=== PATIENT | female | born 1960 | race Caucasian/White ===

== ENCOUNTER 2019-08-15 11:02 | Observation (INO) | payer BC, SELFPAY ==
[2019-08-15] VITALS (11 sets, daily range): BP systolic 127–162; BP diastolic 62–79; PULSE 45–84; RESP 14–22; TEMP 36.7–37.1; O2SAT 95–100; BMI 38.9
--- NOTE | ~2019-08-15 | XR_ITS ---
EXAMINATION: XR chest 2V DATE: 08/15/2019 11:48 INDICATION: Left chest pain. Shortness of breath. TECHNIQUE: Frontal and lateral views of the chest were obtained. COMPARISON: Chest 2 views 07/18/2019 FINDINGS: The chest demonstrates clear lungs without pneumonia, pleural effusion, or pneumothorax. Th e heart size is normal. IMPRESSION: 1. No acute cardiopulmonary disease. Reviewed, dictated and finalized at location A. [employer]
--- NOTE | ~2019-08-15 | CT_ITS ---
EXAMINATION: CT brain wo con DATE: 08/15/2019 11:42 INDICATION: Generalized weakness. TECHNIQUE: Computed tomography (CT) of the head was performed without intravenous contrast. The mA wa s adjusted according to patient size. Iterative reconstruction technique was employed. The dose-lengt h product was 605.33 mGy-cm. COMPARISON: Head CT 05/24/2019 FINDINGS: There is no intracranial hemorrhage, acute infarction, or abnormal intracranial mass lesion . The ventricles are normal in size. The orbits are normal. There is mild mucosal thickening in the e thmoid sinuses. The mastoid air cells are normal. IMPRESSION: 1. Normal brain. Reviewed, dictated and finalized at location [facility]. [employer] IMPRESSION: 1. Normal brain.
--- NOTE | 2019-08-15 11:13 | ECG_ITS ---
Measurements Intervals [place] Rate: 59 P: 46 SD: 141 QRS: 18 QRSD: 104 T: 141 QT: 456 QTc: 452 Interpretive Statements SINUS BRADYCARDIA ST-T WAVE ABNORMALITY IN ANTEROLATERAL LEADS- CONSIDER ISCHEMIA BASELINE ARTIFACT- V6 ABNORMAL ECG Electronically Signed On 08-15-2019 12:05:13 TURNTABLE MAN by Dirk Gamez D.O.
[2019-08-15] MEDS: ASPIRIN 81 MG CHEWABLE TABLET 324 MG (11:30)
--- NOTE | 2019-08-15 11:53 | ED.CHESTPAIN ---
HPI - Chest Pain General Chief Complaint: Chest Pain Stated Complaint: MULTIPLE C/O Time Seen by Provider: 08/15/19 11:29 Source: patient Mode of arrival: ambulatory Limitations: no limitations History of Present Illness HPI narrative: Pt is a 59 y/o female who presents to the ED with c/o constant lt sided CP that started last night. Pt states that her CP started while she was walking into work last night. She notes that she has a mile walk from her car into work and she was 1/[address] in when her CP started. She reports associated lt neck pain, lt arm numbness, SOB, sweats, nausea, and lightheadedness. She got into work, sat down, and drank water but was not feeling better so she went home. This morning she called her PCP's office, Dr. Brown and they recommended she come to the ED. Pt is still having lt sided CP and she now describes it as chest heaviness. Pt also reports diarrhea for a week and a half and states that she has sharp/cramping lower ABD pain. She states that she has some rhinorrhea, but she denies cough, cold, or congestion. Pt denies BLE swelling or pain. MD complaint: chest pain Onset (ago): hour(s) (last night) Timing of current episode: constant Onset: during exertion Pain location: left chest Pain radiation: left arm (numbness) and neck (lt) Quality: heaviness Relieving factors: nothing Exacerbating factors: nothing Associated symptoms: nausea, diaphoresis and dyspnea Related Data Home Medications Medication Instructions Recorded Confirmed clonazepam 1 mg PO HS 05/24/19 05/24/19 omeprazole 20 mg capsule,delayed 20 mg PO DAILY 05/29/19 release Allergies Allergy/AdvReac Type Severity Reaction Status Date / Time losartan AdvReac Intermediate tachycardia Verified 07/24/19 14:32 lisinopril AdvReac Mild Cough Verified 07/24/19 14:32 Review of Systems Review of Systems: Narrative: CONSTITUTIONAL: Reports sweats. ENT: Reports rhinorrhea. Denies congestion CARDIOVASCULAR: Reports lt sided CP and lightheadedness. Denies BLE edema RESPIRATORY: Reports SOB. Denies cough GASTROINTESTINAL: Reports nausea, lower ABD pain, diarrhea MUSCULOSKELETAL: Reports lt neck pain. Denies BLE pain. All systems reviewed & are unremarkable except as noted in HPI and below PMFSH Past Medical History Medical History Anxiety Arthritis Deviated septum Diabetes mellitus Fracture of right ankle GERD (gastroesophageal reflux disease) History of rectal polyps Tear of meniscus of left knee Surgical History Surgical History H/O cardiac catheterization H/O colonoscopy H/O oophorectomy H/O tubal ligation H/O: hysterectomy History of arthroplasty of right ankle History of repair of right rotator cuff History of salpingectomy Social History Social History Smoking status: Former smoker Alcohol intake: never Gender identity (if verbalized by the patient): Female Exam Narrative: Exam Narrative: GENERAL: Well-appearing, well-nourished, and in no acute distress. HEAD: Normocephalic, atraumatic. EYES: PERRLA and EOMI. ENT: Nares clear, no rhinorrhea or epistaxis. Mucous membranes moist. NECK: Supple. CHEST: Clear to auscultation. No respiratory distress. Lt sided reproducible chest wall tenderness HEART: Regular rate and rhythm. No murmur heard. Normal peripheral pulses. ABDOMEN: Soft, nontender, nondistended, normal active bowel sounds. EXTREMITIES: Normal range of motion. No edema. SKIN: Warm, dry, no rash. NEURO: No focal deficits. Alert and oriented X3. Course Course Emergency Course: Patient presenting for evaluation of left-sided chest pain that occurred with exertion. Does seem somewhat consistent with stable angina given exertional symptoms. Pain did relieve following administration of IV fluids, antinausea medicine and morphine. Patient with a heart score of 5 given
[2019-08-15] MEDS: SODIUM CHLORIDE 0.9% IV 1,000 ML 999 ML IV CONT ×2 (11:57→13:41)
[2019-08-15 12:00] LABS: Basophils Percent Auto 0.6 % (0.2-1.2); Eosinophils Percent Auto 0.6 % (0-4.4); Hematocrit 38.7 % (37.0-47.0); Hemoglobin 12.8 g/dL (12.0-15.0); Immature Granulocyte Absolute 0.04 K/mm3 (0.00-0.031); Immature Granulocyte Percent A 0.6 % (0-0.5); Lymphocytes Absolute Auto 1.95 K/mm3 (0.9-3.2); Lymphocytes Percent Auto 30.7 % (18.3-44.2); Mean Corpuscular HGB Conc 33.1 g/dl (32-36); Mean Corpuscular Hemoglobin 29.2 pg (26-34); Mean Corpuscular Volume 88.4 fl (80-100); Mean Platelet Volume 9.5 fl (7.4-10.4); Monocytes Absolute Auto 0.4 K/mm3 (0.1-0.6); Monocytes Percent Auto 6.9 % (2.6-8.5); Neutrophils Absolute Auto 3.8 K/mm3 (1.3-6.7); Neutrophils Percent Auto 60.6 % (45.5-73.1); Platelet Count Result 271 k/mm3 (150-375); Red Blood Count 4.38 M/mm3 (4.2-5.4); Red Cell Distribution Width 12.7 % (11.5-14.5); White Blood Count 6.4 K/mm3 (4.5-10.0)
[2019-08-15 12:09] LABS: Partial Thromboplastin Time 26.2 SECONDS (22.3-36.8); Prothrombin Time 13.2 Seconds (11.1-14.7)
[2019-08-15 12:11] LABS: Alanine Aminotransferase 21 U/L (4-35); Albumin Level 3.8 g/dL (3.5-5.1); Alkaline Phosphatase 75 U/L (38-126); Aspartate Amino Transferase 22 U/L (14-36); Bilirubin,Total 0.3 mg/dL (0.2-1.3); Blood Urea Nitrogen 11 mg/dL (7-17); Carbon Dioxide 27 mmol/L (22-30); Chloride 99 mmol/L (98-107); Estimated CRCL calculation 111 ml/min; Estimated Glomerular Filt Rate > 60; Glucose 218 mg/dL (65-105); Lipase 83 U/L (23-300); Potassium 3.7 mmol/L (3.4-5.0); Sodium 135 mmol/L (137-145)
[2019-08-15 12:23] LABS: Troponin I < 0.012 ng/mL (0.000-0.034)
[2019-08-15] MEDS: ONDANSETRON INJ 4 MG/2 ML VIAL IV PUSH (13:41)
[2019-08-15] MEDS: MORPHINE SULFATE 4 MG/ML INJ IV PUSH (13:42)
[2019-08-15 13:54] LABS: Add Urine Microscopic? YES; Appearance Urine Clear (Clear); Bilirubin Urine Negative (Negative); Blood Urine 1+ (Negative); Color Urine Yellow (Yellow); Glucose Urine UA 1+ mg/dL (Negative); Ketones Urine Trace mg/dL (Negative); Leukocyte Esterase Ur Negative LEU/UL (Negative); Mucus Urine Few /lpf; Nitrate Urine Negative (Negative); Protein Urine Negative (Negative); Squamous Epithelial Cell Urine Occasional /hpf (Few); Urobilinogen Urine Negative mg/dL (<2.0); WBC Urine 0-3 /hpf
[2019-08-15 15:13] LABS: Troponin I < 0.012 ng/mL (0.000-0.034)
--- NOTE | 2019-08-15 15:25 | ADMGEN ---
This patient, Lea Shields, was admitted to [facility]. Patient/family oriented to hospital policies and general routines including ID bracelet, bed and alarms, visiting hours, pain management, procedures, bathroom and other care routines, personal items, smoking policy, room service/diet, and visiting hours. Valuables list has been completed. Information on how to activate the Rapid Response Team has been discussed. Patient/Family are encouraged to report perceived risks to care and to ask questions if they do not understand what they are told or what they should do.
--- NOTE | 2019-08-15 16:00 | ECG_ITS ---
Measurements Intervals [place] Rate: 46 P: 47 OR: 156 QRS: 26 QRSD: 104 T: 33 QT: 461 QTc: 404 Interpretive Statements SINUS BRADYCARDIA BORDERLINE ST-T WAVE ABNORMALITY- DIFFUSE LEADS ABNORMAL ECG Electronically Signed On 08-15-2019 16:55:16 COMMAND CENTER ANALYST by Dirk Gamez D.O.
--- NOTE | 2019-08-15 16:15 | PC.NURSE ---
DR. YUAN HERE TO SEE PT AT BEDSIDE. CONDITION UPDATE GIVEN. AWARE OF PT. C/O ONGOING LOW LEVEL PRESSURE L. UPPER CHEST/SHOULDER AREA. WILL CONTINUE TO MONITOR.
--- NOTE | 2019-08-15 16:59 | PM.CNCAR ---
Assessment and Plan Assessment and plan (1) Atypical chest pain: Code(s): R07.89 - Other chest pain Status: Acute Assessment and Plan: Obtain echo and treadmill stress test in AM. (2) Hypertension: Qualifiers: Hypertension type: essential hypertension Qualified Code(s): I10 - Essential (primary) hypertension Code(s): I10 - Essential (primary) hypertension Status: Acute Assessment and Plan: Stable. (3) Diabetes mellitus: Code(s): E11.9 - Type 2 diabetes mellitus without complications Status: Acute Assessment and Plan: Continue same home medication. (4) Smoking: Code(s): F17.200 - Nicotine dependence, unspecified, uncomplicated Status: Acute Assessment and Plan: Counseled regarding smoking cessation. History of Present Illness History of Present Illness Consult date/time: 08/15/19 16:59 Consult from ED for chest pain. 59 yr old woman with history of DM, hypertension presents to ED for chest pain. States it is a constant lt sided CP that started last night. Pt states that her CP started while she was walking into work last night. She notes that she has a mile walk from her car into work and she was 1/[address] in when her CP started. She reports associated lt neck pain, lt arm numbness, SOB, sweats, nausea, and lightheadedness. She got into work, sat down, and drank water but was not feeling better so she went home. This morning she called her PCP's office, Dr. Brown and they recommended she come to the ED. Pt is still having lt sided CP and she now describes it as chest heaviness. Currently her pain is 1/10 in intensity. Troponins are negative x [address]-T wave abnormality but she had a cath on 08/11/17 for abnormal EKG also that showed non-obstructive CAD (Dr. Sheth: LAD mid 30% stenosis, Diag 10-20% stenosis). Admits to smoking a few cigarettes per day. She does not exercise. Reason For Visit: Chest Pain Review of Systems Constitutional: Constitutional: Reports as per HPI Cardiovascular: Cardiovascular: Reports as per HPI, Reports chest pain, Reports diaphoresis and Denies lightheadedness Respiratory: Respiratory: Reports as per HPI and Reports dyspnea on exertion Gastrointestinal: Gastrointestinal: Reports as per HPI and Denies abdominal pain Genitourinary: Genitourinary: Reports as per HPI and Denies urinary frequency Musculoskeletal: Musculoskeletal: Reports as per HPI Neurologic: Reports as per HPI and Denies Abnormal speech present [facility] Past Medical History Medical History Anxiety Arthritis Deviated septum Diabetes mellitus Fracture of right ankle GERD (gastroesophageal reflux disease) History of rectal polyps Tear of meniscus of left knee Surgical History Surgical History H/O cardiac catheterization H/O colonoscopy H/O oophorectomy H/O tubal ligation H/O: hysterectomy History of arthroplasty of right ankle History of repair of right rotator cuff History of salpingectomy Social History Social History Smoking status: Former smoker Alcohol intake: never Gender identity (if verbalized by the patient): Female Meds Home Medications and Allergies Home Medications Medication Instructions Recorded Confirmed Type clonazepam 1 mg PO HS 05/24/19 05/24/19 History cyclobenzaprine 10 mg PO TID PRN #20 tablet 05/24/19 Rx omeprazole 20 mg capsule,delayed 20 mg PO DAILY 05/29/19 History release duloxetine 30 mg capsule,delayed 30 mg PO DAILY #90 cap 07/07/19 Rx release nebivolol 5 mg tablet 5 mg PO DAILY #30 tablet 07/24/19 07/24/19 Rx celecoxib 200 mg capsule 200 mg PO DAILY #90 cap 07/27/19 Rx metformin 500 mg tablet 1,000 mg PO BID #360 tablet 07/31/19 Rx Allergies Allergy/AdvReac Type Severity Reaction Status Date / Time [facility]
[2019-08-15 18:44] LABS: Troponin I < 0.012 ng/mL (0.000-0.034)
[2019-08-16] VITALS: BP 135/58; PULSE 45; RESP 15; O2SAT 99
[2019-08-16 02:00] VITALS: PULSE 46
[2019-08-16] MEDS: ACETAMINOPHEN 325 MG TABLET 650 MG PO (03:04)
[2019-08-16 04:00] VITALS: BP 150/84; PULSE 46; RESP 15; O2SAT 98
[2019-08-16 05:36] LABS: Glucose Point of Care 166 (65-105)
[2019-08-16 06:00] VITALS: PULSE 46
[2019-08-16] MEDS: IBUPROFEN 400 MG TABLET PO ×2 (06:23→12:02)
[2019-08-16 07:45] VITALS: BP 150/75; PULSE 48; RESP 18; TEMP 36.4; O2SAT 96
--- NOTE | 2019-08-16 08:00 | ECHO_ITS ---
Patient Info Name: Lea Shields Age: 59 years : 1960 Gender: Female Ht: 68 in Wt: 255 lbs BSA: 2.41 m2 HR: 59 bpm BP: 101 / 60 mmHg Technical Quality: Good Exam Date: 08/16/2019 11:25 AM Exam Location: [facility] Exam Room: [facility] Patient Status: Inpatient Admit Date: 08/15/2019 Staff Ordering Physician: Dirk Gamez DO Production Leader: Cecelia Olivia RDCS Attending Provider: Dirk Gamez DO Referring Physician: Franco CEJA; Exam Type: CA echo doppler color flow Study Info Indications - chest pain Complete two-dimensional, color flow and Doppler transthoracic echocardiogram is performed. Summary 1. Left ventricular chamber dimension is normal. 2. Left ventricular systolic function is normal, estimated at 60-65%. 3. There is mildly increased left ventricular wall thickness. 4. The left ventricular diastolic function is grade III diastolic dysfunction. 5. E/e' 9 is minimally elevated. 6. Left atrial chamber dimension is moderately enlarged. 7. There is trace tricuspid valve regurgitation. 8. No pulmonary hypertension, estimated pulmonary arterial systolic pressure is 34 mmHg. 9. There is trace pulmonic regurgitation. 10. Dilated inferior vena cava with >50% collapse upon inspiration consistent with elevated right atrial pressure, 10 mmHg. Left Ventricle E/e' 9 is minimally elevated. Left ventricular chamber dimension is normal. Left ventricular systolic function is normal, estimated at 60-65%. There is mildly increased left ventricular wall thickness. The left ventricular diastolic function is grade III diastolic dysfunction. Right Ventricle Right ventricular chamber dimension is normal. Right ventricular systolic function is normal. Left Atria Left atrial chamber dimension is moderately enlarged. Right Atria Right atrial chamber dimension is normal. Aortic Valve The aortic valve is trileaflet. There is no aortic valve stenosis. There is no aortic valve regurgitation. Pulmonic Valve There is trace pulmonic regurgitation. Mitral Valve There is no mitral valve stenosis. There is no mitral valve regurgitation. Tricuspid Valve There is trace tricuspid valve regurgitation. No pulmonary hypertension, estimated pulmonary arterial systolic pressure is 34 mmHg. Pericardium/Pleural There is no pericardial effusion. Inferior Vena Cava Dilated inferior vena cava with >50% collapse upon inspiration consistent with elevated right atrial pressure, 10 mmHg. Aorta The aortic root size at the sinus of Valsalva is normal. Left Ventricular Outflow Tract Name Value Normal LVOT 2D LVOT Diameter 2.0 cm LVOT Doppler LVOT Peak Gradient 7 mmHg LVOT Mean Gradient 4 mmHg LVOT VTI 32 cm LVOT VTI/AV VTI Ratio 0.9 LVOT Stroke Volume 104 ml LVOT CO 19.2 l/min LVOT CI 8.0 l/min/m2 Pulmonic Valve
--- NOTE | 2019-08-16 08:30 | EST_ITS ---
Patient Info Name: Lea Shields Age: 59 years : 1960 Gender: Female Ht: 68 in Wt: 255 lbs BSA: 2.41 m2 Exam Date: 08/16/2019 8:31 AM Exam Location: [facility] Stress Patient Status: Inpatient Admit Date: 08/15/2019 Staff Ordering Physician: Dirk Gamez DO Attending Provider: Dirk Gamez DO Exercise Technologist: Laith Romero RDCS, RT Exercise Physician: Dirk Gamez DO Exam Type: CA stress test treadmill Study Info A treadmill exercise stress test was performed. Summary 1. 1. Inconclusive Sahil exercise stress test for ischemic ST changes by ECG criteria due to achieving only 60% MPHR for age group. 2. 2. Reduced functional capacity, achieving 7 METs of workload and limited by dizziness. 3. 3. Appropriate HR response to exercise. 4. 4. Appropriate HR recovery at 1 minute post exercise. 5. 5. Hypertensive response to exercise. 6. 6. No imaging with stress testing. 7. 7. Patient informed of the above results. Protocol: Sahil Stress ECG Details Stage: REST Duration (min): 1 min : 30 sec Speed (mph): 0.0 Grade (%): 0 HR (bpm): 48 SBP (mmHg): 130 DBP (mmHg): 83 METS: --- Stage: REST Duration (min): 3 min : 59 sec Speed (mph): 0.0 Grade (%): 0 HR (bpm): 53 SBP (mmHg): 130 DBP (mmHg): 83 METS: --- Stage: STAGE 1 Duration (min): 1 min : 0 sec Speed (mph): 1.7 Grade (%): 10 HR (bpm): 78 SBP (mmHg): 130 DBP (mmHg): 83 METS: --- Stage: STAGE 1 Duration (min): 2 min : 0 sec Speed (mph): 1.7 Grade (%): 10 HR (bpm): 87 SBP (mmHg): 130 DBP (mmHg): 83 METS: --- Stage: STAGE 1 Duration (min): 3 min : 0 sec Speed (mph): 1.7 Grade (%): 10 HR (bpm): 88 SBP (mmHg): 130 DBP (mmHg): 83 METS: --- Stage: STAGE 2 Duration (min): 1 min : 0 sec Speed (mph): 2.5 Grade (%): 12 HR (bpm): 95 SBP (mmHg): 130 DBP (mmHg): 83 METS: --- Stage: STAGE 2 Duration (min): 2 min : 0 sec Speed (mph): 0.0 Grade (%): 0 HR (bpm): 89 SBP (mmHg): 130 DBP (mmHg): 83 METS: --- Stage: STAGE 2 Duration (min): 3 min : 0 sec Speed (mph): 0.0 Grade (%): 0 HR (bpm): 67 SBP (mmHg): 193 DBP (mmHg): 117 METS: --- Stage: STAGE 2 Duration (min): 4 min : 0 sec Speed (mph): 0.0 Grade (%): 0 HR (bpm): 57 SBP (mmHg): 165 DBP (mmHg): 106 METS: --- Stage: STAGE 2 Duration (min): 5 min : 0 sec Speed (mph): 0.0 Grade (%): 0 HR (bpm): 53 SBP (mmHg): 165 DBP (mmHg): 106 METS: --- Stage: STAGE 2 Duration (min): 5 min : 26 sec Speed (mph): 0.0 Grade (%): 0 HR (bpm): 58 SBP (mmHg): 165 DBP (mmHg): 106 METS: --- Stage: RECOVERY Duration (min): 0 min : 24 sec Speed (mph): 0.0 Grade (%): 0 HR (bpm): 55 SBP (mmHg): 165 DBP (mmHg): 106 METS: --- Rest HR: 53 bpm Peak HR: 98 bpm Rest S
--- NOTE | 2019-08-16 08:40 | PC.NURSE ---
0800 patient taken in wheelchair to treadmill stress test.
--- NOTE | 2019-08-16 09:05 | PC.NURSE ---
0900 PT BACK FROM STRESS TEST.
[2019-08-16 11:24] VITALS: BP 106/61; PULSE 60; RESP 16; O2SAT 99
--- NOTE | 2019-08-16 11:24 | PC.NURSE ---
Echo being done at bedside.
[2019-08-16] MEDS: CELECOXIB 200 MG CAPSULE PO (12:00)
[2019-08-16] MEDS: ASPIRIN 81 MG CHEWABLE TABLET PO (12:01)
[2019-08-16] MEDS: DULOXETINE HCL 30 MG CAPSULE.DR PO (12:01)
--- NOTE | 2019-08-16 13:56 | PM.DS ---
DS: Diagnosis Admitting Diagnosis Admitting Diagnosis: Other chest pain 59 yr old woman with history of DM, mild CAD, hypertension presents to ED for chest pain. She was ruled out for [place] by series of troponins and EKG. Her echo shows normal EF and no wall motion abnormalities. She had stress test but she only achieved 60% MPHR for age group due to dizziness which is invalid for ischemia. She denies any more chest pain. Vitals are stable. DS: Summary Time Spent with Patient Time attestation: Total time spent providing and/or coordinating discharge services: Exam Const: General: comfortable and no acute distress Neck: Neck: no JVD Carotids: no bruits Resp: Effort & Inspection: normal respiratory effort Auscultation: no crackles, no rales, no rhonchi and no wheezes Cardio: Rate: regular rate Rhythm: regular rhythm Heart sounds: no murmurs GI: GI Palp: Yes Soft to palpation and No Tenderness to palpation present (GI) Neuro: Speech: normal speech Extrem: Right lower extremity: no edema Left lower extremity: no edema DS: Data Data Completed and Pending Labs on day of discharge: Labs from last 24 hours 08/16/19 08/15/19 08/15/19 05:33 18:17 14:43 POC Capillary Glucose 166 H Troponin I < 0.012 < 0.012 Discharge Plan Discharge Attending physician on discharge: Dirk Gamez Discharging Clinician: Dirk Gamez Patient Disposition: Home, Self-Care Activity: as tolerated Diet: heart healthy Patient Instructions: Chest Pain (DC), Antibiotic Form Stand Alone Forms: General Discharge Information Follow-up/Referrals: Camden Brown MD [Primary Care Provider] - Discharge Medications: Continued Bystolic 5 mg tablet 5 mg PO DAILY Qty: 30 RF: 3 omeprazole 20 mg capsule,delayed release(DR/EC) 20 mg PO DAILY PRN (Reason: Acid Reflux) RF: 0 clonazepam 1 mg tablet 1 mg PO HS PRN (Reason: Sleep) RF: 0 duloxetine [Cymbalta] 30 mg capsule,delayed release(DR/EC) 30 mg PO DAILY Qty: 90 RF: 1 celecoxib [Celebrex] 200 mg capsule 200 mg PO DAILY Qty: 90 RF: 0 metformin 500 mg tablet 1,000 mg PO BID Qty: 360 RF: 0 Date of admission: 08/15/19 14:46 Primary Care Provider: Camden Brown Admitting Provider: Dirk Gamez Attending physician on admission: Dirk Gamez Condition: Stable
--- NOTE | 2019-08-16 15:26 | PC.NURSE ---
Dr Gamez here. Orders for discharge received. Detailed written and verbal instructions reviewed w patient and at bedside. Both verbalize understanding. IV dc'd. Pt ambulated out.
== END 2019-08-16 15:40 | disposition home or self-care (01) ==
LOC: ANHED 14:53 → ANHCPC 14:55
PROVIDERS: Admitting Provider Internal Medicine Cardiovascular Disease; Emergency Provider Emergency Medicine; PCP Family Medicine; Visit Provider Internal Medicine Cardiovascular Disease
DX: R07.89 Other chest pain (principal); I25.10 Atherosclerotic heart disease of native coronary artery without angina pectoris; I10 Essential (primary) hypertension; K21.9 Gastro-esophageal reflux disease without esophagitis; E11.9 Type 2 diabetes mellitus without complications; F17.210 Nicotine dependence, cigarettes, uncomplicated; Z79.899 Other long term (current) drug therapy; Z96.661 Presence of right artificial ankle joint
CPT/HCPCS: 36415; 70450; 71046; 80053; 81001; 83690; 84484; 85025; 85610; 85730; 93005; 93017; 93306; 96361; 96374; 96375; 99285; A9270; G0378; J0131; J2270; J2405; J7030

== ENCOUNTER 2019-08-28 00:27 | Day surgery (SDC) | payer BC, SELFPAY ==
[2019-08-28] VITALS (8 sets, daily range): BP systolic 115–131; BP diastolic 54–73; PULSE 54–65; RESP 15–21; TEMP 36.7–36.9; O2SAT 95–98; BMI 38.3
--- NOTE | 2019-08-28 06:43 | SUR.PREOP ---
ARRIVES AMBULATORY TO [facility] W/ AT SIDE FOR SCHEDULED LHC W/ DR. GREY. DENIES CP OR SOB ON ARRIVAL. A&OX4. STEADY GAIT. ORIENTED TO ROOM AND PROCEDURE. QUESTIONS ANSWERED. IV STARTED, LABS SENT, VS OBTAINED, SKIN PREPPED, CONSENT SIGNED. WILL CONTINUE TO MONITOR.
[2019-08-28 06:56] LABS: Basophils Percent Auto 0.4 % (0.2-1.2); Eosinophils Absolute Auto 0.1 K/mm3 (0-0.3); Eosinophils Percent Auto 0.6 % (0-4.4); Hematocrit 38.2 % (37.0-47.0); Hemoglobin 12.9 g/dL (12.0-15.0); Immature Granulocyte Absolute 0.04 K/mm3 (0.00-0.031); Immature Granulocyte Percent A 0.5 % (0-0.5); Lymphocytes Absolute Auto 1.93 K/mm3 (0.9-3.2); Lymphocytes Percent Auto 24.7 % (18.3-44.2); Mean Corpuscular HGB Conc 33.8 g/dl (32-36); Mean Corpuscular Hemoglobin 29.4 pg (26-34); Mean Platelet Volume 9.1 fl (7.4-10.4); Monocytes Absolute Auto 0.6 K/mm3 (0.1-0.6); Monocytes Percent Auto 7.5 % (2.6-8.5); Neutrophils Absolute Auto 5.2 K/mm3 (1.3-6.7); Neutrophils Percent Auto 66.3 % (45.5-73.1); Platelet Count Result 224 k/mm3 (150-375); Red Blood Count 4.39 M/mm3 (4.2-5.4); Red Cell Distribution Width 12.4 % (11.5-14.5); White Blood Count 7.8 K/mm3 (4.5-10.0)
[2019-08-28 07:08] LABS: Blood Urea Nitrogen 12 mg/dL (7-17); Calcium 8.9 mg/dL (8.4-10.2); Carbon Dioxide 25 mmol/L (22-30); Chloride 102 mmol/L (98-107); Estimated Glomerular Filt Rate > 60; Glucose 258 mg/dL (65-105); Potassium 3.8 mmol/L (3.4-5.0); Sodium 140 mmol/L (137-145)
--- NOTE | 2019-08-28 09:20 | WPDMODSED ---
Moderate Sedation Note-Pt Data Patient Data Diagnosis: Intermittent nonexertional chest pain atypical of angina in a patient who has a history of angiographically nonocclusive coronary disease on a previous exam In 2018 Present Complaint: no complaints this morning Procedure to be performed/Plan: left heart catheterization Allergies Allergy/AdvReac Type Severity Reaction Status Date / Time losartan AdvReac Intermediate tachycardia Verified 08/28/19 07:17 lisinopril AdvReac Mild Cough Verified 08/28/19 07:17 Home Medications Medication Instructions Recorded Confirmed Type clonazepam 1 mg PO HS PRN 05/24/19 08/25/19 History duloxetine 30 mg capsule,delayed 30 mg PO DAILY #90 cap 07/07/19 08/28/19 Rx release celecoxib 200 mg capsule 200 mg PO DAILY #90 cap 07/27/19 08/28/19 Rx metformin 500 mg tablet 1,000 mg PO BID #360 tablet 07/31/19 08/28/19 Rx aspirin [Adult Low Dose Aspirin] 81 mg PO HS 08/25/19 08/28/19 History atorvastatin 20 mg PO HS 08/25/19 08/28/19 History hydralazine 25 mg PO BID 08/25/19 08/28/19 History nebivolol [Bystolic] 2.5 mg PO HS 08/25/19 08/28/19 History Current Medications: Active Medications Sodium Chloride (Normal Saline Iv) 500 mls @ 100 mls/hr IV CONT .Q5H CJ Sedation/Anesthesia: No previous sedation/anesthesia problems (including family history). [facility] Social History Social History Smoking packs per day: 0.5 Smoking cigarettes per day: 10.0 Years smoked: 3 Smoking pack-years: 1.50 Smoking status: Current some day smoker Tobacco type: cigarettes Additional smoking assessment comments: WAS A FORMER SMOKER IN PAST. IN LAST FEW YEARS PICKED IT UP AGAIN Alcohol intake: never Gender identity (if verbalized by the patient): Female Mod Sed Physical Exam Physical Exam Pre Procedural Exam: Normal: Neck, Throat, Airway, Lungs, Heart Size, Heart Rate, Heart Rhythm, Neuro Exam and Extremities and Variation: Appearance ( obese white female no apparent distress) Hours since solid foods: 12 Hours since liquid intake: 12 Internal Medicine - PN: Obj Da Vital Signs Vital Signs: Vital Signs - 24 hr 08/28/19 07:00 Temperature 36.9 C Pulse Rate 57 L Respiratory Rate 16 Blood Pressure 122/71 Pulse Oximetry 98 Meds/Results Medications: Active Medications Generic Name Dose Route Start Last Admin Trade Name Felix PRN Reason Stop Dose Admin Sodium Chloride 500 mls @ 100 mls/hr 08/28/19 06:20 Normal Saline Iv IV CONT .Q5H CJ Labs CBC & Chem 7: 08/28/19 06:49 08/28/19 06:49 Labs: Laboratory Results - last 24 hr 08/28/19 08/28/19 06:49 06:49 WBC 7.8 RBC 4.39 Hgb 12.9 Hct 38.2 MCV 87.0 MCH 29.4 MCHC 33.8 RDW 12.4 Plt Count 224 MPV 9.1 Immature Gran % (Auto) 0.5 Neut % (Auto) 66.3 Lymph % (Auto) 24.7 Steele % (Auto) 7.5 Eos % (Auto) 0.6 Baso % (Auto) 0.4 Lymph # (Auto) 1.93 Steele # (Auto) 0.6 Eos # (Auto) 0.1 Baso # (Auto) 0.0 Abs Immat Gran (auto) 0.04 H Absolute Neuts (auto) 5.2 Absolute Nucleated RBC 0.0 Nucleated RBC % 0.0 Sodium 140 Potassium 3.8 Chloride 102 Carbon Dioxide 25 BUN 12 Creatinine 0.60 L Estim Creat Clear Calc Not Reportable Estimated GFR > 60 Glucose 258 H Calcium 8.9 ASA Classification/Sedation ASA Classification/Sedation ASA Class: II Emergent: No Risks: Risks, benefits and alternatives explained and patient/family accepted plan for sedation. Patient re-evaluated immediately prior to sedation.
--- NOTE | 2019-08-28 09:47 | P.PCNCC_ITS ---
Cardiac Cath Procedure Note Date of procedure:: 08/28/19 Performing physician:: Tai Diana MD Indication:: intermittent chest pain. Reported history of modest CAD identified angiographically in 2018 Brief clinical history:: 59-year-old lady with history of obesity and intermittent episodes of chest pain. She underwent angiography in 2018 which I did personally review this morning and had apparently normal appearing coronary arteries. Because of ongoing symptoms stress testing has been repeated and because of modest abnormalities angiography has been recommended to be repeated. Procedure Procedure performed:: Left heart catheterization with left ventriculography and coronary angiography Angio-Seal to right femoral artery Sedation/Medication given:: fentanyl 50 mg Versed 2 mg case start time 9:30 a.m. case end time 9:45 a.m. sedation provided by Domingo Antony RN, trained observer Access site:: right femoral artery Estimated blood loss:: 15-20 cc Procedure note:: patient was brought to the cardiac catheterization lab in the postabsorptive state the right femoral triangle was prepared in the normal fashion anesthesia was provided with 1% lidocaine infiltrated locally. Using modified Seldinger technique a 5 [place] sheath was placed into the femoral artery. After this left heart catheterization was carried out. I used a 5 [place] angled pigtail catheter to demonstrate left-sided hemodynamics and inject the left ventriculogram in the are AO projection. Following this pullback pressures were measured across the aortic valve. The pigtail catheter was withdrawn and left coronary angiography done was carried out using a 5 [place] FL4 catheter. A 5 [place] JR4 catheter was used to inject the right coronary artery. Angiograms were reviewed and the case was terminated been angiogram was then done of the femoral artery through the sheath after which a 6 [place] Angio- Seal device was deployed with a good hemostatic result. The patient was taken to the holding area for post cath recovery with no sign of groin hematoma nor any other procedural complication. Findings:: Central aortic pressure was 118/70 left ventricle 118 over 3 end- diastolic 12 no systolic gradient pump with year now. The left ventricle is normal in size all segments contract appropriately the global ejection fraction is visually estimated to be 50%. Left main coronary is short but widely patent lad is a large caliber vessel proximally and small caliber in the mid to distal portion. It is angiographically unremarkable free of atherosclerosis. The circumflex is a large caliber vessel and is codominant to the posterior circulation circumflex, the marginal branches and the posterior branches are angiographically free of disease. The right coronary is medium in caliber and codominant and again a small RPDA. The right coronary in small RPDA are angiographically unremarkable. Coronary angiograms are unchanged in comparison with the examination in this laboratory in 2018 Conclusion:: codominant coronary circulation with no angiographic evidence of CAD both today and in my opinion in angiography that was performed previously in 2018. Preserved left ventricular systolic function Angio-Seal hemostasis device deployed to right femoral artery Tai Diana MD FACC
--- NOTE | 2019-08-28 11:17 | SUR.PHASEII ---
0959 Patient returns to [facility] [address] Gallardo. Angioseal to RFA, with no signs of bleeding or hematoma will continue to monitor.
--- NOTE | 2019-08-28 12:09 | SUR.PHASEII ---
1149 Patient ambulated up to bathroom and then to chair. No signs of bleeding or hematoma, will continue to monitor.
--- NOTE | 2019-08-28 13:14 | SUR.PHASEII ---
1300 Discharge instructions reviewed with patient and spouse. All questions answered, IV discontinued, patient dressing and taken out to private vehicle via wheelchair.
== END 2019-08-28 13:38 | disposition home or self-care (01) ==
PROVIDERS: PCP Family Medicine; Visit Provider Specialist
PROC: 4A023N7 Measurement of Cardiac Sampling and Pressure, Left Heart, Percutaneous Approach (ICD-10-PCS; CPT 93452; principal; 2019-08-28 08:30)
DX: R07.89 Other chest pain (principal); R93.1 Abnormal findings on diagnostic imaging of heart and coronary circulation; I10 Essential (primary) hypertension; E78.5 Hyperlipidemia, unspecified; E11.9 Type 2 diabetes mellitus without complications; Z79.84 Long term (current) use of oral hypoglycemic drugs; Z87.891 Personal history of nicotine dependence
CPT/HCPCS: 36415; 80048; 85025; 93458; C1760; C1887; C1894; G0269; J1644; J2250; J3010; J7040

== ENCOUNTER 2019-09-06 12:10 | Outpatient (CLI) | payer BC, SELFPAY ==
--- NOTE | 2019-09-06 20:31 | WPDPFTINT ---
PFT Interpretation PFT Interpretation: DOS: 09/06/2019 REQUESTING: Dr. Grijalva REASON FOR TESTING: Tobacco abuse PULMONARY FUNCTION TESTS Results are reproducible. Spirometry: Mild decreaseFEV1 79% predicted. Mild decrease FVC 77%. FEV1% is normal. No bronchodilator was given. Lung volumes: Normal TLC. Increased RV 134% consistent with mild air trapping. Mild increase airway resistance 158%. Diffusion: DLCO 77%. Normal. Flow volume loop: Mild scooping of the expiratory limb. IMPRESSION: Mild obstructive ventilatory impairment with air trapping. Normal DLCO. No bronchodilator given. Brenda Ordoñez MD
== END 2019-09-06 12:11 | disposition home or self-care (01) ==
PROVIDERS: PCP Family Medicine; Visit Provider Internal Medicine Cardiovascular Disease
DX: Z72.0 Tobacco use (principal); R94.2 Abnormal results of pulmonary function studies
CPT/HCPCS: 94375; 94726; 94729

== ENCOUNTER 2019-12-07 09:12 | Outpatient (CLI) | payer BC, SELFPAY ==
[2019-12-07 09:53] LABS: Hemoglobin A1C 8.3 % (<5.7)
== END 2019-12-07 09:13 | disposition home or self-care (01) ==
PROVIDERS: PCP Family Medicine; Visit Provider Physician Assistant Medical
DX: E11.69 Type 2 diabetes mellitus with other specified complication (principal); E78.5 Hyperlipidemia, unspecified
CPT/HCPCS: 36415; 83036

== ENCOUNTER 2019-12-08 09:21 | Outpatient (CLI) | payer BC, SELFPAY ==
[2019-12-08 10:01] LABS: Alanine Aminotransferase 31 U/L (4-35); Cholesterol 111 mg/dL (0-200); HDL Direct 34 mg/dL; Triglycerides 72 mg/dL (<150)
[2019-12-08 10:12] LABS: LDL Cholesterol Direct 67 mg/dL
== END 2019-12-08 09:22 | disposition home or self-care (01) ==
PROVIDERS: PCP Family Medicine; Visit Provider Internal Medicine Cardiovascular Disease
DX: E11.69 Type 2 diabetes mellitus with other specified complication (principal); E78.5 Hyperlipidemia, unspecified
CPT/HCPCS: 36415; 80061; 84460

== ENCOUNTER 2020-01-17 10:58 | Outpatient (CLI) | payer BC, SELFPAY ==
--- NOTE | 2020-01-23 11:09 | WPDSIXMINUTE ---
Six Minute Walk Six Minute Walk: DOS: 01/17/2020 REQUESTING: Dr Ordoñez REASON FOR TESTING: shortness of breath SIX MINUTE WALK This study was conducted per ATS guidelines. Initial saturation was 94% and pulse was 55. The patient walked for 6 minutes without stopping. Lowest saturation was 90%. Distance walked was 1100 ft/335 m final saturation 90 5%. Highest pulse 103. Pulse returned to baseline after recovery. IMPRESSION: This six minute walk shows mild desaturation to 90% without ana luisa hypoxemia. Distance walked is adequate for age. No supplemental oxygen is indicated with exertion.
== END 2020-01-17 10:59 | disposition home or self-care (01) ==
LOC: ANHPFT 10:59
PROVIDERS: PCP Family Medicine; Visit Provider Internal Medicine Critical Care Medicine
DX: J44.9 Chronic obstructive pulmonary disease, unspecified (principal); R06.02 Shortness of breath
CPT/HCPCS: 94618

== ENCOUNTER 2020-05-03 11:15 | Outpatient (CLI) | payer BC, SELFPAY ==
[2020-05-03 11:57] LABS: Basophils Absolute Auto 0.1 K/mm3 (0.0-0.1); Basophils Percent Auto 0.8 % (0.2-1.2); Eosinophils Percent Auto 0.5 % (0-4.4); Hematocrit 41.3 % (37.0-47.0); Hemoglobin 14.5 g/dL (12.0-15.0); Immature Granulocyte Absolute 0.04 K/mm3 (0.00-0.031); Immature Granulocyte Percent A 0.5 % (0-0.5); Lymphocytes Absolute Auto 2.14 K/mm3 (0.9-3.2); Lymphocytes Percent Auto 27.6 % (18.3-44.2); Mean Corpuscular HGB Conc 35.1 g/dl (32-36); Mean Corpuscular Hemoglobin 30.3 pg (26-34); Mean Corpuscular Volume 86.2 fl (80-100); Mean Platelet Volume 8.7 fl (7.4-10.4); Monocytes Absolute Auto 0.6 K/mm3 (0.1-0.6); Monocytes Percent Auto 7.7 % (2.6-8.5); Neutrophils Absolute Auto 4.9 K/mm3 (1.3-6.7); Neutrophils Percent Auto 62.9 % (45.5-73.1); Platelet Count Result 243 k/mm3 (150-375); Red Blood Count 4.79 M/mm3 (4.2-5.4); Red Cell Distribution Width 12.1 % (11.5-14.5); White Blood Count 7.8 K/mm3 (4.5-10.0)
[2020-05-03 12:12] LABS: Anion Gap 8 mmol/L (8-16); Blood Urea Nitrogen 9 mg/dL (7-17); Calcium 9.4 mg/dL (8.4-10.2); Carbon Dioxide 29 mmol/L (22-30); Chloride 103 mmol/L (98-107); Estimated Glomerular Filt Rate > 60; Glucose 137 mg/dL (65-105); Potassium 4.2 mmol/L (3.4-5.0); Sodium 140 mmol/L (137-145)
[2020-05-03 13:16] LABS: Folic Acid 8.1 ng/mL (2.76->20)
== END 2020-05-03 11:16 | disposition home or self-care (01) ==
LOC: ANHLAB 11:17
PROVIDERS: PCP Family Medicine; Visit Provider Nurse Practitioner Family
DX: E66.9 Obesity, unspecified (principal); R19.7 Diarrhea, unspecified; R53.83 Other fatigue; R20.2 Paresthesia of skin; Z72.0 Tobacco use
CPT/HCPCS: 36415; 80048; 82607; 82746; 83735; 85025

== ENCOUNTER 2020-06-18 08:32 | Outpatient (NON) | payer BC, SELFPAY ==
[2020-06-18 23:32] LABS: SARS-CoV-2 RNA PCR Negative
== END 2020-06-18 08:33 ==
LOC: ANHCOVIDDT 08:34
PROVIDERS: PCP Family Medicine; Visit Provider Family Medicine
DX: R11.2 Nausea with vomiting, unspecified (principal); Z20.828 Contact with and (suspected) exposure to other viral communicable diseases
CPT/HCPCS: 87635; C9803; U0003

== ENCOUNTER 2020-07-02 11:30 | Outpatient (NON) | payer BC, SELFPAY ==
[2020-07-02 23:30] LABS: SARS-CoV-2 RNA PCR Negative
== END 2020-07-02 11:31 ==
LOC: ANHCOVIDDT 11:31
PROVIDERS: PCP Family Medicine; Visit Provider Physician Assistant Medical
DX: R68.89 Other general symptoms and signs (principal); Z20.828 Contact with and (suspected) exposure to other viral communicable diseases
CPT/HCPCS: 87635; C9803; U0003

== ENCOUNTER 2020-07-16 06:36 | Outpatient (CLI) | payer BC, SELFPAY ==
--- NOTE | ~2020-07-16 | MR_ITS ---
EXAMINATION: MR brain/brain stem wo/w con DATE: 07/16/2020 07:43 INDICATION: New daily persistent headache. TECHNIQUE: Magnetic resonance imaging (MRI) of the brain and brainstem was performed without and with 20 mL MultiHance intravenous contrast. Sequences included sagittal and axial T1-weighted FSE, axial diffusion-weighted FS EPI, axial T2*-weighted GRE, axial T2-weighted FLAIR Propeller, and axial T2-we ighted Propeller. Postcontrast sequences included axial and coronal T1-weighted FSE. Apparent diffusi on coefficient (ADC) maps were created. COMPARISON: Head CT 08/15/2019 FINDINGS: There is an empty sella. There is no intracranial hemorrhage, acute infarction, or abnormal intracranial mass lesion. The ventricles are normal in size. There is mild mucosal thickening in the ethmoid sinuses. The mastoid air cells are normal. The orbits are normal. IMPRESSION: 1. Empty sella. Reviewed, dictated and finalized at location A. GRAIN OR LIVESTOCK FARM MANAGER IMPRESSION: 1. Empty sella.
[2020-07-16 07:17] LABS: Estimated Glomerular Filt Rate > 60
[2020-07-16 08:12] LABS: Mean Corpuscular HGB Conc 34.2 g/dl (32-36); Mean Corpuscular Volume 90.5 fl (80-100); Mean Platelet Volume 8.5 fl (7.4-10.4); Platelet Count Result 214 k/mm3 (150-375); Red Cell Distribution Width 13.1 % (11.5-14.5); White Blood Count 6.4 K/mm3 (4.5-10.0)
[2020-07-16 08:24] LABS: Anion Gap 6 mmol/L (8-16); Blood Urea Nitrogen 11 mg/dL (7-17); Carbon Dioxide 30 mmol/L (22-30); Chloride 102 mmol/L (98-107); Estimated Glomerular Filt Rate > 60; Glucose 167 mg/dL (65-105); Potassium 4.2 mmol/L (3.4-5.0); Sodium 138 mmol/L (137-145)
== END 2020-07-16 06:37 | disposition home or self-care (01) ==
PROVIDERS: PCP Family Medicine; Visit Provider Physician Assistant Medical
DX: G44.52 New daily persistent headache (NDPH) (principal)
CPT/HCPCS: 70553; 80048; 84443; 85027; A9577

== ENCOUNTER 2020-07-17 10:29 | Outpatient (CLI) | payer BC, SELFPAY ==
[2020-07-17 11:39] LABS: Cortisol Random 3.97 ug/dL
[2020-07-17 11:43] LABS: Free T4 Free Thyroxine 0.91 ng/mL (0.78-2.19)
[2020-07-20 17:18] LABS: Adrenocorticotropic Hormone 12 pg/mL (6-50)
[2020-07-23 10:54] LABS: FSH 55.6 mIU/mL (***); LH 20.6 mIU/mL (***); Prolactin 5.4 ng/mL (***)
[2020-07-25 00:06] LABS: Estradiol, Ultrasensitive <2 pg/mL
== END 2020-07-17 10:30 | disposition home or self-care (01) ==
PROVIDERS: PCP Family Medicine; Visit Provider Physician Assistant Medical
DX: E23.6 Other disorders of pituitary gland (principal)
CPT/HCPCS: 36415; 82024; 82533; 82670; 83001; 83002; 84146; 84439

== ENCOUNTER → 2020-08-03 12:41 | Outpatient (CLI) | payer BC, SELFPAY ==
[2020-08-04 00:20] LABS: SARS-CoV-2 RNA PCR Negative
== END ==
PROVIDERS: Family Provider Family Medicine; PCP Family Medicine; Visit Provider Internal Medicine Gastroenterology
DX: Z01.812 Encounter for preprocedural laboratory examination (principal); Z20.822 Contact with and (suspected) exposure to COVID-19
CPT/HCPCS: C9803; U0003; U0005

== ENCOUNTER 2020-08-06 01:09 | Day surgery (SDC) | payer BC, SELFPAY ==
[2020-07-24 10:11] VITALS: BMI 35.9
[2020-08-06 07:14] LABS: Glucose Point of Care 163 (65-105)
[2020-08-06 07:15] VITALS: BMI 36.1
[2020-08-06] MEDS: LACTATED RINGERS 1,000 ML 150 ML IV CONT (07:22)
--- NOTE | 2020-08-06 07:56 | WPDANESEPPF ---
Anes - Initial Pre Proc Eval Procedure: Operation Date: 08/06/20 08:30 Proposed Procedures p Screening Colonoscopy - Otoniel Martin MD Date/Time: 08/06/20 07:56 Surgeon: Otoniel Martin MD Pre Op Diagnosis: Neoplasm Screening Patient Data Age: 60 Gender: F Height: 1.73 m Weight: 107.9 kg Allergies Allergy/AdvReac Type Severity Reaction Status Date / Time lisinopril AdvReac Intermediate Cough Verified 08/06/20 07:13 losartan AdvReac Intermediate tachycardia Verified 08/06/20 07:13 Home Medications Medication Instructions Recorded Confirmed Type atorvastatin 20 mg PO HS 08/25/19 07/24/20 History albuterol sulfate 90 mcg/actuation 1 inhalation INHALATION Q4H PRN 30 01/04/20 07/24/20 Rx aerosol inhaler Days #8.5 gm umeclidinium 62.5 mcg-vilanterol 1 inhalation INHALATION Q24H 30 01/04/20 07/24/20 Rx 25 mcg/actuation powdr for Days #60 each inhalation pen needle, diabetic 32 gauge x #100 each 01/08/20 05/03/20 Rx semaglutide 1 mg/dose (2 mg/1.5 1 mg SUB-Q WEEKLY #3 ml 03/14/20 07/24/20 Rx mL) subcutaneous pen injector duloxetine 30 mg capsule,delayed 30 mg PO BID #180 cap 05/03/20 07/24/20 Rx release bupropion HCl 150 mg tablet,12 hr 150 mg PO BID #60 tablet 05/09/20 07/24/20 Rx sustained-release nebivolol 5 mg tablet 5 mg PO DAILY #30 tablet 07/09/20 07/24/20 Rx sodium,potassium,mag sulfates See Rx Instructions .ROUTE 07/23/20 Rx [Suprep Bowel Prep Kit] .COMPLEX #1 ml clonazepam 1 mg PO HS 07/24/20 07/24/20 History insulin lispro [Humalog KwikPen See Rx Instructions .ROUTE .COMPLEX 07/24/20 07/24/20 History Insulin] metformin 1,000 mg PO BID 07/24/20 07/24/20 History hydralazine 50 mg tablet See Rx Instructions .ROUTE 07/29/20 Rx .COMPLEX #90 tablet tizanidine 4 mg tablet 4 mg PO TID PRN #20 tablet 08/02/20 Rx Laboratory Tests 08/06/20 07:11 POC Capillary Glucose 163 mg/dl H mg/dl (65-105) Patient hx anesthesia problems: none Family hx anesthesia problems: none PMFSH Past Medical History Medical History Anxiety Arthritis BMI 36.0-36.9,adult COPD (chronic obstructive pulmonary disease) Deviated septum Diabetes mellitus Family history of lung cancer Fracture of right ankle GERD (gastroesophageal reflux disease) History of rectal polyps History of tobacco abuse Tear of meniscus of left knee Tobacco abuse Surgical History Surgical History H/O cardiac catheterization H/O colonoscopy H/O oophorectomy H/O tubal ligation H/O: hysterectomy History of arthroplasty of right ankle History of repair of right rotator cuff History of salpingectomy Family History Family History Grandparent Hypertension Diabetes mellitus Father Family history of lung cancer Diabetes mellitus Mother Brain aneurysm Diabetes mellitus Sibling Brain aneurysm Diabetes mellitus Other Family history of cardiovascular disease Social History Social History Smoking packs per day: 1 Smoking cigarettes per day: 20.0 Years smoked: 10 Smoking pack-years: 10.00 Smoking status: Former smoker Tobacco type: cigarettes Smoking end date: 06/10/20 Additional smoking assessment comments: WAS A FORMER SMOKER IN PAST, restarted and quit again. Alcohol intake: never Substance use: never Substance use type: does not use Living arrangements: with family Additional occupation/education comments: [employer] Gender identity (if verbalized by the patient): Female Spiritual care concerns: No Anes - Eval Final PreProcedure Day of Procedure 08/06/20 07:56 Patient weight: obese Heart: regular rate and rhythm Lungs: clear to auscultation and normal air movement Airway: Mallampati
--- NOTE | 2020-08-06 08:44 | PM.HPGS ---
History of Present Illness History of Present Illness Consent: Risks, benefits, and alternatives have been discussed and questions answered. Patient agrees to proceed with procedure. Chief complaint: Neoplasm Screening Narrative: Lea Shields is a 60 year old female with colon polyps about 7 years ago. Review of Systems Constitutional: Constitutional: Denies headache(s) and Denies weakness Eyes: Eyes: Denies blurry vision ENT: Reports Normal hearing present, Denies headache(s) and Denies neck pain Cardiovascular: Cardiovascular: Denies chest pain and Denies dyspnea Respiratory: Respiratory: Denies dyspnea Gastrointestinal: Gastrointestinal: Reports no additional gastrointestinal complaints Genitourinary: Genitourinary: Denies dysuria Musculoskeletal: Musculoskeletal: Denies neck pain Integumentary/Breasts: Skin/Breast: Denies dry skin Neurologic: Reports Normal hearing present, Denies headache(s) and Denies weakness Psychiatric: Psychiatric: Denies anxiety Endocrine: Endocrine: Denies change in body appearance Hematologic/Lymphatic: Hematologic/Lymphatic: Denies easy bleeding Allergic/Immunologic: Allergic/Immunologic: Denies urticaria PMFSH Past Medical History Medical History Anxiety Arthritis BMI 36.0-36.9,adult COPD (chronic obstructive pulmonary disease) Deviated septum Diabetes mellitus Family history of lung cancer Fracture of right ankle GERD (gastroesophageal reflux disease) History of rectal polyps History of tobacco abuse Tear of meniscus of left knee Tobacco abuse Surgical History Surgical History H/O cardiac catheterization H/O colonoscopy H/O oophorectomy H/O tubal ligation H/O: hysterectomy History of arthroplasty of right ankle History of repair of right rotator cuff History of salpingectomy Family History Family History Grandparent Hypertension Diabetes mellitus Father Family history of lung cancer Diabetes mellitus Mother Brain aneurysm Diabetes mellitus Sibling Brain aneurysm Diabetes mellitus Other Family history of cardiovascular disease Social History Social History Smoking packs per day: 1 Smoking cigarettes per day: 20.0 Years smoked: 10 Smoking pack-years: 10.00 Smoking status: Former smoker Tobacco type: cigarettes Smoking end date: 06/10/20 Additional smoking assessment comments: WAS A FORMER SMOKER IN PAST, restarted and quit again. Alcohol intake: never Substance use: never Substance use type: does not use Living arrangements: with family Additional occupation/education comments: [employer] Gender identity (if verbalized by the patient): Female Spiritual care concerns: No Meds Home Medications and Allergies Home Medications Medication Instructions Recorded Confirmed Type atorvastatin 20 mg PO HS 08/25/19 07/24/20 History albuterol sulfate 90 mcg/actuation 1 inhalation INHALATION Q4H PRN 30 01/04/20 07/24/20 Rx aerosol inhaler Days #8.5 gm umeclidinium 62.5 mcg-vilanterol 1 inhalation INHALATION Q24H 30 01/04/20 07/24/20 Rx 25 mcg/actuation powdr for Days #60 each inhalation pen needle, diabetic 32 gauge x #100 each 01/08/20 05/03/20 Rx semaglutide 1 mg/dose (2 mg/1.5 1 mg SUB-Q WEEKLY #3 ml 03/14/20 07/24/20 Rx mL) subcutaneous pen injector duloxetine 30 mg capsule,delayed 30 mg PO BID #180 cap 05/03/20 07/24/20 Rx release bupropion HCl 150 mg tablet,12 hr 150 mg PO BID #60 tablet 05/09/20 07/24/20 Rx sustained-release nebivolol 5 mg tablet 5 mg PO DAILY #30 tablet 07/09/20 07/24/20 Rx sodium,potassium,mag sulfates See Rx Instructions .ROUTE 07/23/20 Rx [Suprep Bowel Prep Kit] .COMPLEX #1 ml clonazepam 1 mg PO HS 07/24/20 07/24/20
[2020-08-06 09:09] VITALS: BP 126/71; PULSE 55; RESP 16; O2SAT 97
[2020-08-06 09:19] VITALS: BP 136/79; PULSE 55; RESP 18; O2SAT 98
[2020-08-06 09:25] LABS: Glucose Point of Care 137 (65-105)
[2020-08-06 09:28] VITALS: BP 150/82; PULSE 57; RESP 17; O2SAT 100
== END 2020-08-06 09:41 | disposition home or self-care (01) ==
PROVIDERS: Family Provider Family Medicine; PCP Family Medicine; Visit Provider Internal Medicine Gastroenterology
PROC: 0DJD8ZZ Inspection of Lower Intestinal Tract, Via Natural or Artificial Opening Endoscopic (ICD-10-PCS; CPT 45378; principal; 2020-08-06 08:30)
DX: Z12.11 Encounter for screening for malignant neoplasm of colon (principal); D12.2 Benign neoplasm of ascending colon; K64.8 Other hemorrhoids; Z79.4 Long term (current) use of insulin; Z79.84 Long term (current) use of oral hypoglycemic drugs; E11.9 Type 2 diabetes mellitus without complications; J44.9 Chronic obstructive pulmonary disease, unspecified; K21.9 Gastro-esophageal reflux disease without esophagitis; Z87.891 Personal history of nicotine dependence; E66.9 Obesity, unspecified; Z68.36 Body mass index [BMI] 36.0-36.9, adult
CPT/HCPCS: 45385; 88305; J2704; J7120

== ENCOUNTER → 2020-10-11 09:38 | Outpatient (CLI) | payer BC, SELFPAY ==
[2020-10-11 19:22] LABS: SARS-CoV-2 RNA PCR Negative
== END ==
PROVIDERS: PCP Family Medicine; Visit Provider Nurse Practitioner Family
DX: Z20.822 Contact with and (suspected) exposure to COVID-19 (principal); R68.89 Other general symptoms and signs
CPT/HCPCS: C9803; U0003; U0005

== ENCOUNTER 2020-10-11 10:19 | Outpatient (CLI) | payer BC, SELFPAY ==
[2020-10-11 10:56] LABS: Basophils Absolute Auto 0.1 K/mm3 (0.0-0.1); Basophils Percent Auto 0.8 % (0.2-1.2); Eosinophils Absolute Auto 0.1 K/mm3 (0-0.3); Eosinophils Percent Auto 1.1 % (0-4.4); Hematocrit 40.9 % (37.0-47.0); Hemoglobin 14.3 g/dL (12.0-15.0); Immature Granulocyte Absolute 0.04 K/mm3 (0.00-0.031); Immature Granulocyte Percent A 0.6 % (0-0.5); Lymphocytes Absolute Auto 1.69 K/mm3 (0.9-3.2); Lymphocytes Percent Auto 23.3 % (18.3-44.2); Mean Corpuscular Hemoglobin 31.1 pg (26-34); Mean Corpuscular Volume 88.9 fl (80-100); Mean Platelet Volume 8.6 fl (7.4-10.4); Monocytes Absolute Auto 0.5 K/mm3 (0.1-0.6); Monocytes Percent Auto 7.3 % (2.6-8.5); Neutrophils Absolute Auto 4.8 K/mm3 (1.3-6.7); Neutrophils Percent Auto 66.9 % (45.5-73.1); Platelet Count Result 228 k/mm3 (150-375); Red Cell Distribution Width 12.5 % (11.5-14.5); White Blood Count 7.2 K/mm3 (4.5-10.0)
[2020-10-11 11:05] LABS: Alanine Aminotransferase 45 U/L (4-35); Albumin Level 4.4 g/dL (3.5-5.1); Alkaline Phosphatase 59 U/L (38-126); Anion Gap 8 mmol/L (8-16); Aspartate Amino Transferase 39 U/L (14-36); Bilirubin,Total 0.2 mg/dL (0.2-1.3); Blood Urea Nitrogen 14 mg/dL (7-17); Calcium 9.2 mg/dL (8.4-10.2); Carbon Dioxide 27 mmol/L (22-30); Chloride 103 mmol/L (98-107); Estimated Glomerular Filt Rate > 60; Glucose 172 mg/dL (65-105); Sodium 138 mmol/L (137-145)
== END 2020-10-11 10:20 | disposition home or self-care (01) ==
LOC: ANHLAB 10:20
PROVIDERS: PCP Family Medicine; Visit Provider Nurse Practitioner Family
DX: R10.9 Unspecified abdominal pain (principal); R11.2 Nausea with vomiting, unspecified
CPT/HCPCS: 36415; 80053; 85025

== ENCOUNTER 2020-10-17 07:31 | Outpatient (RCR) | payer BC, SELFPAY ==
[2020-10-17 09:59] LABS: Cortisol Baseline 8.63 ug/dL
== END 2021-01-15 23:59 | disposition home or self-care (01) ==
LOC: ANHVASCINF 07:31
PROVIDERS: PCP Family Medicine; Visit Provider Internal Medicine Endocrinology, Diabetes & Metabolism
DX: E23.7 Disorder of pituitary gland, unspecified (principal)
CPT/HCPCS: 36415; 82533; 96372; J0834

== ENCOUNTER → 2020-11-05 08:32 | Outpatient (CLI) | payer BC, SELFPAY ==
[2020-11-05 20:47] LABS: SARS-CoV-2 RNA PCR Negative
== END ==
PROVIDERS: PCP Family Medicine; Visit Provider Nurse Practitioner Family
DX: R68.89 Other general symptoms and signs (principal); Z20.822 Contact with and (suspected) exposure to COVID-19
CPT/HCPCS: C9803; U0003; U0005

== ENCOUNTER 2020-11-13 10:57 | Outpatient (CLI) | payer BC, SELFPAY ==
--- NOTE | ~2020-11-13 | XR_ITS ---
EXAMINATION: XR chest 2V DATE: 11/13/2020 11:11 INDICATION: Acute bronchitis, unspecified TECHNIQUE: Frontal and lateral views of the chest are obtained COMPARISON: 08/15/2019 FINDINGS: The lungs are free of acute opacities. There is no pleural effusion or pneumothorax. The ca rdiomediastinal silhouette is normal. Chronic mild anterior wedging is again noted in the lower thora cic spine. IMPRESSION: 1. No acute cardiopulmonary abnormality. Reviewed, dictated and finalized at location A.
== END 2020-11-13 10:58 | disposition home or self-care (01) ==
PROVIDERS: PCP Family Medicine; Visit Provider Physician Assistant Medical
DX: J20.9 Acute bronchitis, unspecified (principal)
CPT/HCPCS: 71046

== ENCOUNTER 2021-02-03 15:18 | Outpatient (CLI) | payer BC, SELFPAY ==
--- NOTE | 2021-02-26 15:24 | WPDHOMESLEEP ---
Sleep Study - Home Unattended Date of Study: 02/03/21 Ordering Provider: Champ Grijalva MD Interpreting Provider: Brenda Ordoñez MD Home Sleep Study Type: Apnea Link Air Height: 1.73 m Weight: 107.048 kg Body Mass Index: 35.9 Neck Circumference (inches): 16.5 Mcdowell: 20 Reason for Sleep Study Non-refreshing sleep Sleep History Lea Shields is a 60 year old female who does not have quality sleep. She wakes up feeling tired, Frequently awakens at night feeling short of breath and occasionally awakens at night with heartburn, belching or coughing. She constantly snores loudly and has difficulty sleeping when she has a cold. She occasionally gasps for breath at night. She occasionally has breathing problems at night reported to her by others. She constantly sweats excessively at night and notices her heart pounding or racing during the night. She frequently falls asleep involuntarily rarely while driving. She does not have loss of muscle tone with strong emotion. She constantly has daytime difficulties due to excessive sleepiness. She constantly feels paralyzed on waking or falling asleep and constantly has vivid dreamlike scenes upon awakening or falling asleep. She has occasionally afraid to go to sleep. She occasionally has nightmares. She frequently remembers her dreams. She frequently has racing thoughts. She constantly feels sad, depressed and anxious. She frequently has muscular tension and notices parts of her body jerking. She frequently kicks at night. She frequently has crawling and aching feelings in her legs. She frequently has leg pain at night. She does not have morning jaw pain. She frequently grinds her teeth during sleep. She constantly is bothered by pain during the day and awakened by pain at night. She constantly wakes up feeling stiff in the morning with sore achy muscles and pain in the neck and spine. She has nightmares, headaches, fatigue, sexual problems, memory problems and concentration difficulties. Normal bedtime is 8:00 p.m., taking 2 hours to fall asleep, typically waking 1-2 times at night to urinate. She wakes at 2:00 a.m.. Her weekend schedule is the same. She estimates getting 5 hours of sleep at night. She works split shifts, but at the present she is off work. She does not nap. A short nap may be refreshing. She is drowsy for 3 hours after waking. Ciaran feels better in the afternoon than the morning. Habits: Quit tobacco. Caffeine 2 cups a day. No alcohol or recreational drugs. FOR[facility]LY [facility], LATER [facility] Past Medical History Medical History (Updated 02/26/21 @ 18:30 by Brenda Ordoñez MD) Anxiety Arthritis BMI 35.0-35.9,adult BMI 36.0-36.9,adult BMI 38.0-38.9,adult COPD (chronic obstructive pulmonary disease) Depression with anxiety Deviated septum Diabetes mellitus Family history of lung cancer Fracture of right ankle GERD (gastroesophageal reflux disease) History of rectal polyps History of tobacco abuse Hypertension Tear of meniscus of left knee Tobacco abuse Surgical History Surgical History H/O cardiac catheterization H/O colonoscopy H/O oophorectomy H/O tubal ligation H/O: hysterectomy History of arthroplasty of right ankle History of repair of right rotator cuff History of salpingectomy Family History Family History Grandparent Hypertension Diabetes mellitus Father Family history of lung cancer Diabetes mellitus Mother Brain aneurysm Diabetes mellitus Sibling Brain aneurysm Diabetes mellitus Other Family history of cardiovascular disease Social History Social History Smoking packs per day: 1 Smoking cigarettes per day: 20.0 Years smoked: 10 Smoking pack-years: 10.00 Smoking status: Former smoker Tobacco type: cigarettes Second hand tobacco smoke exposu
[2021-02-26 18:32] VITALS: BMI 35.9
== END 2021-02-04 11:29 | disposition home or self-care (01) ==
LOC: ANHCSM 15:18
PROVIDERS: PCP Family Medicine; Visit Provider Internal Medicine Cardiovascular Disease
DX: G47.10 Hypersomnia, unspecified (principal); G47.33 Obstructive sleep apnea (adult) (pediatric)
CPT/HCPCS: 95806

== ENCOUNTER → 2021-07-17 10:35 | Outpatient (CLI) | payer BC, SELFPAY ==
[2021-07-17 20:55] LABS: SARS-CoV-2 RNA PCR Negative
== END ==
PROVIDERS: PCP Family Medicine; Visit Provider Family Medicine
DX: R09.81 Nasal congestion (principal); R42 Dizziness and giddiness; Z20.822 Contact with and (suspected) exposure to COVID-19
CPT/HCPCS: C9803; U0003; U0005

== ENCOUNTER 2021-07-21 09:32 | Emergency (ER) | payer BC, SELFPAY ==
--- NOTE | ~2021-07-21 | XR_ITS ---
EXAMINATION: XR chest 1V portable DATE: 07/21/2021 10:18 INDICATION: Shortness of breath. COVID-19 exposure. TECHNIQUE: A single frontal view of the chest was obtained. COMPARISON: Chest 2 views 11/13/2020 FINDINGS: The chest demonstrates clear lungs without pneumonia, pleural effusion, or pneumothorax. Th e heart size is normal. IMPRESSION: 1. No acute cardiopulmonary disease. Reviewed, dictated and finalized at location B. IT COLLECTION SPECIALIST
[2021-07-21 09:38] VITALS: BP 109/80; PULSE 63; RESP 23; TEMP 36.2; O2SAT 98
--- NOTE | 2021-07-21 10:01 | ECG_ITS ---
Measurements Intervals [place] Rate: 61 P: 41 UT: 148 QRS: -20 QRSD: 113 T: 32 QT: 401 QTc: 404 Interpretive Statements SINUS RHYTHM ST-T WAVE ABNORMALITY IN ANTERIOR LEADS- CONSIDER ISCHEMIA BASELINE ARTIFACT- I, II, III, AVR, AVL, AVF, V2-V6 ABNORMAL ECG Electronically Signed On 07-21-2021 11:43:04 ACCOUNT MANAGER EDUCATION by Dirk Gamez D.O.
--- NOTE | 2021-07-21 10:04 | ED.GENADULT ---
HPI - General Adult General Chief complaint: Unspecified Stated complaint: I think I have COVID Time Seen by Provider: 07/21/21 09:43 Source: patient Mode of arrival: ambulatory Limitations: no limitations History of Present Illness HPI narrative: This is a 61-year-old female that presents to the emergency department for cold symptoms present x3 days. Reports cough, congestion, sore throat, and myalgias. Reports she has also been feeling short of breath the last couple of days. She is not COVID vaccinated. Her daughter has COVID. Denies fever, or chest pain. Related Data Home Medications Medication Instructions Recorded Confirmed atorvastatin 20 mg tablet 20 mg PO HS 11/19/20 06/04/21 topiramate 50 mg tablet 50 mg PO BID tablet 06/04/21 06/04/21 Allergies Allergy/AdvReac Type Severity Reaction Status Date / Time lisinopril AdvReac Intermediate Cough Verified 06/04/21 10:45 losartan AdvReac Intermediate tachycardia Verified 06/04/21 10:45 Review of Systems Review of Systems: CONSTITUTIONAL: Denies fever ENT: Reports rhinorrhea, congestion, sore throat CARDIOVASCULAR: Denies chest pain, or edema. RESPIRATORY: Reports cough and dyspnea. MUSCULOSKELETAL: Reports back pain, and myalgia. NEUROLOGIC: Denies numbness, or weakness. All systems reviewed & are unremarkable except as noted in HPI and below PMFSH Past Medical History Medical History Anxiety Arthritis BMI 35.0-35.9,adult BMI 36.0-36.9,adult BMI 38.0-38.9,adult COPD (chronic obstructive pulmonary disease) Depression with anxiety Deviated septum Diabetes mellitus Family history of lung cancer Fracture of right ankle GERD (gastroesophageal reflux disease) History of rectal polyps History of tobacco abuse Hypertension Tear of meniscus of left knee Tobacco abuse Surgical History Surgical History H/O cardiac catheterization H/O colonoscopy H/O oophorectomy H/O tubal ligation H/O: hysterectomy History of arthroplasty of right ankle History of repair of right rotator cuff History of salpingectomy Family History Family History Grandparent Hypertension Diabetes mellitus Father Family history of lung cancer Diabetes mellitus Mother Brain aneurysm Diabetes mellitus Sibling Brain aneurysm Diabetes mellitus Other Family history of cardiovascular disease Social History Social History Smoking packs per day: 1 Smoking cigarettes per day: 20.0 Years smoked: 10 Smoking pack-years: 10.00 Tobacco type: cigarettes Second hand tobacco smoke exposure: No Smoking end date: 06/10/20 Additional smoking assessment comments: WAS A FORMER SMOKER IN PAST, restarted and quit again. Alcohol intake: never Substance use: never Substance use type: does not use Additional occupation/education comments: [employer] Gender identity (if verbalized by the patient): Female Spiritual care concerns: No Exam Narrative: GENERAL: Well-appearing, well-nourished, and in no acute distress. HEAD: Normocephalic, atraumatic. EYES: EOMI. ENT: Nares clear, no rhinorrhea or epistaxis. Mucous membranes moist. Oropharynx without tonsillar hypertrophy exudate or other lesions. Bilateral TMs pearly portillo non-bulging NECK: Supple. No adenopathy or masses. CHEST: Clear to auscultation. No respiratory distress. No wheezes rales or rhonchi HEART: Regular rate and rhythm. No murmur heard. Normal peripheral pulses. ABDOMINAL: Soft, nontender, normoactive bowel sounds BACK: No midline spinal tenderness EXTREMITIES: Normal range of motion. No edema. SKIN: Warm, dry, no rash. NEURO: No focal deficits. Alert and oriented x3. Normal gait PSYCH: Normal mood and affect Course Vital Signs Vital signs: Vital Signs
[2021-07-21 10:06] VITALS: O2SAT 98
[2021-07-21] MEDS: ACETAMINOPHEN 500 MG TABLET 1000 MG PO (10:22)
[2021-07-21 10:28] LABS: Anion Gap 10 mmol/L (8-16); Basophils Percent Auto 0.3 % (0.2-1.2); Blood Urea Nitrogen 17 mg/dL (7-17); Calcium 8.5 mg/dL (8.4-10.2); Carbon Dioxide 20 mmol/L (22-30); Chloride 107 mmol/L (98-107); Estimated CRCL calculation 69 ml/min; Estimated Glomerular Filt Rate 57; Glucose 169 mg/dL (65-110); Hemoglobin 14.1 g/dL (12.0-15.0); Immature Granulocyte Absolute 0.02 K/mm3 (0.00-0.031); Immature Granulocyte Percent A 0.7 % (0-0.5); Lymphocytes Absolute Auto 1.13 K/mm3 (0.9-3.2); Lymphocytes Percent Auto 38.8 % (18.3-44.2); Mean Corpuscular HGB Conc 33.6 g/dl (32-36); Mean Corpuscular Hemoglobin 30.6 pg (26-34); Mean Corpuscular Volume 91.1 fl (80-100); Monocytes Absolute Auto 0.4 K/mm3 (0.1-0.6); Monocytes Percent Auto 12.7 % (2.6-8.5); Neutrophils Absolute Auto 1.4 K/mm3 (1.3-6.7); Neutrophils Percent Auto 47.5 % (45.5-73.1); Platelet Count Result 168 k/mm3 (150-375); Potassium 3.3 mmol/L (3.4-5.0); Red Blood Count 4.61 M/mm3 (4.2-5.4); Sodium 137 mmol/L (137-145); White Blood Count 2.9 K/mm3 (4.5-10.0)
[2021-07-21 10:31] LABS: Prothrombin Time 13.5 Seconds (11.1-14.7)
[2021-07-21 10:32] LABS: Partial Thromboplastin Time 28.3 SECONDS (22.3-36.8)
[2021-07-21 10:35] LABS: D Dimer 0.54 ug/mL (<0.48)
[2021-07-21 10:51] LABS: Troponin I < 0.012 ng/mL (0.000-0.034)
[2021-07-21] MEDS: POTASSIUM CHLORIDE 20 MEQ PACKET (FOR LIQUID) 40 MEQ PO (11:41)
[2021-07-21 11:55] LABS: Add Urine Microscopic? YES; Appearance Urine Clear (Clear); Bilirubin Urine Negative (Negative); Blood Urine Negative (Negative); Color Urine Yellow (Yellow); Glucose Urine UA Negative (Negative); Ketones Urine Negative (Negative); Leukocyte Esterase Ur Trace LEU/UL (Negative); Mucus Urine Moderate /lpf; Nitrate Urine Negative (Negative); Protein Urine Negative (Negative); Specific Grav Ur 1.023 (1.001-1.035); Squamous Epithelial Cell Urine Occasional /hpf (Few); Urobilinogen Urine Negative mg/dL (<2.0)
[2021-07-21 11:57] VITALS: BP 109/76; PULSE 59; RESP 18; O2SAT 97
[2021-07-21 12:34] VITALS: BP 102/69; PULSE 56; RESP 18; O2SAT 98
[2021-07-21 20:23] LABS: SARS-CoV-2 RNA PCR Positive
== END 2021-07-21 12:35 | disposition home or self-care (01) ==
PROVIDERS: Physician Assistant; Emergency Provider Emergency Medicine; PCP Family Medicine
DX: U07.1 COVID-19 (principal); N30.00 Acute cystitis without hematuria; E87.6 Hypokalemia; J44.9 Chronic obstructive pulmonary disease, unspecified; I10 Essential (primary) hypertension; E11.9 Type 2 diabetes mellitus without complications; K21.9 Gastro-esophageal reflux disease without esophagitis; F41.8 Other specified anxiety disorders; M19.90 Unspecified osteoarthritis, unspecified site; Z87.19 Personal history of other diseases of the digestive system; Z87.891 Personal history of nicotine dependence; R94.31 Abnormal electrocardiogram [ECG] [EKG]; Z79.84 Long term (current) use of oral hypoglycemic drugs
CPT/HCPCS: 36415; 71045; 80048; 81001; 84484; 85025; 85380; 85610; 85730; 87086; 93005; 99284; A9270; C9803; U0003; U0005

== ENCOUNTER 2021-07-31 08:51 | Outpatient (CLI) | payer BC, SELFPAY ==
[2021-07-31 09:10] LABS: Basophils Percent Auto 0.3 % (0.2-1.2); Eosinophils Percent Auto 0.5 % (0-4.4); Hematocrit 42.1 % (37.0-47.0); Hemoglobin 14.3 g/dL (12.0-15.0); Immature Granulocyte Absolute 0.08 K/mm3 (0.00-0.031); Immature Granulocyte Percent A 1.3 % (0-0.5); Lymphocytes Absolute Auto 1.99 K/mm3 (0.9-3.2); Lymphocytes Percent Auto 32.8 % (18.3-44.2); Mean Corpuscular Hemoglobin 30.6 pg (26-34); Mean Corpuscular Volume 90.1 fl (80-100); Mean Platelet Volume 8.7 fl (7.4-10.4); Monocytes Absolute Auto 0.6 K/mm3 (0.1-0.6); Monocytes Percent Auto 9.6 % (2.6-8.5); Neutrophils Absolute Auto 3.4 K/mm3 (1.3-6.7); Neutrophils Percent Auto 55.5 % (45.5-73.1); Platelet Count Result 246 k/mm3 (150-375); Red Blood Count 4.67 M/mm3 (4.2-5.4); Red Cell Distribution Width 13.1 % (11.5-14.5); White Blood Count 6.1 K/mm3 (4.5-10.0)
[2021-07-31 09:19] LABS: Anion Gap 12 mmol/L (8-16); Blood Urea Nitrogen 13 mg/dL (7-17); Calcium 9.7 mg/dL (8.4-10.2); Carbon Dioxide 23 mmol/L (22-30); Chloride 107 mmol/L (98-107); Estimated Glomerular Filt Rate > 60; Glucose 116 mg/dL (65-110); Potassium 4.3 mmol/L (3.4-5.0); Sodium 142 mmol/L (137-145)
== END 2021-07-31 08:52 | disposition home or self-care (01) ==
PROVIDERS: PCP Family Medicine; Visit Provider Physician Assistant Medical
DX: E87.6 Hypokalemia (principal); U07.1 COVID-19
CPT/HCPCS: 36415; 80048; 85025

== ENCOUNTER 2021-08-19 12:24 | Emergency (ER) | payer BC, SELFPAY ==
--- NOTE | ~2021-08-19 | XR_ITS ---
EXAMINATION: XR lumbar spine min 4V EXAM DATE: 08/19/2021 13:08 INDICATION: Fall x2 days ago, pain radiating down left leg. TECHNIQUE: Lumber spine frontal, lateral, bilateral oblique projections. Coned down frontal and lat eral L5-S1 lumbar projections for interpretation. Comparison is made to prior examination from 013. FINDINGS: Progression in the moderate to severe mid and lower lumbar facet arthropathy compared to pr ior study. Mild diffuse lumbar disc disease. There are no acute fractures identified. Sacrum, sacroil iac joints, sacral arcuate lines are intact. Paraspinal soft tissue is unremarkable. IMPRESSION: 1. Moderate to severe lumbar facet arthropathy. 2. No acute findings. Reviewed, dictated and finalized at location B. UNT AUDITOR
[2021-08-19 12:31] VITALS: BP 138/80; PULSE 69; RESP 18; TEMP 36.5; O2SAT 99
[2021-08-19] MEDS: IBUPROFEN 600 MG TABLET PO (12:47)
--- NOTE | 2021-08-19 12:48 | ED.FALL ---
HPI - Fall General Chief Complaint: Fall Stated Complaint: Fall, Back pain Time Seen by Provider: 08/19/21 12:28 Source: RN notes reviewed History of Present Illness HPI Narrative: Patient presents emergency room from home for back pain. Patient states that 2 days ago she slipped on the ice she states she was able to catch herself before she fully fell to the ground states she twisted her back at that time. She states since that time she had pain in the bilateral lower back that radiates in the left buttocks she denies fully falling to the ground and denies directly striking her back denies any head injury denies any numbness or tingling of the lower extremities or bowel or bladder sense states she has been taking Tylenol 3 she had leftover from previous prescription at home for the pain Related Data Home Medications Medication Instructions Recorded Confirmed atorvastatin 20 mg tablet 20 mg PO HS 11/19/20 07/28/21 topiramate 50 mg tablet 50 mg PO BID tablet 06/04/21 07/28/21 Allergies Allergy/AdvReac Type Severity Reaction Status Date / Time lisinopril AdvReac Intermediate Cough Verified 07/28/21 12:30 losartan AdvReac Intermediate tachycardia Verified 07/28/21 12:30 Review of Systems Review of Systems: Gen.: Denies fevers or chills ENT: Denies congestion Respiratory: Denies shortness of breath or cough CV: Denies chest pain GI: Denies abdominal pain nausea, emesis denies bowel or bladder incontinence Musculoskeletal: See Neuro: Denies numbness, tingling, weakness or focal weakness Skin: Denies rash Except as documented, all other systems reviewed and negative PMF Past Medical History Medical History Anxiety Arthritis BMI 35.0-35.9,adult BMI 36.0-36.9,adult BMI 38.0-38.9,adult COPD (chronic obstructive pulmonary disease) Depression with anxiety Deviated septum Diabetes mellitus Family history of lung cancer Fracture of right ankle GERD (gastroesophageal reflux disease) History of rectal polyps History of tobacco abuse Hypertension Tear of meniscus of left knee Tobacco abuse Surgical History Surgical History H/O cardiac catheterization H/O colonoscopy H/O oophorectomy H/O tubal ligation H/O: hysterectomy History of arthroplasty of right ankle History of repair of right rotator cuff History of salpingectomy Family History Family History Grandparent Hypertension Diabetes mellitus Father Family history of lung cancer Diabetes mellitus Mother Brain aneurysm Diabetes mellitus Sibling Brain aneurysm Diabetes mellitus Other Family history of cardiovascular disease Social History Social History Smoking packs per day: 1 Smoking cigarettes per day: 20.0 Years smoked: 10 Smoking pack-years: 10.00 Smoking status: Former smoker Tobacco type: cigarettes Second hand tobacco smoke exposure: No Smoking end date: 06/10/20 Additional smoking assessment comments: WAS A FORMER SMOKER IN PAST, restarted and quit again. Alcohol intake: never Substance use: never Substance use type: does not use Additional occupation/education comments: [employer] Gender identity (if verbalized by the patient): Female Spiritual care concerns: No Exam Narrative: APPEARANCE: No acute distress, nontoxic, resting in bed Eyes: EOMI HEENT: Normocephalic, atraumatic, CV: Regular rate and rhythm without murmur RESPIRATORY: No respiratory distress. Clear to auscultation bilaterally. Abdomen: Soft and nontender, no rebound or guarding MUSCULOSKELETAl: Moves all extremities, no clubbing cyanosis or edema Back: No midline lumbar tenderness to palpation or step-off, tender to palpation over bilateral paravertebral muscles L3-5 , pain increased w
[2021-08-19 13:46] VITALS: BP 128/75; PULSE 64; RESP 16; O2SAT 97
== END 2021-08-19 13:48 | disposition home or self-care (01) ==
PROVIDERS: Emergency Provider Emergency Medicine; PCP Family Medicine
DX: S39.92XA Unspecified injury of lower back, initial encounter (principal); J44.9 Chronic obstructive pulmonary disease, unspecified; E11.9 Type 2 diabetes mellitus without complications; I10 Essential (primary) hypertension; K21.9 Gastro-esophageal reflux disease without esophagitis; M19.90 Unspecified osteoarthritis, unspecified site; F41.8 Other specified anxiety disorders; Z87.19 Personal history of other diseases of the digestive system; Z87.891 Personal history of nicotine dependence; Z79.84 Long term (current) use of oral hypoglycemic drugs; W00.0XXA Fall on same level due to ice and snow, initial encounter
CPT/HCPCS: 72110; 99283; A9270

== ENCOUNTER 2021-09-17 08:42 | Outpatient (CLI) | payer BC, SELFPAY ==
[2021-09-17 09:05] LABS: Alanine Aminotransferase 25 U/L (4-35); Albumin Level 4.4 g/dL (3.5-5.1); Alkaline Phosphatase 69 U/L (38-126); Anion Gap 7 mmol/L (8-16); Aspartate Amino Transferase 27 U/L (14-36); Bilirubin,Total 0.2 mg/dL (0.2-1.3); Blood Urea Nitrogen 11 mg/dL (7-17); Calcium 9.1 mg/dL (8.4-10.2); Carbon Dioxide 25 mmol/L (22-30); Chloride 109 mmol/L (98-107); Cholesterol 141 mg/dL (0-200); Estimated Glomerular Filt Rate > 60; Glucose 124 mg/dL (65-110); HDL Direct 48 mg/dL; Potassium 4.1 mmol/L (3.4-5.0); Sodium 141 mmol/L (137-145); Triglycerides 99 mg/dL (<150)
[2021-09-17 09:16] LABS: LDL Cholesterol Direct 66 mg/dL
[2021-09-17 10:18] LABS: Creatinine Urine 54.7 mg/dL
[2021-09-17 10:23] LABS: MALB Creatinine Ratio 12.8 mg/g (0-30)
== END 2021-09-17 08:43 | disposition home or self-care (01) ==
LOC: ANHLAB 08:44
PROVIDERS: PCP Family Medicine; Visit Provider Physician Assistant Medical
DX: E11.9 Type 2 diabetes mellitus without complications (principal); Z79.4 Long term (current) use of insulin; I10 Essential (primary) hypertension; E78.49 Other hyperlipidemia
CPT/HCPCS: 36415; 80053; 80061; 82043

== ENCOUNTER 2023-03-09 08:49 | Outpatient (CLI) | payer BC, SELFPAY ==
[2023-03-09 09:40] LABS: Hematocrit 40.2 % (37.0-47.0); Hemoglobin 13.9 g/dL (12.0-15.0); Mean Corpuscular HGB Conc 34.6 g/dl (32-36); Mean Corpuscular Volume 89.5 fl (80-100); Platelet Count Result 236 k/mm3 (150-375); Red Blood Count 4.49 M/mm3 (4.2-5.4); Red Cell Distribution Width 12.3 % (11.5-14.5); White Blood Count 5.9 K/mm3 (4.5-10.0)
[2023-03-09 10:03] LABS: Hemoglobin A1C 9.9 % (<5.7)
[2023-03-09 10:10] LABS: Alanine Aminotransferase 29 U/L (6-35); Albumin Level 4.1 g/dL (3.5-5.1); Alkaline Phosphatase 85 U/L (38-126); Anion Gap 8 mmol/L (8-16); Aspartate Amino Transferase 27 U/L (14-36); Bilirubin,Total 0.6 mg/dL (0.2-1.3); Blood Urea Nitrogen 15 mg/dL (7-17); Calcium 8.8 mg/dL (8.4-10.2); Carbon Dioxide 27 mmol/L (22-30); Chloride 98 mmol/L (98-107); Cholesterol 201 mg/dL (0-200); Estimated Glomerular Filt Rate > 60; Glucose 297 mg/dL (65-110); HDL Direct 42 mg/dL; Sodium 133 mmol/L (137-145); Triglycerides 116 mg/dL (<150)
[2023-03-09 10:27] LABS: LDL Cholesterol Direct 125 mg/dL
[2023-03-09 10:36] LABS: Creatinine Urine 39.7 mg/dL
[2023-03-09 11:20] LABS: MALB Creatinine Ratio 24.2 mg/g (0-30); Microalbumin Urine Random 9.6 mg/L (0-16.7)
== END 2023-03-09 08:50 | disposition home or self-care (01) ==
PROVIDERS: PCP Family Medicine; Visit Provider Nurse Practitioner Family
DX: F41.9 Anxiety disorder, unspecified (principal); I10 Essential (primary) hypertension; E11.9 Type 2 diabetes mellitus without complications
CPT/HCPCS: 36415; 80053; 80061; 82043; 83036; 84443; 85027

== ENCOUNTER 2023-04-12 06:35 | Outpatient (CLI) | payer BC, SELFPAY ==
--- NOTE | ~2023-04-12 | MR_ITS ---
EXAMINATION: MR lumbar spine wo con DATE: 04/12/2023 07:17 INDICATION: Low back pain. Lumbar spondylosis. TECHNIQUE: Magnetic resonance imaging (MRI) of the lumbar spine was performed without intravenous con trast. Sequences included sagittal T2-weighted FSE, sagittal T2-weighted FS FSE, sagittal T1-weighted FSE, and axial T2-weighted FSE. COMPARISON: Lumbar spine MRI 08/31/2012, radiographs 08/19/2021 FINDINGS: There is 4 degrees dextrocurvature of lumbar spine. There is mild chronic anterior wedging of T11 vertebral body. There is severely decreased disc height at T11-T12. The distal spinal cord sig nal intensity is normal. The conus medullaris is at L1. The following disc levels are specifically di scussed: T11-T12: The disc does not extend beyond the endplate margin. There is severe right and moderate left facet joint osteoarthritis. There is mild right neural foraminal stenosis. There is no central canal stenosis. L1-L2: The disc does not extend beyond the endplate margin. There is mild bilateral facet joint osteo arthritis. There is no neural foraminal stenosis. There is no central canal stenosis. L2-L3: The disc is bulging. There is severe right and mild left facet joint osteoarthritis. There is mild bilateral neural foraminal stenosis. There is no central canal stenosis. L3-L4: The disc is bulging. There is severe bilateral facet joint osteoarthritis. There is mild bilat eral neural foraminal stenosis. There is mild central canal stenosis. L4-L5: The disc is bulging. There is severe bilateral facet joint osteoarthritis. There is mild bilat eral neural foraminal stenosis. There is mild central canal stenosis. L5-S1: The disc is bulging. There is severe right and moderate left facet joint osteoarthritis. There is mild bilateral neural foraminal stenosis. There is mild central canal stenosis. IMPRESSION: 1. Mild lumbar spondylosis, worsened from 08/31/2012. Reviewed, dictated and finalized at location E.
== END 2023-04-12 06:36 | disposition home or self-care (01) ==
PROVIDERS: PCP Family Medicine; Visit Provider Nurse Practitioner Family
DX: M51.9 Unspecified thoracic, thoracolumbar and lumbosacral intervertebral disc disorder (principal); M47.896 Other spondylosis, lumbar region
CPT/HCPCS: 72148

== ENCOUNTER 2023-09-20 02:05 | Day surgery (SDC) | payer BC, SELFPAY ==
[2023-09-16 12:55] VITALS: BMI 33.4
--- NOTE | 2023-09-16 13:11 | SUR.PREOP ---
Report to the Outpatient Waiting Room, entrance under the green pavilion located off [facility], at time 1100 on date 09/20/23. Planned Procedure Time: 1200. Time changes happen often and if your time is changed the preop area will call you the afternoon before. - You and your visitor will be asked to self-screen and do not enter if you have any COVID symptoms. - A mask is optional within the hospital at this time. Patients may have clear liquids (water, carbonated beverages, clear teas, apple juice) until 3 hours prior to surgery with a maximum of 20 ounces. - No food OR DRINK FOR 2 HRS BEFORE PROCEDURE. Take the following medications with a SIP of water the morning of surgery: LOCAL CASE, MEDS NORMAL DO NOT STOP ANY OF YOUR OTHER PRESCRIPTION MEDICATIONS PRIOR TO SURGERY ?EXCEPT THE FOLLOWING Medications to discontinue per physician N/A Date to take last dose N/A Please no make-up, nail lao, hairspray, perfume, deodorant, or body powder the day of surgery. No jewelry (including any body piercings) or valuables the day of surgery, leave them at home. Please take a shower or bath the night before, or the morning of, surgery with an antibacterial soap. Wear comfortable, loose fitting clothing. Children are encouraged to wear pajamas. - Jewelry must be removed prior to entering the operating room. Rings and piercings that are not removed may be cut off. - The hospital will not accept responsibility for valuables. - Please leave all valuables, including medications, at home the day of surgery. If you are going home after surgery, a licensed tow car driver must drive you home. - NO public transportation without another adult if you receive anesthesia. - We recommend that an adult stay with you for 24 hours following discharge. - We also recommend that you do not drive, make important decision, drink alcoholic beverages, or take any drugs that were not prescribed by your health care provider for at least 24 hours after your discharge time. For Pediatric surgeries, we recommend two adults accompany the child home. Follow any additional instructions given to you from your surgeon. If you or anyone in your household have experienced Covid symptoms in the past week, please notify your surgeon or the nurse liaison at the phone number below for possible testing. Telephone instructions given to RAFI L SPARROWK and asked if any additional questions and then verbalized understanding. Patient advised to call surgeon office or pre surgery nurse liaison [phone] if any additional questions.
--- NOTE | ~2023-09-20 | XR_ITS ---
EXAMINATION: XR fluoroscopy no charge DATE: 09/20/2023 12:55 INDICATION: Left L3, L4 and L5 medial branch dorsal ramus blocks TECHNIQUE: 6 fluoroscopic images of the left lower lumbar spine were obtained during procedure perfor med by Dr. Montano. Radiologist was not present for the imaging or procedure. The amount of fluoroscopy time used during this procedure was 0.3 minutes. COMPARISON: None. FINDINGS: Images demonstrate needle tips and small amount of injected contrast projecting along the junction of the left transverse processes and pedicles of L4, L5 and junction of the lumbar pedicle and superior margin of the left sacral ala at S1 in expected location of the medial branches of the L3-L5 dorsal rami. IMPRESSION: 1. Fluoroscopy utilized during pain management procedure. See procedure note for further detail. Reviewed, dictated and finalized at location B. IMPRESSION: 1. Fluoroscopy utilized during pain management procedure. See procedure note fo r further detail.
--- NOTE | 2023-09-20 08:03 | WPDHPUPDATE1 ---
History and Physical Update Update Date/Time: 09/20/23 08:03 History and Physical has been reviewed, including an updated exam of the patient. There are NO changes in the patient's condition. Risks, benefits, and alternatives have been discussed and questions answered. Patient agrees to proceed with procedure.
--- NOTE | 2023-09-20 08:05 | W.PM.PROC2 ---
Procedure Note - Detailed Date of Procedure 09/20/23 Pre-op Diagnosis Lumbosacral spondylosis, chronic low back pain Post-op Diagnosis Same Procedure Performed Left L3, L4, L5 medial branch/ dorsal ramus nerve block (# 1) addressing the left L4-5, L5-S1 facet joint under fluoroscopic guidance with contrast control. Surgeon Arcenio Montano MD Anesthesia Local Description of Procedure INFORMED CONSENT: Risks, benefits and alternatives to the procedure were discussed in detail with the patient who expressed explicit understanding and consent to proceed. Patient was informed verbally and in written form regarding the risks associated with the procedure including the low risk of serious infection, bleeding/bruising, allergic reaction, nerve or organ injury, paralysis, procedural site pain or discomfort, worsening pain and/or mobility, failure to treat and/or disfigurement. The patient expressed explicit understanding and consent to proceed. All materials required for the procedure were available prior to procedure start. Site and side were marked prior to procedure and confirmed in the presence of the patient. PROCEDURE IN DETAIL: The patient was brought to the procedural suite and placed in the prone position. Patient was made comfortable with use of pillows under the head/chest, hips and ankles. Skin overlying the injection site on the affected side(s) was prepared broadly with ChloraPrep applicator and draped in a sterile manner. Aseptic technique was used throughout. The endplates of the vertebral bodies at the site(s) of interest were aligned in the AP view. Ipsilateral oblique angulation was utilized to optimize visualization of the intersection between the superior articulating process and transverse process at each target site. Local anesthesia was established by infiltration with approximately 5 mL of 1% lidocaine via a 1-1/2 inch 27-gauge needle. A 25-gauge 3.5 inch Quincke spinal needle was advanced until the needle tip contacted periosteum at the target site, left L3. Lateral view was utilized to confirm the appropriate placement of the needle tip just anterior to the facet line and superior to the pedicle. In the Lateral view, 0.25 mL of Omnipaque 300 contrast medium was injected after negative aspiration for CSF, blood or other bodily fluid, showing appropriate extra-articular spread of contrast without evidence of intravascular, foraminal or intrathecal placement. A 0.5 mL solution of 0.25% PF bupivacaine was injected after negative repeat aspiration. Appropriate spread of the injectate was confirmed with washout of previously injected contrast. No parasthesias were elicited. Needle was removed completely intact without difficulty. The same exact procedure was repeated for all remaining levels on the ipsilateral side, left L4, L5 medial branches/dorsal ramus, modified as necessary to accommodate for the new target location with identical findings and results and no evidence of complication. Images were saved and documented in the patient chart. Patient's skin was cleaned and sterile bandage applied. The patient tolerated the procedure well. The patient was transported to the recovery area in stable condition where they were observed for an appropriate amount of time prior to discharge, without evidence of complication. Patient was instructed on the appropriate completion of a pain diary over the next 12-24 hours. The patient was instructed to avoid excessive activity for the next 48 hours, including climbing and frequent use of stairs. Showers only for 48 hours. They were instructed not to drive or operate heavy machinery for 24 hours. They are to monitor for severe headaches, fevers, chills, night sweats, erythema/swelling at the site or any other signs of infection, bleeding/bruising, bowel or bladder changes as well as new pain, weakness or numbness in the upper or lower extremity. Should they notice these changes, they are instructed to call our off
[2023-09-20 11:42] VITALS: BP 154/90; PULSE 59; RESP 14; TEMP 36.2; O2SAT 99
[2023-09-20 11:45] VITALS: BP 154/90; PULSE 59; RESP 14; TEMP 36.2; O2SAT 99
[2023-09-20 12:20] VITALS: BP 188/97; PULSE 53; RESP 16; O2SAT 98
[2023-09-20 12:30] VITALS: BP 186/87; PULSE 53; RESP 16; O2SAT 98
[2023-09-20 12:35] VITALS: BP 169/80; PULSE 58; RESP 18; O2SAT 98
[2023-09-20 12:44] VITALS: BP 162/73; PULSE 52; RESP 16; O2SAT 99
[2023-09-20] MEDS: BUPivacaine HCL 0.25% PF 30 ML VIAL INFILTRATE (12:48)
== END 2023-09-20 13:16 | disposition home or self-care (01) ==
PROVIDERS: PCP Family Medicine; Visit Provider Anesthesiology Pain Medicine
PROC: (CPT 64493; principal; 2023-09-20 12:00)
DX: M47.817 Spondylosis without myelopathy or radiculopathy, lumbosacral region (principal); M48.061 Spinal stenosis, lumbar region without neurogenic claudication; G89.29 Other chronic pain
CPT/HCPCS: 64493; 64494; 99199

== ENCOUNTER 2023-11-02 00:37 | Day surgery (SDC) | payer BC, SELFPAY ==
[2023-10-22 09:37] VITALS: BMI 35.2
--- NOTE | 2023-10-22 09:46 | PC.NURSE ---
Report to the Outpatient Waiting Room, entrance under the green pavilion located off [facility], at time 0945 on date 11/02/23. Planned Procedure Time: 1045. Time changes happen often and if your time is changed the preop area will call you the afternoon before. - You and your visitor will be asked to self-screen and do not enter if you have any COVID symptoms. - A mask is optional within the hospital at this time. MAY HAVE LIGHT BREAKFAST. - No food OR DRINK AFTER 0845. Take the following medications with a SIP of water the morning of surgery: PRESCRIBED DO NOT STOP ANY OF YOUR OTHER PRESCRIPTION MEDICATIONS PRIOR TO SURGERY ?EXCEPT THE FOLLOWING Medications to discontinue per physician: ALEVE Date to take last dose: PER DR. LLOYD Please no make-up, nail kyrgyz, hairspray, perfume, deodorant, or body powder the day of surgery. No jewelry (including any body piercings) or valuables the day of surgery, leave them at home. Please take a shower or bath the night before, or the morning of, surgery with an antibacterial soap. Wear comfortable, loose fitting clothing. - Jewelry must be removed prior to entering the operating room. Rings and piercings that are not removed may be cut off. - The hospital will not accept responsibility for valuables. - Please leave all valuables, including medications, at home the day of surgery. FOLLOW INSTRUCTIONS FROM DR. LLOYD REGARDING DRIVING. Follow any additional instructions given to you from your surgeon. If you or anyone in your household have experienced Covid symptoms in the past week, please notify your surgeon or the nurse liaison at the phone number below for possible testing. Telephone instructions given to MICHA MCKEE and asked if any additional questions and then verbalized understanding. Patient advised to call surgeon office or pre surgery nurse liaison [phone] if any additional questions.
--- NOTE | ~2023-11-02 | XR_ITS ---
XR fluoroscopy no charge Indication: Left L3, L4 and L5 medial branch nerve block TECHNIQUE: Fluoroscopy used during Left L3, L4 and L5 medial branch nerve block performed by [Margarito Montano MD] on 11/02/2023. 32 seconds of fluoroscopy with 5 fluoroscopic images captured. FINDINGS: Correlate with procedure note. IMPRESSION: Fluoroscopy used during Left L3, L4 and L5 medial branch nerve block. Reviewed, dictated and finalized at location B. IMPRESSION: Fluoroscopy used during Left L3, L4 and L5 medial branch nerve bloc kAntoinette
--- NOTE | 2023-11-02 10:07 | PM.HPGS ---
History of Present Illness History of Present Illness Consent: Risks, benefits, and alternatives have been discussed and questions answered. Patient agrees to proceed with procedure. Chief complaint: Spinal Stenosis Lumbar Region Narrative: Lea Marcial is a 63 year old female with chronic, recalcitrant and disabling Left lumbosacral back pain secondary to degenerative spondylosis with failure to respond to aggressive conservative measures including PT, oral and topical analgesics, opioid and nonopioid analgesics, rest, time and activity/behavioral modification over the past 1-2 years who presents for diagnostic/prognostic medial branch blocks (#2) under fluoroscopic guidance and with contrast control. Review of Systems Review of Systems: All systems reviewed & are unremarkable except as noted in HPI and below PMFSH Past Medical History Medical History Anxiety Arthritis BMI 35.0-35.9,adult BMI 36.0-36.9,adult BMI 37.0-37.9, adult BMI 38.0-38.9,adult COPD (chronic obstructive pulmonary disease) Depression with anxiety Deviated septum Diabetes mellitus Facet arthritis of lumbar region Family history of lung cancer Fracture of right ankle GERD (gastroesophageal reflux disease) History of rectal polyps History of tobacco abuse Hypertension Tear of meniscus of left knee Tobacco abuse Visual disturbance Surgical History Surgical History H/O cardiac catheterization H/O colonoscopy H/O oophorectomy H/O tubal ligation H/O: hysterectomy History of arthroplasty of right ankle History of repair of right rotator cuff History of salpingectomy Family History Family History Grandparent Hypertension Diabetes mellitus Father Family history of lung cancer Diabetes mellitus Mother Brain aneurysm Diabetes mellitus Sibling Brain aneurysm Diabetes mellitus Other Family history of cardiovascular disease Social History Social History Smoking packs per day: 1 Smoking cigarettes per day: 20.0 Years smoked: 10 Smoking pack-years: 10.00 Smoking status: Former smoker Tobacco type: cigarettes Second hand tobacco smoke exposure: No Smoking end date: 07/12/17 Additional smoking assessment comments: WAS A FORMER SMOKER IN PAST, restarted and quit again. Alcohol intake: never Substance use: never Substance use type: does not use Living arrangements: with family Occupation/Education: occupation Additional occupation/education comments: [employer] Gender identity (if verbalized by the patient): Female Spiritual care concerns: No Meds Home Medications and Allergies Home Medications Medication Instructions Recorded Confirmed Type naproxen sodium 220 mg tablet 220 mg PO Q12H PRN Pain, Mild 03/09/23 10/22/23 History (Pk) rosuvastatin 10 mg tablet (Crestor) 10 mg PO DAILY #90 tabs 06/18/23 10/22/23 Rx omeprazole 20 mg capsule,delayed See Rx Instructions .Route 07/05/23 10/22/23 Rx release .COMPLEX #90 caps glimepiride 1 mg tablet 1 mg PO QAM #30 tabs 09/02/23 10/22/23 Rx tirzepatide 5 mg/0.5 mL 5 mg (0.5 mL) subcut WEEKLY #2 mL 09/24/23 10/22/23 Rx subcutaneous pen injector (Rc) Allergies Allergy/AdvReac Type Severity Reaction Status Date / Time lisinopril AdvReac Intermediate Cough Verified 10/22/23 09:36 losartan AdvReac Intermediate tachycardia Verified 10/22/23 09:36 Exam Narrative: The patient's physical exam is essentially unchanged from prior examination on 09/28/2023. Specifically, patient demonstrates normal lung capacity, tidal volume and respiratory rate without wheezes, crackles, rales or rubs. Heart rate and rhythm are regular without murmurs, gallops or rubs. No JVD. Pulses 2+ globa
--- NOTE | 2023-11-02 10:10 | WPDHPUPDATE1 ---
History and Physical Update Update Date/Time: 11/02/23 10:10 History and Physical has been reviewed, including an updated exam of the patient. There are NO changes in the patient's condition. Risks, benefits, and alternatives have been discussed and questions answered. Patient agrees to proceed with procedure.
--- NOTE | 2023-11-02 10:11 | W.PM.PROC2 ---
Procedure Note - Detailed Date of Procedure 11/02/23 Pre-op Diagnosis lumbosacral spondylosis, chronic low back pain Post-op Diagnosis Same Procedure Performed Diagnostic left Lumbar Medial Branch/Dorsal Ramus Blocks at L3, L4, L5 Treating the Ipsilateral L4-5, L5-S1 Facet Joints Under Fluoroscopic Guidance and with Contrast Control. (2 levels blocked). Surgeon Arcenio Montano MD Anesthesia Local Description of Procedure INFORMED CONSENT: Risks, benefits and alternatives to the procedure were discussed in detail with the patient who expressed explicit understanding and consent to proceed. Patient was informed verbally and in written form regarding the risks associated with the procedure including the low risk of serious infection, bleeding/bruising, allergic reaction, nerve or organ injury, paralysis, procedural site pain or discomfort, worsening pain and/or mobility, failure to treat and/or disfigurement. The patient expressed explicit understanding and consent to proceed. All materials required for the procedure were available prior to procedure start. Site and side were marked prior to procedure and confirmed in the presence of the patient. PROCEDURE IN DETAIL: The patient was brought to the procedural suite and placed in the prone position. Patient was made comfortable with use of pillows under the head/chest, hips and ankles. Skin overlying the injection site on the affected side(s) was prepared broadly with ChloraPrep applicator and draped in a sterile manner. Aseptic technique was used throughout. The endplates of the vertebral bodies at the site(s) of interest were aligned in the AP view. Ipsilateral oblique angulation was utilized to optimize visualization of the intersection between the superior articulating process and transverse process at each target site. Local anesthesia was established by infiltration with approximately 5 mL of 1% lidocaine via a 1-1/2 inch 27-gauge needle. A 25-gauge 3.5 inch Quincke spinal needle was advanced until the needle tip contacted periosteum at the target site, left L3. Lateral view was utilized to confirm the appropriate placement of the needle tip just anterior to the facet line and superior to the pedicle. In the Lateral view, 0.25 mL of Omnipaque 300 contrast medium was injected after negative aspiration for CSF, blood or other bodily fluid, showing appropriate extra-articular spread of contrast without evidence of intravascular, foraminal or intrathecal placement. A 0.5 mL solution of 2.0% preservative-free lidocaine was injected after negative repeat aspiration. Appropriate spread of the injectate was confirmed with washout of previously injected contrast. No parasthesias were elicited. Needle was removed completely intact without difficulty. [The same exact procedure was repeated for all remaining levels on the ipsilateral side, left L4, L5 medial branches/dorsal ramus, modified as necessary to accommodate for the new target location with identical findings and results and no evidence of complication.] Images were saved and documented in the patient chart. Patient's skin was cleaned and sterile bandage applied. The patient tolerated the procedure well. The patient was transported to the recovery area in stable condition where they were observed for an appropriate amount of time prior to discharge, without evidence of complication. Patient was instructed on the appropriate completion of a pain diary over the next 12-24 hours. The patient was instructed to avoid excessive activity for the next 48 hours, including climbing and frequent use of stairs. Showers only for 48 hours. They were instructed not to drive or operate heavy machinery for 24 hours. They are to monitor for severe headaches, fevers, chills, night sweats, erythema/swelling at the site or any other signs of infection, bleeding/bruising, bowel or bladder changes as well as new pain, weakness or numbness in the upper or lower extremity. Should they not
[2023-11-02 11:48] VITALS: BMI 34.6
[2023-11-02 11:58] VITALS: BP 153/76; PULSE 60; RESP 16; TEMP 36.3; O2SAT 100
[2023-11-02 12:30] VITALS: BP 179/72; PULSE 58; RESP 16; O2SAT 99
[2023-11-02 12:41] VITALS: BP 186/76; PULSE 52; RESP 16; O2SAT 100
[2023-11-02] MEDS: LIDOCAINE HCL 2% PF INJ 5 ML VIAL 10 ML INFILTRATE (12:46)
[2023-11-02 12:53] VITALS: BP 138/61; PULSE 52; RESP 20; O2SAT 100
== END 2023-11-02 13:04 | disposition home or self-care (01) ==
PROVIDERS: PCP Family Medicine; Visit Provider Anesthesiology Pain Medicine
PROC: (CPT 64493; principal; 2023-11-02 12:15)
DX: M47.817 Spondylosis without myelopathy or radiculopathy, lumbosacral region (principal); G89.29 Other chronic pain; E11.9 Type 2 diabetes mellitus without complications; J44.9 Chronic obstructive pulmonary disease, unspecified; I10 Essential (primary) hypertension; F41.8 Other specified anxiety disorders; K21.9 Gastro-esophageal reflux disease without esophagitis; Z87.891 Personal history of nicotine dependence; Z79.85 Long-term (current) use of injectable non-insulin antidiabetic drugs; Z79.84 Long term (current) use of oral hypoglycemic drugs
CPT/HCPCS: 64493; 64494; 99199; Q9965

== ENCOUNTER 2023-11-11 10:17 | Outpatient (CLI) | payer BC, SELFPAY ==
[2023-11-11 11:00] LABS: Basophils Absolute Auto 0.1 K/mm3 (0.0-0.1); Basophils Percent Auto 0.9 % (0.2-1.2); Eosinophils Absolute Auto 0.1 K/mm3 (0-0.3); Eosinophils Percent Auto 1.6 % (0-4.4); Hematocrit 40.5 % (37.0-47.0); Immature Granulocyte Absolute 0.02 K/mm3 (0.00-0.031); Immature Granulocyte Percent A 0.4 % (0-0.5); Lymphocytes Absolute Auto 1.32 K/mm3 (0.9-3.2); Lymphocytes Percent Auto 23.8 % (18.3-44.2); Mean Corpuscular HGB Conc 34.6 g/dl (32-36); Mean Corpuscular Hemoglobin 31.2 pg (26-34); Mean Corpuscular Volume 90.2 fl (80-100); Mean Platelet Volume 8.8 fl (7.4-10.4); Monocytes Absolute Auto 0.5 K/mm3 (0.1-0.6); Monocytes Percent Auto 8.3 % (2.6-8.5); Neutrophils Absolute Auto 3.6 K/mm3 (1.3-6.7); Platelet Count Result 236 k/mm3 (150-375); Red Blood Count 4.49 M/mm3 (4.2-5.4); Red Cell Distribution Width 13.2 % (11.5-14.5); White Blood Count 5.6 K/mm3 (4.5-10.0)
[2023-11-11 11:12] LABS: Alanine Aminotransferase 25 U/L (6-35); Albumin Level 4.7 g/dL (3.5-5.1); Alkaline Phosphatase 56 U/L (38-126); Anion Gap 8 mmol/L (4-12); Aspartate Amino Transferase 27 U/L (14-36); Bilirubin,Total 0.6 mg/dL (0.2-1.3); Blood Urea Nitrogen 13 mg/dL (7-17); Calcium 9.6 mg/dL (8.4-10.2); Carbon Dioxide 26 mmol/L (22-30); Chloride 106 mmol/L (98-107); Estimated Glomerular Filt Rate > 60; Glucose 103 mg/dL (65-110); Potassium 3.9 mmol/L (3.4-5.0); Sodium 140 mmol/L (137-145)
== END 2023-11-11 10:18 | disposition home or self-care (01) ==
LOC: ANHLAB 10:19
PROVIDERS: PCP Family Medicine; Visit Provider Nurse Practitioner Adult Health
DX: E11.9 Type 2 diabetes mellitus without complications (principal)
CPT/HCPCS: 36415; 80053; 85025

== ENCOUNTER 2024-02-02 14:39 | Outpatient (CLI) | payer BC, SELFPAY ==
[2024-02-02 15:30] LABS: Anion Gap 10 mmol/L (4-12); Blood Urea Nitrogen 15 mg/dL (7-17); Calcium 9.1 mg/dL (8.4-10.2); Carbon Dioxide 26 mmol/L (22-30); Chloride 104 mmol/L (98-107); Estimated Glomerular Filt Rate > 60; Glucose 111 mg/dL (65-110); Potassium 3.7 mmol/L (3.4-5.0); Sodium 140 mmol/L (137-145)
== END 2024-02-02 14:40 | disposition home or self-care (01) ==
LOC: ANHLAB 14:41
PROVIDERS: PCP Family Medicine; Visit Provider Anesthesiology
DX: E11.9 Type 2 diabetes mellitus without complications (principal); Z01.818 Encounter for other preprocedural examination
CPT/HCPCS: 36415; 80048

== ENCOUNTER 2024-02-07 01:49 | Day surgery (SDC) | payer BC, SELFPAY ==
[2024-02-01 12:30] VITALS: BMI 35.0
--- NOTE | 2024-02-01 12:35 | PC.NURSE ---
Report to the Outpatient Waiting Room, entrance under the green pavilion located off [facility], at time _1030_ on date _[id number]_. Planned Procedure Time: _1230_. Time changes happen often and if your time is changed the preop area will call you the afternoon before. - You and your visitor will be asked to self-screen and do not enter if you have any COVID symptoms. - A mask is optional within the hospital at this time. - No food or drink from midnight until time of surgery Take the following medications with a SIP of water the morning of surgery: ____None DO NOT STOP ANY OF YOUR OTHER PRESCRIPTION MEDICATIONS PRIOR TO SURGERY ?EXCEPT THE FOLLOWING Medications to discontinue per physician None Please no make-up, nail tajik, hairspray, perfume, deodorant, or body powder the day of surgery. No jewelry (including any body piercings) or valuables the day of surgery, leave them at home. Please take a shower or bath the night before, or the morning of, surgery with an antibacterial soap. Wear comfortable, loose fitting clothing. - Jewelry must be removed prior to entering the operating room. Rings and piercings that are not removed may be cut off. - The hospital will not accept responsibility for valuables. - Please leave all valuables, including medications, at home the day of surgery. If you are going home after surgery, a licensed crew car driver must drive you home. - NO public transportation without another adult if you receive anesthesia. - We recommend that an adult stay with you for 24 hours following discharge. - We also recommend that you do not drive, make important decision, drink alcoholic beverages, or take any drugs that were not prescribed by your health care provider for at least 24 hours after your discharge time. Follow any additional instructions given to you from your surgeon. If you or anyone in your household have experienced Covid symptoms in the past week, please notify your surgeon or the nurse liaison at the phone number below for possible testing. Telephone instructions given to __Lea___and asked if any additional questions and then verbalized understanding. Patient advised to call surgeon office or pre surgery nurse liaison [phone] if any additional questions.
[2024-02-07] VITALS (8 sets, daily range): BP systolic 119–155; BP diastolic 61–82; PULSE 58–80; RESP 13–20; TEMP 36–36.1; O2SAT 97–100
--- NOTE | ~2024-02-07 | XR_ITS ---
EXAMINATION: XR fluoroscopy no charge DATE: 02/07/2024 12:05 INDICATION: Left L3, L4 and L5 radiofrequency ablation TECHNIQUE: 5 fluoroscopic images of the lumbar spine were obtained during procedure performed by Dr. Montano. Radiologist was not present for the imaging or procedure. The amount of fluoroscopy time used d uring this procedure was 0.9 minutes. COMPARISON: None. FINDINGS/IMPRESSION: Images demonstrate needles advanced to the region of the junction of the transverse processes and sup erior articular processes of L3-L5. This is reportedly on the left however markers indicating the rosario e are not included on the provided images. See procedure note for further detail. Reviewed, dictated and finalized at location A.
[2024-02-07] MEDS: LACTATED RINGERS 1,000 ML 30 ML IV CONT ×3 (09:05→13:03)
[2024-02-07 09:07] LABS: Glucose Point of Care 103 mg/dl (65-105)
--- NOTE | 2024-02-07 09:57 | WPDANESEPPF ---
Anes - Initial Pre Proc Eval Procedure: Operation Date: 02/07/24 10:30 Proposed Procedures p Left L3, L4, L5, Medial Branch/Dorsal Ramus Thermal Radiofrequency Ablation under Fluoroscopic Guidance - Arcenio Montano MD Date/Time: 02/07/24 09:57 Surgeon: Arcenio Montano MD Pre Op Diagnosis: Lumbar spinal stenosis Patient Data Age: 63 Gender: F Height: 1.73 m Weight: 99.1 kg Last Vital Signs Temp 96.9 F L 02/07/24 08:41 Pulse 68 02/07/24 08:41 Resp 18 02/07/24 08:41 BP 145/82 H 02/07/24 08:41 Pulse Ox 99 02/07/24 08:41 O2 Del Method Room Air 02/07/24 08:41 Allergies Allergy/AdvReac Type Severity Reaction Status Date / Time lisinopril AdvReac Intermediate Cough Verified 02/07/24 08:50 losartan AdvReac Intermediate tachycardia Verified 02/07/24 08:50 Home Medications Medication Instructions Recorded Confirmed Type naproxen sodium 220 mg tablet 220 mg PO Q12H PRN Pain, Mild 03/09/23 02/07/24 History (Aleve) omeprazole 20 mg capsule,delayed See Rx Instructions .Route 07/05/23 02/07/24 Rx release .COMPLEX #90 caps triamcinolone acetonide 0.5 % 1 applic topical DAILY #15 grams 11/28/23 02/07/24 Rx topical ointment rosuvastatin 10 mg tablet (Crestor) 10 mg PO DAILY #90 tabs 12/13/23 02/07/24 Rx glimepiride 1 mg tablet 1 mg PO QAM #30 tabs 12/28/23 02/07/24 Rx tirzepatide 10 mg/0.5 mL 10 mg (0.5 mL) subcut WEEKLY #2 mL 01/24/24 02/07/24 Rx subcutaneous pen injector (Mounjaro) Laboratory Tests 02/07/24 09:04 POC Capillary Glucose 103 mg/dl (65-105) Patient hx anesthesia problems: none Family hx anesthesia problems: none Results Review: All pre-operative results and documents have been reviewed as part of the pre-operative evaluation. [facility] Past Medical History Medical History Anxiety Arthritis COPD (chronic obstructive pulmonary disease) COVID Depression with anxiety Deviated septum Diabetes mellitus Facet arthritis of lumbar region Family history of lung cancer Fracture of right ankle GERD (gastroesophageal reflux disease) History of rectal polyps History of tobacco abuse Hypertension Paresthesia of foot Person under investigation for COVID-19 Tear of meniscus of left knee Tobacco abuse Visual disturbance Surgical History Surgical History H/O cardiac catheterization H/O colonoscopy H/O oophorectomy H/O tubal ligation H/O: hysterectomy History of arthroplasty of right ankle History of repair of right rotator cuff History of salpingectomy Family History Family History Grandparent Hypertension Diabetes mellitus Father Family history of lung cancer Diabetes mellitus Mother Brain aneurysm Diabetes mellitus Sibling Brain aneurysm Diabetes mellitus Other Family history of cardiovascular disease Social History Social History Smoking packs per day: 1 Smoking cigarettes per day: 20.0 Years smoked: 10 Smoking pack-years: 10.00 Smoking status: Former smoker Tobacco type: cigarettes Second hand tobacco smoke exposure: No Smoking end date: 01/31/18 Additional smoking assessment comments: WAS A FORMER SMOKER IN PAST, restarted and quit again. Alcohol intake: never Substance use: never Substance use type: does not use Living arrangements: with family Occupation/Education: occupation Additional occupation/education comments: [employer] Gender identity (if verbalized by the patient): Female Spiritual care concerns: No Anes - Eval Final PreProcedure Day of Procedure 02/07/24 09:57 Patient weight: obese Heart: regular rate and rhythm Lungs: clear to auscultation Airway: Mallampati scale class II Neurological: alert and orient
--- NOTE | 2024-02-07 10:10 | PM.HPGS ---
History of Present Illness History of Present Illness Consent: Risks, benefits, and alternatives have been discussed and questions answered. Patient agrees to proceed with procedure. Chief complaint: Lumbar spinal stenosis Narrative: Lea Marcial is a 63 year old female with chronic, recalcitrant and disabling left lumbosacral back pain secondary to degenerative spondylosis with failure to respond to aggressive conservative measures including PT, oral and topical analgesics, opioid and nonopioid analgesics, rest, time and activity/behavioral modification over the past 1-2 years who presents for thermal RF ablation of the left L3, L4, L5 medial branches/dorsal ramus addressing the left L4-5, L5-S1 facet joints under fluoroscopic guidance. Review of Systems Review of Systems: Patient denies any new infectious, allergic, cardiopulmonary, neurologic or constitutional symptoms or changes in activity tolerance or exercise capacity including new or progressive SOB/OLIVIER, peripheral edema, productive cough, dysuria, nausea/vomiting, diarrhea, weight change, fevers/chills/night sweats, new or progressive neurologic deficit, cognitive or mood changes since last seen, except as documented in the HPI. All systems reviewed & are unremarkable except as noted in HPI and below PMFSH Past Medical History Medical History Anxiety Arthritis COPD (chronic obstructive pulmonary disease) COVID Depression with anxiety Deviated septum Diabetes mellitus Facet arthritis of lumbar region Family history of lung cancer Fracture of right ankle GERD (gastroesophageal reflux disease) History of rectal polyps History of tobacco abuse Hypertension Paresthesia of foot Person under investigation for COVID-19 Tear of meniscus of left knee Tobacco abuse Visual disturbance Surgical History Surgical History H/O cardiac catheterization H/O colonoscopy H/O oophorectomy H/O tubal ligation H/O: hysterectomy History of arthroplasty of right ankle History of repair of right rotator cuff History of salpingectomy Family History Family History Grandparent Hypertension Diabetes mellitus Father Family history of lung cancer Diabetes mellitus Mother Brain aneurysm Diabetes mellitus Sibling Brain aneurysm Diabetes mellitus Other Family history of cardiovascular disease Social History Social History Smoking packs per day: 1 Smoking cigarettes per day: 20.0 Years smoked: 10 Smoking pack-years: 10.00 Smoking status: Former smoker Tobacco type: cigarettes Second hand tobacco smoke exposure: No Smoking end date: 01/31/18 Additional smoking assessment comments: WAS A FORMER SMOKER IN PAST, restarted and quit again. Alcohol intake: never Substance use: never Substance use type: does not use Living arrangements: with family Occupation/Education: occupation Additional occupation/education comments: [employer] Gender identity (if verbalized by the patient): Female Spiritual care concerns: No Meds Home Medications and Allergies Home Medications Medication Instructions Recorded Confirmed Type naproxen sodium 220 mg tablet 220 mg PO Q12H PRN Pain, Mild 03/09/23 02/07/24 History (Aleve) omeprazole 20 mg capsule,delayed See Rx Instructions .Route 07/05/23 02/07/24 Rx release .COMPLEX #90 caps triamcinolone acetonide 0.5 % 1 applic topical DAILY #15 grams 11/28/23 02/07/24 Rx topical ointment rosuvastatin 10 mg tablet (Crestor) 10 mg PO DAILY #90 tabs 12/13/23 02/07/24 Rx glimepiride 1 mg tablet 1 mg PO QAM #30 tabs 12/28/23 02/07/24 Rx tirzepatide 10 mg/0.5 mL 10 mg (0.5 mL) subcut WEEKLY #2 mL 01/24/24 02/07/24 Rx subcutaneous pen injector (
--- NOTE | 2024-02-07 10:14 | WPDHPUPDATE1 ---
History and Physical Update Update Date/Time: 02/07/24 10:14 History and Physical has been reviewed, including an updated exam of the patient. There are NO changes in the patient's condition. Risks, benefits, and alternatives have been discussed and questions answered. Patient agrees to proceed with procedure.
--- NOTE | 2024-02-07 10:15 | W.PM.PROC2 ---
Procedure Note - Detailed Date of Procedure 02/07/24 Pre-op Diagnosis Lumbosacral spondylosis, chronic low back pain Post-op Diagnosis Same Procedure Performed Thermal Radiofrequency Ablation of the Left Lumbar Medial Branches/Dorsal Ramus at L3, L4, L5 Levels Treating the Ipsilateral L4-5, L5-S1 Facet Joints Under Fluoroscopic Guidance (2 Levels Treated). Surgeon Arcenio Montano MD Anesthesia Local Description of Procedure INFORMED CONSENT: Risks, benefits and alternatives to the procedure were discussed in detail with the patient who expressed explicit understanding and consent to proceed. Patient was informed verbally and in written form regarding the risks associated with the procedure including the low risk of serious infection, bleeding/bruising, allergic reaction, nerve or organ injury, paralysis, procedural site pain or discomfort, worsening pain and/or mobility, failure to treat and/or disfigurement. The patient expressed explicit understanding and consent to proceed. All materials required for the procedure were available prior to procedure start. Site and side were marked prior to procedure and confirmed in the presence of the patient. PROCEDURE IN DETAIL: The patient was brought to the procedural suite and placed in the prone position. Patient was made comfortable with use of pillows under the head/chest, hips and ankles. Skin overlying the injection site on the affected side(s) was prepared broadly with ChloraPrep applicator and draped in a sterile manner. Aseptic technique was used throughout. The endplates of the vertebral bodies at the site(s) of interest were aligned in the AP view. Ipsilateral oblique angulation was utilized to optimize visualization of the intersection between the superior articulating process and transverse process at each target site. Local anesthesia was established by infiltration with approximately 5 mL of 1% lidocaine via a 1-1/2 inch 27-gauge needle. An 16-gauge 100mm Dr. Scribblesian RF needle with curved 10mm active tip was advanced in the AP view until the needle tip contacted the periosteum at the target site, left L3 medial branch. Lateral view was utilized to adjust and confirm the appropriate placement of the needle tip just anterior to the facet line, superior to the pedicle and posterior to the foramen. The appropriately-sized RF cannula was inserted into the RF needle and motor stimulation performed with no subjective or objective evidence of recruited muscle activity with stimulation up to 3.0 volts at a frequency of 2Hz. 1.0 mL of 2.0% PF lidocaine was injected after negative aspiration. Grounding electrode in place and functioning. After a 90s pause, lesioning was performed to 90 degrees centigrade for 90s ensuring lack of symptoms in the extremity throughout. Needle was rotated 180 degrees and lesioning repeated in a similar manner. Patient tolerated this well. No parasthesias were elicited. Needle was removed completely intact without difficulty. The same procedure was repeated for all intended levels/ structures on the ipsilateral side, left L4, L5 medial branch/dorsal ramus with identical methodology, modified to compensate for new location, with similar results and no evidence of complication. Images were saved and documented in the patient chart. Patient's skin was cleansed and sterile bandage applied. The patient tolerated the procedure well. The patient was transported to the recovery area in stable condition where they were observed for an appropriate amount of time prior to discharge, without evidence of complication. The patient was instructed to avoid excessive activity for the next 48 hours, including climbing and frequent use of stairs. Showers only for 48 hours. They were instructed not to drive or operate heavy machinery for 24 hours. They are to monitor for severe headaches, fevers, chills, night sweats, erythema/swelling at the site or any other signs of infection, bleeding/bruising, bowel or
[2024-02-07] MEDS: LIDOCAINE HCL 2% PF INJ 5 ML VIAL INFILTRATE (10:55)
[2024-02-07] MEDS: BUPivacaine HCL 0.5% PF 30 ML VIAL 5 ML INFILTRATE (11:15)
[2024-02-07 12:34] LABS: Glucose Point of Care 89 mg/dl (65-105)
== END 2024-02-07 13:50 | disposition home or self-care (01) ==
PROVIDERS: PCP Family Medicine; Visit Provider Anesthesiology Pain Medicine
PROC: (CPT 64635; principal; 2024-02-07 10:30)
DX: M48.061 Spinal stenosis, lumbar region without neurogenic claudication (principal); M47.817 Spondylosis without myelopathy or radiculopathy, lumbosacral region; G89.29 Other chronic pain; I10 Essential (primary) hypertension; E11.9 Type 2 diabetes mellitus without complications; J44.9 Chronic obstructive pulmonary disease, unspecified; F41.8 Other specified anxiety disorders; K21.9 Gastro-esophageal reflux disease without esophagitis; E66.9 Obesity, unspecified; Z68.33 Body mass index [BMI] 33.0-33.9, adult; Z79.1 Long term (current) use of non-steroidal anti-inflammatories (NSAID); Z79.84 Long term (current) use of oral hypoglycemic drugs; Z79.85 Long-term (current) use of injectable non-insulin antidiabetic drugs; Z98.890 Other specified postprocedural states; Z98.61 Coronary angioplasty status; Z98.51 Tubal ligation status; Z87.891 Personal history of nicotine dependence; Z86.010 Personal history of colon polyps; Z80.1 Family history of malignant neoplasm of trachea, bronchus and lung; Z82.49 Family history of ischemic heart disease and other diseases of the circulatory system
CPT/HCPCS: 64635; 64636; 82948; 99199; J0330; J2250; J2371; J2405; J2704; J3010; J7120

== ENCOUNTER 2024-03-29 10:20 | Outpatient (CLI) | payer BC, SELFPAY ==
[2024-03-29 11:17] LABS: Creatinine Urine 26.3 mg/dL
[2024-03-29 11:22] LABS: MALB Creatinine Ratio < 22.8 mg/g (0-30); Microalbumin Urine Random < 6.0 mg/L (0-16.7)
--- NOTE | 2024-03-29 11:30 | NEURO_ITS ---
Impression: # Insulin dependent diabetic complains of increasing numbness of hands. # Bilateral Carpal Tunnel Syndrome, right more than left. # Bilateral ulnar neuropathy around the elbows. # Needle/EMG exam mildly abnormal. Nerve Conduction Studies Anti Sensory Summary Table Stim Site NR Peak (ms) P-T Amp (?V) Site1 Site2 Delta-P (ms) Dist (cm) Antoine (m/s) Left Median Anti Sensory (2-3nd Digit) Wrist 3.0 35.6 Wrist 2-3nd Digit 3.0 14.0 47 Wrist 3.1 63.1 Wrist 2-3nd Digit 3.0 14.0 47 Right Median Anti Sensory (2-3nd Digit) Wrist 4.1 9.6 Wrist 2-3nd Digit 4.1 14.0 34 Wrist 4.6 24.8 Wrist 2-3nd Digit 4.1 14.0 34 Left Radial Anti Sensory (Base 1st Digit) Wrist 1.9 30.0 Wrist Base 1st Digit 1.9 0.0 Right Radial Anti Sensory (Base 1st Digit) Wrist 2.0 14.1 Wrist Base 1st Digit 2.0 0.0 Left Ulnar Anti Sensory (5th Digit) Wrist 2.4 65.7 Wrist 5th Digit 2.4 14.0 58 Right Ulnar Anti Sensory (5th Digit) Wrist 2.5 61.2 Wrist 5th Digit 2.5 14.0 56 Motor Summary Table Stim Site NR Onset (ms) O-P Amp (mV) Site1 Site2 Delta-0 (ms) Dist (cm) Antoine (m/s) Left Median Motor (Abd Poll Brev) Wrist 4.6 0.8 Elbow Wrist 5.1 28.0 55 Elbow 9.7 2.8 Right Median Motor (Abd Poll Brev) Wrist 5.1 1.7 Elbow Wrist 5.0 28.0 56 Elbow 10.1 2.0 Left Ulnar Motor (Abd Dig Minimi) Wrist 2.9 6.1 A Elbow Wrist 6.3 29.0 46 A Elbow 9.2 4.6 B Elbow Wrist 4.2 24.0 57 B Elbow 7.1 3.7 Right Ulnar Motor (Abd Dig Minimi) Wrist 2.5 6.0 A Elbow Wrist 6.2 29.0 47 A Elbow 8.7 5.4 B Elbow Wrist 4.1 21.0 51 B Elbow 6.6 5.5 F Wave Studies NR F-Lat (ms) L-R F-Lat (ms) Left Median (Mrkrs) (Abd Poll Brev) 30.54 1.54 Right Median (Mrkrs) (Abd Poll Brev) 29.01 1.54 Left Ulnar (Mrkrs) (Abd Dig Min) 30.84 1.74 Right Ulnar (Mrkrs) (Abd Dig Min) 29.10 1.74 EMG Side Muscle Nerve Root Ins Act Fibs Amp Dur Recrt Comment Right 1stDorInt Ulnar C8-T1 Nml Nml Nml >12ms +1 Right Ext Indicis Radial (Post Int) C7-8 Nml Nml Nml Nml Nml Right Ext Digitorum Radial (Post Int) C7-8 Nml Nml Nml Nml Nml Right BrachioRad Radial C5-6 Nml Nml Nml Nml Nml Right PronatorTeres Median C6-7 Nml Nml Nml Nml Nml Right Abd Poll Brev Median C8-T1 Nml Nml Nml >12ms +1 Right ABD Dig Min Ulnar C8-T1 Nml Nml Nml >12ms Nml Left 1stDorInt Ulnar C8-T1 Nml Nml Nml >12ms +1 Left Ext Indicis Radial (Post Int) C7-8 Nml Nml Nml Nml Nml Left Ext Digitorum Radial (Post Int) C7-8 Nml Nml Nml Nml Nml Left BrachioRad Radial C5-6 Nml Nml Nml Nml Nml Left PronatorTeres Median C6-7 Nml Nml Nml Nml Nml Left Abd Poll Brev Median C8-T1 Nml Nml Nml >12ms +1 Left ABD Dig Min Ulnar C8-T1 Nml Nml Nml >12ms Nml MTDD
== END 2024-03-29 10:21 | disposition home or self-care (01) ==
PROVIDERS: PCP Family Medicine; Visit Provider Nurse Practitioner Adult Health
DX: R20.0 Anesthesia of skin (principal); R20.2 Paresthesia of skin; E11.9 Type 2 diabetes mellitus without complications; G56.03 Carpal tunnel syndrome, bilateral upper limbs; G56.23 Lesion of ulnar nerve, bilateral upper limbs
CPT/HCPCS: 82043; 95886; 95911

== ENCOUNTER 2024-05-01 02:10 | Day surgery (SDC) | payer BC, SELFPAY ==
--- NOTE | 2024-04-20 14:41 | SUR.PREOP ---
Addendum entered by Damaris Cruz RN 04/20/24 14:45: pt instructed to have a light lunch. nothing to eat and only sips of water 2 hrs prior to procedure Original Note: Report to the Outpatient Waiting Room, entrance under the green pavilion located off [facility], at time 1445 on date 05/01/24. Planned Procedure Time: 1545.? Time changes happen often and if your time is changed the preop area will call you the afternoon before. - You and your visitor will be asked to self-screen and do not enter if you have any COVID symptoms. Please call surgeon if you need to reschedule. - A mask is optional within the hospital at this time. Patients may have clear liquids (water, carbonated beverages, clear teas, apple juice) until 3 hours prior to surgery with a maximum of 20 ounces. - No food from midnight until time of surgery and no smoking - Infants may have breast milk until 4 hours before surgery, infant formula 6 hours prior to surgery. - Children will be allowed to drink immediately following surgery.? If applicable, please bring a bottle or sippy cup to assist with drinking. Juice, water, soda, and popsicles are readily available.? For infants on formula, please bring formula the day of surgery.? Pacifiers are allowed. Take only the following medications with a SIP of water on the morning of surgery: may take morning medications DO NOT STOP ANY OF YOUR OTHER PRESCRIPTION MEDICATIONS PRIOR TO SURGERY EXCEPT THE FOLLOWING Medications to discontinue per physician n/a Date to take last dose Please no make-up, nail lithuanian, hairspray, perfume, deodorant, or body powder the day of surgery.? No jewelry (including any body piercings) or valuables the day of surgery, leave them at home.? Please take a shower or bath the night before, or the morning of, surgery with an antibacterial soap.? Wear comfortable, loose fitting clothing.? Children are encouraged to wear pajamas. - Jewelry must be removed prior to entering the operating room.? Rings and piercings that are not removed may be cut off. - The hospital will not accept responsibility for valuables.? - Please leave all valuables, including medications, at home the day of surgery. If you are going home after surgery, a licensed dairy truck driver must drive you home.? - NO public transportation without another adult if you receive anesthesia. - We recommend that an adult stay with you for 24 hours following discharge. - We also recommend that you do not drive, make important decision, drink alcoholic beverages, or take any drugs that were not prescribed by your health care provider for at least 24 hours after your discharge time. For Pediatric surgeries, we recommend two adults accompany the child home. Follow any additional instructions given to you from your surgeon. Telephone instructions given to _patient_and asked if any additional questions and then verbalized understanding. Patient advised to call surgeon office or pre surgery nurse liaison [phone] if any additional questions.
--- NOTE | ~2024-05-01 | XR_ITS ---
EXAMINATION: XR fluoroscopy no charge DATE: 05/01/2024 14:57 INDICATION: Left sacroiliac intra-articular steroid injection TECHNIQUE: 5 fluoroscopic images of the left sacroiliac joint were obtained during procedure performe d by Dr. Montano. Radiologist was not present for the imaging or procedure. The amount of fluoroscopy ti me used during this procedure was 0.7 minutes. Total DAP was 3.76 mGycm^2 COMPARISON: None. FINDINGS: Images demonstrate advancement of a needle to the caudal aspect of the left sacroiliac joint. Small a mount of injected contrast extends craniocaudally from the needle tip within the left sacroiliac join t. IMPRESSION: 1. Fluoroscopy utilized during left sacroiliac joint injection. See procedure note for further detail . Reviewed, dictated and finalized at location A. IMPRESSION: 1. Fluoroscopy utilized during left sacroiliac joint injection. See procedure n ote for further detail.
--- NOTE | 2024-05-01 13:26 | PM.HPGS ---
History of Present Illness History of Present Illness Consent: Risks, benefits, and alternatives have been discussed and questions answered. Patient agrees to proceed with procedure. Chief complaint: sacroiliitis, chronic low back pain Narrative: Lea Marcial is a 64 year old female with chronic, recalcitrant and disabling left sacral low back pain secondary to degenerative sacroiliac joint arthropathy with failure to respond to aggressive conservative measures including PT, oral and topical analgesics, opioid and nonopioid analgesics, rest, time and activity/behavioral modification over the past 1-2 years who presents for intra-articular sacroiliac joint steroid injection under fluoroscopic guidance and with contrast control. Review of Systems Review of Systems: Patient denies any new infectious, allergic, cardiopulmonary, neurologic or constitutional symptoms or changes in activity tolerance or exercise capacity including new or progressive SOB/OLIVIER, peripheral edema, productive cough, dysuria, nausea/vomiting, diarrhea, weight change, fevers/chills/night sweats, new or progressive neurologic deficit, cognitive or mood changes since last seen, except as documented in the HPI. All systems reviewed & are unremarkable except as noted in HPI and below PMFSH Past Medical History Medical History Anxiety Arthritis COPD (chronic obstructive pulmonary disease) COVID Depression with anxiety Deviated septum Diabetes mellitus Facet arthritis of lumbar region Family history of lung cancer Fracture of right ankle GERD (gastroesophageal reflux disease) History of rectal polyps History of tobacco abuse Hypertension Numbness and tingling in both hands Paresthesia of foot Person under investigation for COVID-19 Tear of meniscus of left knee Tobacco abuse Visual disturbance Surgical History Surgical History H/O cardiac catheterization H/O colonoscopy H/O oophorectomy H/O tubal ligation H/O: hysterectomy History of arthroplasty of right ankle History of repair of right rotator cuff History of salpingectomy Family History Family History Grandparent Hypertension Diabetes mellitus Father Family history of lung cancer Diabetes mellitus Mother Brain aneurysm Diabetes mellitus Sibling Brain aneurysm Diabetes mellitus Other Family history of cardiovascular disease Social History Social History Smoking packs per day: 1 Smoking cigarettes per day: 20.0 Years smoked: 10 Smoking pack-years: 10.00 Smoking status: Unknown if ever smoked Tobacco type: cigarettes Second hand tobacco smoke exposure: No Smoking end date: 01/31/18 Additional smoking assessment comments: WAS A FORMER SMOKER IN PAST, restarted and quit again. Alcohol intake: never Substance use: never Substance use type: does not use Do You Feel Safe in your Home?: Yes Lack of Transportation: No Lack of Food: Never True Current Housing: I Have Housing Concerned About Future Housing: No Difficulty Paying Gas/Electric Bills: No Difficulty Paying for Meds: No Currently Unemployed: YES Education: High School Diploma/GED Difficulty w/ Childcare or Family Care: No Living arrangements: with family Occupation/Education: occupation Additional occupation/education comments: [employer] Gender identity (if verbalized by the patient): Female Spiritual care concerns: No Meds Home Medications and Allergies Home Medications Medication Instructions Recorded Confirmed Type rosuvastatin 10 mg tablet (Crestor) 10 mg PO DAILY #90 tabs 12/13/23 04/20/24 Rx omeprazole 20 mg capsule,delayed 20 mg PO DAILY PRN reflux 04/20/24 04/20/24 History release tirzepatide 10
--- NOTE | 2024-05-01 13:29 | WPDHPUPDATE1 ---
History and Physical Update Update Date/Time: 05/01/24 13:29 History and Physical has been reviewed, including an updated exam of the patient. There are NO changes in the patient's condition. Risks, benefits, and alternatives have been discussed and questions answered. Patient agrees to proceed with procedure.
--- NOTE | 2024-05-01 13:30 | W.PM.PROC2 ---
Procedure Note - Detailed Date of Procedure 05/01/24 Pre-op Diagnosis sacroiliitis, chronic low back pain Post-op Diagnosis Same Procedure Performed [Right] Sacroiliac Joint Steroid Injection under Fluoroscopic Guidance and with Contrast Control. Surgeon Arcenio Montano MD Fire Investigator None Anesthesia Local Description of Procedure INFORMED CONSENT: Risks, benefits and alternatives to the procedure were discussed in detail with the patient who expressed explicit understanding and consent to proceed. Patient was informed verbally and in written form regarding the risks associated with the procedure including the low risk of serious infection, bleeding/bruising, allergic reaction, nerve or organ injury, paralysis, procedural site pain or discomfort, worsening pain and/or mobility, failure to treat and/or disfigurement. The patient expressed explicit understanding and consent to proceed. All materials required for the procedure were available prior to procedure start. Site and side were marked prior to procedure and confirmed in the presence of the patient. PROCEDURE IN DETAIL: The patient was brought to the procedural suite and placed in the prone position. Patient was made comfortable with use of pillows under the head/chest, hips and ankles. Skin overlying the injection site on the affected side(s) was prepared broadly with ChloraPrep applicator and draped in a sterile manner. Aseptic technique was used throughout. The Left SI joint was identified in the AP view and contralateral oblique angulation with caudal tilt was utilized to optimize visualization of the inferior and medial joint line representing the posterior portion of the joint. Local anesthesia was established by infiltration with approximately 5 mL of 2% lidocaine via a 1-1/2 inch 27-gauge needle. A 22-gauge 3.5 inch Quincke spinal needle was advanced until the needle entered the inferior third of the joint space approximately 1cm cephalad from its most inferior point. In the AP view, 0.5 mL of Omnipaque 300 contrast medium was injected after negative aspiration for CSF, blood or other bodily fluid, showing appropriate intra-articular spread of contrast without evidence of intravascular, perineural or intrathecal placement. A 1.5 mL solution containing 6 mg of betamethasone in 0.5% PF bupivacaine was injected after repeat negative aspiration. Appropriate spread of the injectate was confirmed with washout of previous injected contrast. No parasthesias were elicited. Needle was removed completely intact without difficulty. Images were saved and documented in the patient chart. Patient's skin was cleansed and sterile bandage applied. The patient tolerated the procedure well. The patient was transported to the recovery area in stable condition where they were observed for an appropriate amount of time prior to discharge, without evidence of complication. The patient was instructed to avoid excessive activity for the next 48 hours, including climbing and frequent use of stairs. Showers only for 48 hours. They were instructed not to drive or operate heavy machinery for 24 hours. They are to monitor for severe headaches, fevers, chills, night sweats, erythema/swelling at the site or any other signs of infection, bleeding/bruising, bowel or bladder changes as well as new pain, weakness or numbness in the upper or lower extremity. Should they notice these changes, they are instructed to call our office immediately or report directly to the nearest Emergency Department if no answer or if after posted office hours. COMPLICATIONS: None COMMENTS: None CONTRAST WASTED: 29.5mL Omnipaque 300. Complications No immediate complications Condition Stable Disposition Same day [facility] Billing Surgery - Charge Forward: Surgery Billing
[2024-05-01 13:55] VITALS: BP 143/76; PULSE 63; RESP 14; TEMP 36.1; O2SAT 100; BMI 31.8
[2024-05-01 14:15] VITALS: BP 144/77; PULSE 67; RESP 16; O2SAT 96
[2024-05-01 14:20] VITALS: BP 149/82; PULSE 67; RESP 16; O2SAT 96
[2024-05-01 14:27] VITALS: BP 127/57; PULSE 64; RESP 16; O2SAT 98
[2024-05-01] MEDS: BUPivacaine HCL 0.5% PF 30 ML VIAL INFILTRATE (14:27)
[2024-05-01] MEDS: BETAMETHASONE SODIUM PHOSPHATE PF INJ 6 MG/ML VIAL INFILTRATE (14:28)
== END 2024-05-01 14:42 | disposition home or self-care (01) ==
PROVIDERS: PCP Family Medicine; Visit Provider Anesthesiology Pain Medicine
PROC: (CPT 64451; principal; 2024-05-01 14:15)
DX: M46.1 Sacroiliitis, not elsewhere classified (principal); E11.9 Type 2 diabetes mellitus without complications; K21.9 Gastro-esophageal reflux disease without esophagitis; I10 Essential (primary) hypertension; J44.9 Chronic obstructive pulmonary disease, unspecified; G89.29 Other chronic pain; M54.50 Low back pain, unspecified; F41.8 Other specified anxiety disorders; M47.896 Other spondylosis, lumbar region; Z79.85 Long-term (current) use of injectable non-insulin antidiabetic drugs; Z79.84 Long term (current) use of oral hypoglycemic drugs; Z98.890 Other specified postprocedural states; Z98.51 Tubal ligation status; Z87.891 Personal history of nicotine dependence; Z86.0100 Personal history of colon polyps, unspecified; Z80.1 Family history of malignant neoplasm of trachea, bronchus and lung; Z82.49 Family history of ischemic heart disease and other diseases of the circulatory system
CPT/HCPCS: 64451; 99199; Q9965

== ENCOUNTER 2024-06-19 14:33 | Outpatient (CLI) | payer BC, SELFPAY ==
--- NOTE | 2024-06-19 15:11 | ECG_ITS ---
Test Date: 2024-06-19 15:24:26 Measurements Intervals [place] Rate: 62 P: 60 [place]: 158 QRS: -2 QRSD: 117 T: 28 QT: 431 QTc: 439 Interpretive Statements SINUS RHYTHM MODERATE INTRAVENTRICULAR CONDUCTION DELAY [110+ ms QRS DURATION] NONSPECIFIC ST AND T-WAVE ABNORMALITY No previous ECG available for comparison Electronically Signed On 06-20-2024 14:46:07 ASSISTANT PROFESSOR OF GEOGRAPHY by Jordan Youssef M.D.
[2024-06-19 15:19] LABS: Anion Gap 6 mmol/L (4-12); Blood Urea Nitrogen 15 mg/dL (7-17); Carbon Dioxide 27 mmol/L (22-30); Chloride 106 mmol/L (98-107); Estimated Glomerular Filt Rate > 60; Glucose 139 mg/dL (65-110); Potassium 3.7 mmol/L (3.4-5.0); Sodium 139 mmol/L (137-145)
== END 2024-06-19 14:34 | disposition home or self-care (01) ==
PROVIDERS: PCP Family Medicine; Visit Provider Anesthesiology
DX: E11.9 Type 2 diabetes mellitus without complications (principal)
CPT/HCPCS: 36415; 80048; 93005

== ENCOUNTER 2024-06-22 01:56 | Day surgery (SDC) | payer BC, SELFPAY ==
[2024-06-16 08:54] VITALS: BMI 30.4
--- NOTE | 2024-06-16 08:59 | PC.NURSE ---
Report to the Outpatient Waiting Room, entrance under the green pavilion located off [facility], at time _0800_ on date _[id number]_. Planned Procedure Time: _1000_.? Time changes happen often and if your time is changed the preop area will call you the afternoon before. - You and your visitor will be asked to self-screen and do not enter if you have any COVID symptoms. Please call surgeon if you need to reschedule. - A mask is optional within the hospital at this time. Patients may have clear liquids (water, carbonated beverages, clear teas, apple juice) until 3 hours prior to surgery with a maximum of 20 ounces. - No food from midnight until time of surgery and no smoking. This includes no chewing gum, candy or mints. Take only the following medications with a SIP of water on the morning of surgery: __None__ DO NOT STOP ANY OF YOUR OTHER PRESCRIPTION MEDICATIONS PRIOR TO SURGERY EXCEPT THE FOLLOWING Medications to discontinue per physician None Please no make-up, nail bahraini, hairspray, perfume, deodorant, or body powder the day of surgery.? No jewelry (including any body piercings) or valuables the day of surgery, leave them at home.? Please take a shower or bath the night before, or the morning of, surgery with an antibacterial soap.? Wear comfortable, loose fitting clothing. - Jewelry must be removed prior to entering the operating room.? Rings and piercings that are not removed may be cut off. - The hospital will not accept responsibility for valuables.? - Please leave all valuables, including medications, at home the day of surgery. If you are going home after surgery, a licensed farm truck driver must drive you home.? - NO public transportation without another adult if you receive anesthesia. - We recommend that an adult stay with you for 24 hours following discharge. - We also recommend that you do not drive, make important decision, drink alcoholic beverages, or take any drugs that were not prescribed by your health care provider for at least 24 hours after your discharge time. Follow any additional instructions given to you from your surgeon. Telephone instructions given to _Lea_and asked if any additional questions and then verbalized understanding. Patient advised to call surgeon office or pre surgery nurse liaison [phone] if any additional questions.
[2024-06-22] VITALS (8 sets, daily range): BP systolic 120–135; BP diastolic 58–86; PULSE 61–68; RESP 14–20; TEMP 36.4; O2SAT 92–100
--- NOTE | 2024-06-22 08:44 | WPDHPUPDATE1 ---
History and Physical Update Update Date/Time: 06/22/24 08:44 History and Physical has been reviewed, including an updated exam of the patient. There are NO changes in the patient's condition. Risks, benefits, and alternatives have been discussed and questions answered. Patient agrees to proceed with procedure.
[2024-06-22] MEDS: ACETAMINOPHEN 500 MG TABLET 1000 MG PO (09:15)
[2024-06-22] MEDS: LACTATED RINGERS 1,000 ML 30 ML IV CONT (09:20)
[2024-06-22] MEDS: KETOROLAC 15 MG/ML VIAL (*BKC) IV PUSH (09:25)
[2024-06-22 09:45] LABS: Glucose Point of Care 89 mg/dl (65-105)
--- NOTE | 2024-06-22 11:12 | WPDANESEPPF ---
Anes - Initial Pre Proc Eval Procedure: Operation Date: 06/22/24 11:00 Proposed Procedures p Right Carpal and Cubital Tunnel Release - Chuck Obrien MD Date/Time: 06/22/24 11:12 Surgeon: Chuck Obrien MD Pre Op Diagnosis: Right Carpal and Cubital Tunnel Syndrome Patient Data Age: 64 Gender: F Height: 1.73 m Weight: 92.4 kg Last Vital Signs Temp 97.6 F 06/22/24 09:00 Pulse 65 06/22/24 09:00 Resp 18 06/22/24 09:00 BP 135/69 06/22/24 09:00 Pulse Ox 100 06/22/24 09:00 O2 Del Method Room Air 06/22/24 09:00 Allergies Allergy/AdvReac Type Severity Reaction Status Date / Time lisinopril AdvReac Intermediate Cough Verified 06/22/24 10:17 losartan AdvReac Intermediate tachycardia Verified 06/22/24 10:17 Home Medications ?Medication ?Instructions ?Recorded ?Confirmed ?Type omeprazole 20 mg capsule,delayed 20 mg PO DAILY PRN reflux 04/20/24 06/16/24 History release rosuvastatin 10 mg tablet (Crestor) 10 mg PO DAILY #90 tabs 05/28/24 06/16/24 Rx tirzepatide 12.5 mg/0.5 mL 12.5 mg (0.5 mL) subcut WEEKLY #4 06/02/24 06/16/24 Rx subcutaneous pen injector mL Laboratory Tests 06/22/24 09:22 POC Capillary Glucose 89 mg/dl (65-105) Patient hx anesthesia problems: none Family hx anesthesia problems: none Results Review: All pre-operative results and documents have been reviewed as part of the pre-operative evaluation. [facility] Past Medical History Medical History Cubital tunnel syndrome on left Cubital tunnel syndrome on right Left carpal tunnel syndrome Right carpal tunnel syndrome Cubital tunnel syndrome, bilateral Bilateral carpal tunnel syndrome Numbness and tingling in both hands Visual disturbance Facet arthritis of lumbar region COVID Person under investigation for COVID-19 Depression with anxiety Paresthesia of foot Tobacco abuse Family history of lung cancer History of tobacco abuse COPD (chronic obstructive pulmonary disease) Hypertension Anxiety Diabetes mellitus Fracture of right ankle Arthritis Tear of meniscus of left knee GERD (gastroesophageal reflux disease) History of rectal polyps Deviated septum Surgical History Surgical History History of arthroplasty of right ankle History of repair of right rotator cuff H/O oophorectomy History of salpingectomy H/O: hysterectomy H/O tubal ligation H/O colonoscopy H/O cardiac catheterization Family History Family History Grandparent Hypertension Diabetes mellitus Father Family history of lung cancer Diabetes mellitus Mother Brain aneurysm Diabetes mellitus Sibling Brain aneurysm Diabetes mellitus Other Family history of cardiovascular disease Social History Social History Smoking packs per day: 1 Smoking cigarettes per day: 20.0 Years smoked: 5 Smoking pack-years: 5.00 Smoking status: Former smoker Tobacco type: cigarettes Second hand tobacco smoke exposure: No Smoking end date: 01/31/18 Additional smoking assessment comments: quit a long time ago. Alcohol intake: never Substance use: never Substance use type: does not use Do You Feel Safe in your Home?: Yes Lack of Transportation: No Lack of Food: Never True Current Housing: I Have Housing Concerned About Future Housing: No Difficulty Paying Gas/Electric Bills: No Difficulty Paying for Meds: No Currently Unemployed: YES Education: High School Diploma/GED Difficulty w/ Childcare or Family Care: No Living arrangements: with family Occupation/Education: occupation Additional occupation/education comments: [employer] Gender identity (if verbalized by the patient): Female Spiritual care concerns: No Anes - Eval Final PreProcedure Day of Procedure 06/22/24 11:12 Patient weight: obese Heart: regular rate and rhythm Lungs: clear to auscultation Airway: Mallampati scale and special considerations (Upper dentures. ) Neurological: alert and oriented Last oral intake: >/= 8 hours ASA classification: III Emergent: no Anesthetic plan: proceed Anesthesia type and monitoring: general LMA and standard monitoring Results Review: All pre-operative results and documents have been reviewed as part of the pre-operative evaluation. DM fsbs 89. 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 Hyperlipidemia. Pt active working in [employer], no cp or sob w walking longer distances. Informed Consent: The patient's anesthetic plan and its attendant risks and benefits were discussed with the patient/family/POA. Questions were solicited and answers provided to the satisfaction of the patient/family/POA.
[2024-06-22] MEDS: ceFAZolin 2 GM/D5W 50 ML 2 GM/50 ML BAG IVPB (11:39)
[2024-06-22] MEDS: BUPIVACAINE/EPINEPHRINE 0.5% 30 ML VIAL INFILTRATE (12:01)
--- NOTE | 2024-06-22 12:48 | P.OP_ITS ---
Procedure Note - Detailed Date of Procedure 06/22/24 Pre-op Diagnosis Right Carpal and Cubital Tunnel Syndrome Post-op Diagnosis Same Procedure Performed right cubital tunnel release, Right carpal tunnel release. Surgeon Chuck Obrien MD Director Of Customer Service junior assistant manager Anesthesia General Indications The patient has history, exam findings, and electrodiagnostic findings consistent with carpal tunnel syndrome and cubital tunnel syndrome. Conservative treatment with bracing/ splinting, activity modifications, medication, ergonomics, injections has failed. Symptoms are daily and affect ability to use hand. The patient desires operative treatment. Description of Procedure After informed consent was given, the operative extremity was marked in the preoperative holding area. Intravenous antibiotics were given. The patient was taken to the operating room and underwent conscious sedation by the anesthesia team. A time-out was performed confirming patient, procedure, and operative site. Local infiltrate at the carpal tunnel was done with 0.5% marcaine. Prepping and draping was done using chloraprep skin solution with usual surgical sterile technique. Anatomic landmarks marked on skin. Hand was exsanguinated and arm tourniquet inflated to 225mmHg. elbow was addressed 1st. 15 blade knife used to make an oblique incision over the cubital tunnel on the medial aspect of the elbow. Hemostasis controlled with electrocautery. Dissection carried down to the fascia which was incised in line with the skin incision. Deep fascia from the medial epicondyle was then identified and using a [place] elevator to protect the ulnar nerve the retinaculum was released proximally and the nerve was visualized. The retinaculum was then released from proximal to distal under direct visualization protecting the nerve. The retinaculum was noted to be compressive on the nerve. The nerve itself was otherwise intact. After release of the nerve the elbow was taken through range of motion and the nerve was noted to be stable. Wound irrigated with saline and subcutaneous tissue closed with 3-0 Monocryl interrupted suture. Skin repaired with 3-0 Monocryl running subcuticular stitch and Steri-Strips. The wrist was then addressed. Incision was made with #15 blade knife in skin crease on volar palm. Hemostasis was achieved with electrocautery. Careful dissection was carried down to the transverse carpal ligament. Retractors were placed. Ligament overlying median nerve was incised in line with skin incision using [place] blade. Proximal and distal release was done with metzenbaum scissors under direct visualization. Mosquito clamp was placed deep to ligament to protect nerve during release. The nerve was inspected and noted to be intact with mild flattening. Tendons had good excursion. The tourniquet was then released and pressure held. Bleeding points were coagulated with bipolar cautery. The wound was thoroughly irrigated with saline. The skin was closed with 4-0 nylon interrupted suture. A sterile dressing was applied. Good capillary refill in the fingers and thumb was noted. The patient was transported to the recovery room in stable condition. All sponge, needle, instrument counts were correct at the end of the case. Implants none Estimated Blood Loss 2 Tourniquet Time Total Tourniquet Time: 42 Drains No Packing No Pathology None sent Complications None Condition Stable Disposition PACU [facility] Billing Surgery - Charge Forward: Surgery Billing ([id number], [id number])
[2024-06-22 13:05] LABS: Glucose Point of Care 82 mg/dl (65-105)
--- NOTE | 2024-06-22 13:09 | SUR.PHASEI ---
1305: Simple mask removed.
== END 2024-06-22 14:20 | disposition home or self-care (01) ==
PROVIDERS: PCP Family Medicine; Visit Provider Orthopaedic Surgery
PROC: (CPT 64721; principal; 2024-06-22 11:00)
DX: G56.01 Carpal tunnel syndrome, right upper limb (principal); G56.21 Lesion of ulnar nerve, right upper limb; E11.9 Type 2 diabetes mellitus without complications; Z79.85 Long-term (current) use of injectable non-insulin antidiabetic drugs; Z87.891 Personal history of nicotine dependence; E66.9 Obesity, unspecified; Z68.31 Body mass index [BMI] 31.0-31.9, adult
CPT/HCPCS: 64721; 64718; 82948; A9270; J0690; J1885; J2003; J2250; J2405; J2704; J3010; J7120

== ENCOUNTER 2024-08-03 01:22 | Day surgery (SDC) | payer BC, SELFPAY ==
--- NOTE | 2024-07-26 13:52 | PC.NURSE ---
Report to the Outpatient Waiting Room, entrance under the green pavilion located off [facility], at time 0600 on date 08/03/24. Planned Procedure Time: 0730.? Time changes happen often and if your time is changed the preop area will call you the afternoon before. - You and your visitor will be asked to self-screen and do not enter if you have any COVID symptoms. Please call surgeon if you need to reschedule. - A mask is optional within the hospital at this time. Patients may have clear liquids (water, carbonated beverages, clear teas, apple juice) until 3 hours prior to surgery with a maximum of 20 ounces. 0430 - No food from midnight until time of surgery and no smoking. This includes no chewing gum, candy or mints. - Infants may have breast milk until 4 hours before surgery, formula 6 hours prior to surgery. - Children will be allowed to drink immediately following surgery.? If applicable, please bring a bottle or sippy cup to assist with drinking. Juice, water, soda, and popsicles are readily available.? For infants on formula, please bring formula the day of surgery.? Pacifiers are allowed. Take only the following medications with a SIP of water on the morning of surgery: None DO NOT STOP ANY OF YOUR OTHER PRESCRIPTION MEDICATIONS PRIOR TO SURGERY EXCEPT THE FOLLOWING Medications to discontinue per physician Aly Sepulveda (last dose taken was 07/26/24) Date to take last dose Crestor 08/02/24, Aly 07/26/24 Please no make-up, nail swiss, hairspray, perfume, deodorant, or body powder the day of surgery.? No jewelry (including any body piercings) or valuables the day of surgery, leave them at home.? Please take a shower or bath the night before, or the morning of, surgery with an antibacterial soap.? Wear comfortable, loose fitting clothing.? Children are encouraged to wear pajamas. - Jewelry must be removed prior to entering the operating room.? Rings and piercings that are not removed may be cut off. - The hospital will not accept responsibility for valuables.? - Please leave all valuables, including medications, at home the day of surgery. If you are going home after surgery, a licensed tractor driver must drive you home.? - NO public transportation without another adult if you receive anesthesia. - We recommend that an adult stay with you for 24 hours following discharge. - We also recommend that you do not drive, make important decision, drink alcoholic beverages, or take any drugs that were not prescribed by your health care provider for at least 24 hours after your discharge time. For Pediatric surgeries, we recommend two adults accompany the child home. Follow any additional instructions given to you from your surgeon. Telephone instructions given to Patient- Lea Marcial and asked if any additional questions and then verbalized understanding. Patient advised to call surgeon office or pre surgery nurse liaison [phone] if any additional questions.
[2024-07-26 13:57] VITALS: BMI 30.4
--- NOTE | 2024-08-02 12:27 | PM.IMHP ---
H&P: HPI History of Present Illness Date/Time: 08/02/24 12:27 Chief Complaint: left hand and elbow numbness and tingling Narrative: 64-year-old woman with left hand, wrist, forearm numbness and tingling. EMG nerve conduction shows carpal tunnel and cubital tunnel. Status post release on the right side with good result. Review of Systems Constitutional: Constitutional: Denies fever(s) Eyes: Eyes: Denies blurry vision ENT: Reports Normal hearing present Cardiovascular: Cardiovascular: Denies chest pain and Denies dyspnea Respiratory: Respiratory: Denies dyspnea and Denies wheezing Gastrointestinal: Gastrointestinal: Denies abdominal pain Genitourinary: Genitourinary: Denies urinary urgency Musculoskeletal: Musculoskeletal: Reports as per HPI and Denies numbness Integumentary/Breasts: Skin/Breast: Denies changing lesions and Denies sores Neurologic: Reports Normal hearing present, Denies behavioral changes, Denies confusion, Denies numbness and Denies convulsions Psychiatric: Psychiatric: Denies behavioral changes, Denies confusion and Denies hallucinations Endocrine: Endocrine: Denies heat intolerance Hematologic/Lymphatic: Hematologic/Lymphatic: Denies easy bleeding Allergic/Immunologic: Allergic/Immunologic: Denies wheezing PMF Past Medical History Medical History Cubital tunnel syndrome on left Cubital tunnel syndrome on right Left carpal tunnel syndrome Right carpal tunnel syndrome Cubital tunnel syndrome, bilateral Bilateral carpal tunnel syndrome Numbness and tingling in both hands Visual disturbance Facet arthritis of lumbar region COVID Person under investigation for COVID-19 Depression with anxiety Paresthesia of foot Tobacco abuse Family history of lung cancer History of tobacco abuse COPD (chronic obstructive pulmonary disease) Hypertension Anxiety Diabetes mellitus Fracture of right ankle Arthritis Tear of meniscus of left knee GERD (gastroesophageal reflux disease) History of rectal polyps Deviated septum Surgical History Surgical History History of arthroplasty of right ankle History of repair of right rotator cuff H/O oophorectomy History of salpingectomy H/O: hysterectomy H/O tubal ligation H/O colonoscopy H/O cardiac catheterization Family History Family History Grandparent Hypertension Diabetes mellitus Father Family history of lung cancer Diabetes mellitus Mother Brain aneurysm Diabetes mellitus Sibling Brain aneurysm Diabetes mellitus Other Family history of cardiovascular disease Social History Social History Smoking packs per day: 0.5 Smoking cigarettes per day: 10.0 Years smoked: 10 Smoking pack-years: 5.00 Smoking status: Former smoker Tobacco type: cigarettes Second hand tobacco smoke exposure: No Smoking end date: 01/31/18 Additional smoking assessment comments: quit a long time ago. Alcohol intake: never Substance use: never Substance use type: does not use Do You Feel Safe in your Home?: Yes Lack of Transportation: No Lack of Food: Never True Current Housing: I Have Housing Concerned About Future Housing: No Difficulty Paying Gas/Electric Bills: No Difficulty Paying for Meds: No Currently Unemployed: YES Education: High School Diploma/GED Difficulty w/ Childcare or Family Care: No Living arrangements: with family Occupation/Education: occupation Additional occupation/education comments: [employer] Gender identity (if verbalized by the patient): Female Spiritual care concerns: No Meds Home Medications and Allergies Home Medications ?Medication ?Instructions ?Recorded ?Confirmed ?Type rosuvastatin 10 mg tablet (Crestor) 10 mg PO DAILY #90 tabs 05/28/24 07/26/24 Rx tirzepatide 12.5 mg/0.5 mL 12.5 mg (0.5 mL) subcut WEEKLY #4 06/02/24 07/26/24 Rx subcutaneous pen injector mL Allergies Allergy/AdvReac Type Severity Reaction Status Date / Time lisinopril AdvReac Intermediate Cough Verified 07/26/24 13:40 losartan AdvReac Intermediate tachycardia Verified 07/26/24 13:40 Exam Const: General: cooperative, healthy appearing, no acute distress, well developed and alert; No confusion Orientation/consciousness: No confusion HENMT: Head: normal to inspection, normocephalic and atraumatic Eyes: Conjunctivae: conjunctivae normal Sclera: sclerae normal Neck: Neck: supple and nontender Chest: Chest palpation & inspection: normal inspection of the chest Resp: Effort & Inspection: normal respiratory effort and no audible wheezes Cardio: Rate: regular rate Rhythm: regular rhythm : General: Yes deferred Skin: General skin exam: no rashes or lesions noted Neuro: General: No confusion Motor exam (neuro): Normal motor muscle tone present throughout Sensory Exam: Sensory deficit (Neuro) (decreased sensation to light touch thumb, index, middle and radial ring avel) and Upper extremity sensory exam abnormal Deep tendon reflexes (DTR's): Right triceps reflex intensity grade: 2+, Left triceps reflex intensity grade: 2+, Rt Biceps (C5, C6): 2+, Left biceps reflex intensity grade: 2+, Right brachioradialis reflex intensity grade: 2+ and Left brachioradialis reflex intensity grade: 2+ Extrem: General: capillary refill normal Right upper extremity: normal to inspection, full ROM, normal capillary refill and wrist normal vascular exam ( ), radial pulse present and normal Malachi's test; Tinel's positive ( positive median nerve compression test. Positive Tinel's) and Phalen's positive Left upper extremity: normal to inspection and wrist normal vascular exam, radial pulse present and normal Malachi's test; Tinel's positive ( positive median nerve compression test. Positive Tinel's) and Phalen's positive Right lower extremity: normal to inspection and hip/thigh Details: normal to inspection Left lower extremity: hip/thigh Details: tenderness, swelling and abnormal ROM and ankle (no calf tenderness) Psych: Affect: normal affect Assessment and Plan Assessment and plan (1) Right carpal tunnel syndrome: Code(s): G56.01 - Carpal tunnel syndrome, right upper limb Status: Acute Assessment and Plan: status post surgical release with good result. Incision healed. (2) Cubital tunnel syndrome on right: Code(s): G56.21 - Lesion of ulnar nerve, right upper limb Status: Acute (3) Numbness and tingling in both hands: Code(s): R20.0 - Anesthesia of skin; R20.2 - Paresthesia of skin Status: Acute (4) Left carpal tunnel syndrome: Code(s): G56.02 - Carpal tunnel syndrome, left upper limb Status: Acute Assessment and Plan: Discussed nonoperative and operative treatment options with the patient. Risks and benefits of each as well as alternatives were reviewed. All of the patient's questions were answered. The risks of surgery reviewed including but not limited to: Neurovascular damage, wound complication, infection, blood clot, pulmonary embolus, stroke, myocardial infarction, and anesthetic risks up to and including . Continued pain and possible dysfunction were explained. Specific risks of the procedure including later recurrence of deformity. No guarantees were offered. If hardware used, discussed risk of failure/ breakage and possible need for removal. If complications occur, the patient understands the need for further treatment, possible further surgery. Patient verbalizes understanding and wishes to proceed. PLAN: Left carpal and cubital tunnel release (5) Cubital tunnel syndrome on left: Code(s): G56.22 - Lesion of ulnar nerve, left upper limb Status: Acute Assessment and Plan: Good result on the right side. Presents for similar release on the left elbow. Plan Presents for surgical treatment.
[2024-08-03] VITALS (8 sets, daily range): BP systolic 106–145; BP diastolic 58–70; PULSE 62–76; RESP 14–17; TEMP 36.2–36.4; O2SAT 94–100
--- NOTE | 2024-08-03 07:22 | WPDANESEPPF ---
Anes - Initial Pre Proc Eval Procedure: Operation Date: 08/03/24 08:30 Proposed Procedures p Left Carpal and Cubital Tunnel Release - Chuck Obrien MD Date/Time: 08/03/24 07:22 Surgeon: Chuck Obrien MD Pre Op Diagnosis: left carpal and cubital tunnel syndrome Patient Data Age: 64 Gender: F Height: 1.73 m Weight: 90.9 kg Allergies Allergy/AdvReac Type Severity Reaction Status Date / Time lisinopril AdvReac Intermediate Cough Verified 07/26/24 13:40 losartan AdvReac Intermediate tachycardia Verified 07/26/24 13:40 Home Medications ?Medication ?Instructions ?Recorded ?Confirmed ?Type rosuvastatin 10 mg tablet (Crestor) 10 mg PO DAILY #90 tabs 05/28/24 07/26/24 Rx tirzepatide 12.5 mg/0.5 mL 12.5 mg (0.5 mL) subcut WEEKLY #4 06/02/24 07/26/24 Rx subcutaneous pen injector mL Patient hx anesthesia problems: none Family hx anesthesia problems: none Results Review: All pre-operative results and documents have been reviewed as part of the pre-operative evaluation. [facility] Past Medical History Medical History Cubital tunnel syndrome on left Cubital tunnel syndrome on right Left carpal tunnel syndrome Right carpal tunnel syndrome Cubital tunnel syndrome, bilateral Bilateral carpal tunnel syndrome Numbness and tingling in both hands Visual disturbance Facet arthritis of lumbar region COVID Person under investigation for COVID-19 Depression with anxiety Paresthesia of foot Tobacco abuse Family history of lung cancer History of tobacco abuse COPD (chronic obstructive pulmonary disease) Hypertension Anxiety Diabetes mellitus Fracture of right ankle Arthritis Tear of meniscus of left knee GERD (gastroesophageal reflux disease) History of rectal polyps Deviated septum Surgical History Surgical History History of arthroplasty of right ankle History of repair of right rotator cuff H/O oophorectomy History of salpingectomy H/O: hysterectomy H/O tubal ligation H/O colonoscopy H/O cardiac catheterization Family History Family History Grandparent Hypertension Diabetes mellitus Father Family history of lung cancer Diabetes mellitus Mother Brain aneurysm Diabetes mellitus Sibling Brain aneurysm Diabetes mellitus Other Family history of cardiovascular disease Social History Social History Smoking packs per day: 0.5 Smoking cigarettes per day: 10.0 Years smoked: 10 Smoking pack-years: 5.00 Smoking status: Former smoker Tobacco type: cigarettes Second hand tobacco smoke exposure: No Smoking end date: 01/31/18 Additional smoking assessment comments: quit a long time ago. Alcohol intake: never Substance use: never Substance use type: does not use Do You Feel Safe in your Home?: Yes Lack of Transportation: No Lack of Food: Never True Current Housing: I Have Housing Concerned About Future Housing: No Difficulty Paying Gas/Electric Bills: No Difficulty Paying for Meds: No Currently Unemployed: YES Education: High School Diploma/GED Difficulty w/ Childcare or Family Care: No Living arrangements: with family Occupation/Education: occupation Additional occupation/education comments: [employer] Gender identity (if verbalized by the patient): Female Spiritual care concerns: No Anes - Eval Final PreProcedure Day of Procedure 08/03/24 07:22 Patient weight: overweight Heart: regular rate and rhythm Lungs: clear to auscultation Airway: Mallampati scale (Upper dentures. ) Neurological: alert and oriented Last oral intake: >/= 8 hours ASA classification: III Emergent: no Anesthetic plan: proceed Anesthesia type and monitoring: general LMA and standard monitoring Results Review: All pre-operative results and documents have been reviewed as part of the pre-operative evaluation. DM, hyperlipidemia, mounjaro has been off since 8 days. Cardiac cath approx 2020 nml per pt. She continues to be physically active working in a [employer], no cp or sob w exertion. Informed Consent: The patient's anesthetic plan and its attendant risks and benefits were discussed with the patient/family/POA. Questions were solicited and answers provided to the satisfaction of the patient/family/POA.
[2024-08-03] MEDS: KETOROLAC 15 MG/ML VIAL (*BKC) IV PUSH (07:30)
[2024-08-03] MEDS: LACTATED RINGERS 1,000 ML 30 ML IV CONT ×2 (07:30→09:34)
[2024-08-03] MEDS: ACETAMINOPHEN 500 MG TABLET 1000 MG PO (07:30)
[2024-08-03 07:31] LABS: Glucose Point of Care 108 mg/dl (65-105)
--- NOTE | 2024-08-03 08:05 | WPDHPUPDATE1 ---
History and Physical Update Update Date/Time: 08/03/24 08:05 History and Physical has been reviewed, including an updated exam of the patient. There are NO changes in the patient's condition. Risks, benefits, and alternatives have been discussed and questions answered. Patient agrees to proceed with procedure.
[2024-08-03] MEDS: ceFAZolin 2 GM/D5W 50 ML 2 GM/50 ML BAG IVPB (08:21)
[2024-08-03] MEDS: BUPIVACAINE/EPINEPHRINE 0.5% 10 ML VIAL 30 ML INFILTRATE (09:05)
--- NOTE | 2024-08-03 09:46 | W.PM.PROC2 ---
Procedure Note - Detailed Date of Procedure 08/03/24 Pre-op Diagnosis left carpal and cubital tunnel syndrome Post-op Diagnosis Same Procedure Performed Left carpal and cubital tunnel release Surgeon Chuck Obrien MD [employer] science research assistant Anesthesia General Indications 64-year-old woman with bilateral cubital tunnel carpal tunnel syndrome. Status post release on right. Presents now for similar release on the left. Description of Procedure After informed consent was given, the operative extremity was marked in the preoperative holding area. Intravenous antibiotics were given. The patient was taken to the operating room and underwent general anesthetic by the anesthesia team. A time-out was performed confirming patient, procedure, and operative site. Local infiltrate at the carpal tunnel and cubital tunnel was done with 0.5% marcaine. Prepping and draping was done using chloraprep skin solution with usual surgical sterile technique. Anatomic landmarks marked on skin. Hand was exsanguinated and arm tourniquet inflated to 250mmHg. Left Elbow was addressed 1st. 15 blade knife used to make an oblique incision over the cubital tunnel on the medial aspect of the elbow. Hemostasis controlled with electrocautery. Dissection carried down to the fascia which was incised in line with the skin incision. Deep fascia from the medial epicondyle was then identified and using a [place] elevator to protect the ulnar nerve the retinaculum was released proximally and the nerve was visualized. The retinaculum was then released from proximal to distal under direct visualization protecting the nerve. The retinaculum was noted to be compressive on the nerve. The nerve itself was otherwise intact. After release of the nerve the elbow was taken through range of motion and the nerve was noted to be stable. Wound irrigated with saline and subcutaneous tissue closed with 3-0 Monocryl interrupted suture. Skin repaired with 3-0 Monocryl running subcuticular stitch and dermabond. The wrist was then addressed. Incision was made with #15 blade knife in skin crease on volar palm. Hemostasis was achieved with electrocautery. Careful dissection was carried down to the transverse carpal ligament. Retractors were placed. Ligament overlying median nerve was incised in line with skin incision using [place] blade. Proximal and distal release was done with metzenbaum scissors under direct visualization. Mosquito clamp was placed deep to ligament to protect nerve during release. The nerve was inspected and noted to be intact with mild flattening. Tendons had good excursion. The tourniquet was then released and pressure held. Bleeding points were coagulated with bipolar cautery. The wound was thoroughly irrigated with saline. The skin was closed with 4-0 nylon interrupted suture. A sterile dressing was applied. Good capillary refill in the fingers and thumb was noted. The patient was transported to the recovery room in stable condition. All sponge, needle, instrument counts were correct at the end of the case. Estimated Blood Loss 5 Tourniquet Time Total Tourniquet Time: 48 Drains No Packing No Pathology None sent Complications None Condition Stable Disposition PACU [facility] Billing Surgery - Charge Forward: Surgery Billing ([id number], [id number])
[2024-08-03 10:02] LABS: Glucose Point of Care 128 mg/dl (65-105)
== END 2024-08-03 11:31 | disposition home or self-care (01) ==
PROVIDERS: PCP Family Medicine; Visit Provider Orthopaedic Surgery
PROC: (CPT 64721; principal; 2024-08-03 08:30)
DX: G56.02 Carpal tunnel syndrome, left upper limb (principal); G56.22 Lesion of ulnar nerve, left upper limb; E11.9 Type 2 diabetes mellitus without complications; Z79.85 Long-term (current) use of injectable non-insulin antidiabetic drugs; Z87.891 Personal history of nicotine dependence
CPT/HCPCS: 64721; 64718; 82948; A4565; A9270; J0690; J1100; J1885; J2003; J2250; J2405; J2704; J3010; J7120

== ENCOUNTER 2024-09-28 08:54 | Outpatient (CLI) | payer BC, SELFPAY ==
--- NOTE | ~2024-09-28 | MR_ITS ---
MRI of the lumbar spine Clinical History: Back pain Technique: Axial T2-weighted images, and sagittal T1-weighted, T2-weighted, and T2 fat-sat images wer e acquired. COMPARISON: 04/12/2023 Findings: There is no fracture or subluxation of the lumbar spine. Osseous alignment is unchanged. No suspicious bone marrow signal abnormality seen. At L1-L2, there is no disc bulge or herniation. There is moderate facet arthropathy. No central canal stenosis or neural foraminal narrowing. At L2-L3, there is minimal disc desiccation. No disc bulge or herniation. There is moderate facet art hropathy. No central canal stenosis or neural foraminal narrowing. At L3-L4, there is mild disc bulge with severe facet arthropathy. There is minimal central canal sten osis. Neural foramina are preserved. At L4-L5, there is minimal disc bulge with severe facet arthropathy. No central canal stenosis or emeka ral foraminal narrowing. At L5-S1, there is no disc bulge or herniation. There is mild to moderate facet arthropathy. No centr al canal stenosis or neural foraminal narrowing. Paravertebral soft tissues are unremarkable. Impression: Mild degenerative spondylosis overall, as above. Reviewed, dictated and finalized at location . Impression: Mild degenerative spondylosis overall, as above.
== END 2024-09-28 08:55 | disposition home or self-care (01) ==
LOC: GOSHIMG 08:55
PROVIDERS: PCP Nurse Practitioner Family; Visit Provider Nurse Practitioner Family
DX: R20.0 Anesthesia of skin (principal); R20.2 Paresthesia of skin; M47.896 Other spondylosis, lumbar region
CPT/HCPCS: 72148

== ENCOUNTER 2024-10-17 14:18 | Outpatient (CLI) | payer BC, SELFPAY ==
--- NOTE | ~2024-10-17 | CT_ITS ---
EXAMINATION: CT abdomen pelvis wo/w con DATE: 10/17/2024 15:00 INDICATION: Microscopic hematuria TECHNIQUE: Computed tomography (CT) of the abdomen and pelvis was performed without intravenous contr ast. CT of the abdomen and pelvis was then performed with a total of 130 mL Omnipaque-350 intravenous contrast using a double-bolus technique for simultaneous opacification of the renal parenchyma and r enal collecting system. Automated exposure control and iterative reconstruction technique were employ ed. The dose-length product was 1878.88 mGy-cm. COMPARISON: None FINDINGS: Lung bases are clear. Heart size is normal. No pericardial or pleural effusion. Scattered hepatic and splenic calcifications consistent with old granulomatous disease. Decompressed gallbladder, pancreas and bilateral adrenal glands are normal. Kidneys and ureters are normal with no urolithiasis, hydrou reteronephrosis or perinephric/ureteral stranding. Short segment of the proximal right ureter. Decomp ressed with no discernible intraluminal contrast. The remainder of the bilateral ureters and renal co llecting systems are well opacified on the postcontrast imaging with no focal defects or urothelial i rregularities. Bladder is normal with bilateral ureteral jets on the post contrast imaging. Bowels in cluding the appendix are normal. No free intraperitoneal gas or fluid. No pathologically enlarged abd ominal or pelvic lymphadenopathy. Mild thoracolumbar dextrocurvature with mild lumbar and moderate lo wer thoracic spondylosis. Chronic appearing T11 compression fracture with one third anterior vertebra l body height loss. Chronic minimal anterior wedging at T10 and T12. IMPRESSION: 1. Normal kidneys and ureters with no urolithiasis urothelial irregularities or abnormally enhancing lesions. Reviewed, dictated and finalized at location B.
[2024-10-17 14:44] LABS: Estimated Glomerular Filt Rate > 60
--- OUTSIDE RECORDS SUMMARY | 2024-10-17 15:58 | XMS_ITS | Referral Summary ---
Author Organization [facility] [address] Address [address] [place] [address] Care Team Providers Care Prototype Fabricator Name Role Phone Camden Brown MD Primary Care Provider + [phone] Allergies No known active allergies Medications hydrALAZINE (APRESOLINE) 50 mg tablet Take 50 mg by mouth daily 08/16/2019 Active clonazePAM (KlonoPIN) 1 mg tablet 07/26/2019 Active Victoza 2-Johan 0.6 mg/0.1 mL (18 mg/3 mL) injection Inject 1.8 mg under the skin daily 10/14/2020 Active buPROPion SR (WELLBUTRIN SR) 150 mg 12 hr tablet 01/17/2021 Active Farxiga 5 mg tablet 01/22/2021 Active metFORMIN (GLUCOPHAGE) 500 mg tablet Take 1,000 mg by mouth 2 (two) times a day with meals Active nebivoloL (BYSTOLIC) 10 mg tabletIndication s:Hypertension associated with diabetes (HCC) TAKE 1 TABLET DAILY 90 tablet 2 08/12/2021 Active topiramate (TOPAMAX) 25 mg tablet Take 1 tablet (25 mg total) by mouth 2 (two) times a day 60 tablet 5 01/20/2022 Active atorvastatin (LIPITOR) 20 mg tabletIndication s:Hyperlipidemia associated with type 2 diabetes mellitus (HCC),Coronary artery disease involving [place] coronary artery of [place] heart TAKE 1 TABLET DAILY 90 tablet 02/02/2022 Active Active Problems Problem Noted Date Diagnosed Date LISSY (obstructive sleep apnea) 04/10/2021 Intracranial hypertension 02/17/2021 Assessment & Plan (2021 9:56 AM CDT): Patient has experienced improvement in visual disturbance and headache well taking topiramate 50 mg b.i.d.. With the reduction in her topiramate the paresthesias previous experienced have eased as well. She currently exhibits a normal neurological examination. I have renewed her topiramate as scheduled. She will follow-up in neurology clinic in a year. Assessment & Plan (03/18/2021 8:49 AM CDT): Patient has known history of intracranial hypertension. Juan being placed on acetazolamide she developed a number of untoward adverse effects. This office was contacted in lieu of acetazolamide she was placed on topiramate 100 mg b.i.d.. While the side effects modestly declined, she has noticed ongoing headache. 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 In effort to reduce some side effects she still continues to have I have recommended she reduce the topiramate to 50 mg b.i.d. for the upcoming 3 months. She will follow-up in neurology clinic in 3 months time for reassessment on topiramate 50 mg b.i.d.. Assessment & Plan (02/17/2021 2:59 PM CDT): Patient has undergone CSF examination with elevated opening pressure consistent with intracranial hypertension. Other CSF parameters are otherwise normal. Her headaches have progressively worsened. I will start her on a trial of acetazolamide 500 mg b.i.d.. She will follow-up in neurology clinic per her previous scheduled appointment. Empty sella 01/27/2021 Assessment & Plan (01/27/2021 3:55 PM CDT): Patient has undergone an MRI brain which describes an empty sella by reviewed report. One consideration in concert with ongoing headaches as intracranial hypertension for which I will have a specific assess examination performed in investigation of possibility. I will see her back thereafter. Chronic tension-type headache, intractable 01/27 Assessment & Plan (02/17/2021 2:59 PM CDT): Patient has pending MRA brain at this time. She will follow-up following completion of study. Assessment & Plan (01/27/2021 3:55 PM CDT): Patient describes a nearly 8 month history of continuing but fluctuant headache with historical description suspicious for chronic muscle contraction type headache. However with the MRI description of an empty sella intracranial hypertension remains a possibility. However CSF examination performed to look into this possibility. In addition I will have an MR angiogram brain performed to rule out cerebral aneurysm given her family history of same. 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 Gender Identity Not on file Sexual Orientation Not on file Last Filed Vital Signs Vital Sign Reading Time Taken Comments Blood Pressure 120/70 01/20/2022 1:23 PM CDT Pulse 55 01/20/2022 1:23 PM CDT Temperature 35.7 C (96.2 F) 01/20/2022 1:23 PM CDT Respiratory Rate 20 02/10/2021 10:3 5 AM CDT Oxygen Saturation 97% 04/10/2021 3:15 PM CDT Inhaled Oxygen Concentration - - Weight 107.4 kg (236 lb 12.8 oz) 01/20/2022 1:23 PM CDT Height 167.6 cm (5' 6 ) 01/20/2022 1:23 PM CDT Body Mass Index 38.22 01/20/2022 1:23 PM CDT Plan of Treatment Not on file Procedures Procedure Name Priority Date/Time Associated Diagnosis Comments POCT LIPID PANEL Routine 12/05/2020 3:22 PM CDT Hyperlipidemia associated with type 2 diabetes mellitus (HCC) from Last 3 Months or Most Recently Relevant to Health Maintenance Results * POCT lipid panel (12/05/2020 3:22 PM CDT) Cholesterol, POC 125 mg/dL HDL, POC 43 mg/dL Triglycerides, POC 93 mg/dL LDL Cholesterol POC 64 mg/dL Chol/HDL Ratio, POC 2.9 Non-HDL Cholesterol, POC 82 mg/dL Cholesterol Total, POC 125 mg/dL Capillary blood 12/05/2020 3 :22 PM CDT us Champ Grijalva MD POINT OF CARE TEST ORDERA BLES Final Result from Last 3 Months or Most Recently Relevant to Health Maintenance Insurance [employer] O[employer] Care Teams Prototype Fabricator Relationship Specialty Start Date End Date Camden Brown MD PCP - General 05/26/11
--- OUTSIDE RECORDS SUMMARY | 2024-10-17 15:58 | XMS_ITS | Clinical Summary ---
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 In effort to reduce some side [...] ellitus 08/21/2019 Hypertension associated with diabetes 08/21/2019 Surgical History Surgery Date Site/Laterality Comments HYSTERECTOMY ORAL SURGERY ROTATOR CUFF REPAIR 07/12/2005 - 07/11/2006 Right KNEE ARTHROSCOPY 07/12/2014 - 07/11/2015 Right ANKLE ARTHROSCOPY W/ OPEN REPAIR 07/12/2005 - 07/11/2006 Right VAGINAL DELIVERY x3 FL FLUORO GUIDED LUMBAR PUNCTURE 02/10/2021 Right Medical History Medical History Date Comments Diabetes (HCC) Depression Sleep apnea had study done r ecently no results yet Hypertension Arrhythmia palpitations Diabetes mellitus type I (HCC) Headache Chronic pain disorder Obesity Blurred vision, bilateral Family History Medical History Relation Name Comments No Known Problems Brother 1 No Known Problems Brother 2 No Known Problems Brother 3 No Known Problems Brother 4 No Known Problems Brother 5 Lung cancer Father Cerebral aneurysm Mother Diabetes Sister 1 Hypertension Sister 1 Diabetes Sister 2 Hypertension Sister 2 Diabetes Sister 3 Diabetes Sister 4 Diabetes Sister 5 Relation Name Status Comments Brother 1 Alive Brother 2 Alive Brother 3 Alive Brother 4 Alive Brother 5 Alive Father Mother Sister 1 Alive Sister 2 Alive Sister 3 Alive Sister 4 Alive Sister 5 Alive Social History Tobacco Use Types Packs/Day Years Used Date Smoking Tobacco: Former Cigarettes Smokeless Tobacco: Never Alcohol Use Standard Drinks/Week Comments Defer 0 (1 standard drink = 0.6 oz pur e alcohol) Comments No Sex and Gender Information Value Date Recorded Sex Assigned at Not on file 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 Gender Identity Not on file Sexual Orientation Not on file Obstetrics History Last Filed Vital Signs Vital Sign Reading [...] 01/20/2022 1:23 PM CDT Plan of Treatment Health Maintenance Due Date Last Done Comments Albumin Creatinine Ratio, Urine 1962 Breast Cancer Screening-Mammogram 1962 Colon Cancer Screening-Colonoscopy 1962 Depression Screening 1962 Hemoglobin A1C 1962 Hepatitis C Screening 1962 eGFR 1962 Dilated Eye Exam 1962 Foot Exam 1962 DTaP/Tdap/Td Vaccine (1 - Tdap) 1973 Hepatitis B Screening 1980 Regular Well Visit/Exam 18-64 1980 Zoster Vaccine (2 of 2) 06/13/2019 04/18/2019 Pneumococcal vaccine <65 (2 of 2 - PCV) 04/18/2020 04/18/2019 Lipid Panel 12/05/2021 12/05/2020, 11/10, 08/21/2019 Influenza Vaccine (#1) 2024 9, 03/25/2018, 05/05/2017 Procedures Procedure Name Priority Date/Time Associated Diagnosis [...] Capillary blood 12/05/2020 3 :22 PM CDT Champ Grijalva MD POINT OF CARE TEST ORDERA BLES Final Result from Last 3 Months or Most Recently Relevant to Health Maintenance Insurance [employer] Care Teams Human Resources Administrator Relationship Specialty Start Date End Date Camden Brown MD PCP - General 05/26/11
== END 2024-10-17 14:19 | disposition home or self-care (01) ==
PROVIDERS: PCP Family Medicine; Visit Provider Nurse Practitioner Adult Health
DX: R31.29 Other microscopic hematuria (principal); R10.9 Unspecified abdominal pain
CPT/HCPCS: 74178; Q9967

== ENCOUNTER 2024-11-08 07:39 | Outpatient (CLI) | payer BC, SELFPAY ==
--- OUTSIDE RECORDS SUMMARY | 2024-11-08 07:44 | XMS_ITS | Referral Summary ---
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
--- OUTSIDE RECORDS SUMMARY | 2024-11-08 07:44 | XMS_ITS | Clinical Summary ---
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
--- NOTE | 2024-11-08 07:54 | ECG_ITS ---
Test Date: 2024-11-08 08:09:25 Measurements Intervals [place] Rate: 55 P: 64 [place]: 160 QRS: 1 QRSD: 115 T: -37 QT: 416 QTc: 401 Interpretive Statements SINUS BRADYCARDIA INTRAVENTRICULAR CONDUCTION DELAY BORDERLINE ST-T WAVE ABNORMALITY- DIFFUSE LEADS BASELINE ARTIFACT- I, II, III, AVR, AVF, V3-V6 BORDERLINE ECG Compared to ECG 06/19/2024 15:24:26 HEART RATE HAS DECREASED Electronically Signed On 11-08-2024 08:15:42 CDT by Dirk Gamez D.O.
[2024-11-08 07:58] LABS: Basophils Percent Auto 0.9 % (0.2-1.2); Eosinophils Absolute Auto 0.1 K/mm3 (0-0.3); Eosinophils Percent Auto 2.1 % (0-4.4); Hematocrit 38.3 % (37.0-47.0); Hemoglobin 13.3 g/dL (12.0-15.0); Immature Granulocyte Absolute 0.01 K/mm3 (0.00-0.031); Immature Granulocyte Percent A 0.2 % (0-0.5); Lymphocytes Absolute Auto 1.27 K/mm3 (0.9-3.2); Lymphocytes Percent Auto 27.2 % (18.3-44.2); Mean Corpuscular HGB Conc 34.7 g/dl (32-36); Mean Corpuscular Hemoglobin 31.3 pg (26-34); Mean Corpuscular Volume 90.1 fl (80-100); Mean Platelet Volume 8.7 fl (7.4-10.4); Monocytes Absolute Auto 0.5 K/mm3 (0.1-0.6); Monocytes Percent Auto 10.1 % (2.6-8.5); Neutrophils Absolute Auto 2.8 K/mm3 (1.3-6.7); Neutrophils Percent Auto 59.5 % (45.5-73.1); Platelet Count Result 207 k/mm3 (150-375); Red Blood Count 4.25 M/mm3 (4.2-5.4); White Blood Count 4.7 K/mm3 (4.5-10.0)
[2024-11-08 08:07] LABS: Anion Gap 6 mmol/L (4-12); Blood Urea Nitrogen 11 mg/dL (7-17); Carbon Dioxide 28 mmol/L (22-30); Chloride 105 mmol/L (98-107); Estimated Glomerular Filt Rate > 60; Glucose 99 mg/dL (65-110); Potassium 3.7 mmol/L (3.4-5.0); Sodium 139 mmol/L (137-145)
[2024-11-08 08:09] LABS: Bacteria Urine None Seen /hpf; Non Pathogenic Casts 0-2; RBC Urine 0-2 /hpf (0-2); Squamous Epithelial Cell Urine None Seen /hpf (Few); WBC Urine 0-5 /hpf (0-3)
[2024-11-08 08:56] LABS: Color Urine Yellow (Yellow)
[2024-11-08 08:57] LABS: Add Urine Microscopic? YES; Appearance Urine Clear (Clear); Bilirubin Urine Negative (Negative); Blood Urine Trace-intact (Negative); Glucose Urine UA Negative (Negative); Ketones Urine Negative (Negative); Leukocyte Esterase Ur Trace LEU/UL (Negative); Nitrate Urine Negative (Negative); Protein Urine Negative (Negative); Specific Grav Ur 1.015 (1.010-1.020); Urobilinogen Urine 0.2 mg/dL (0.2-1.0); pH Urine 5.5 (5.0-8.0)
[2024-11-08 08:58] LABS: Hemoglobin A1C 5.1 % (<5.7)
== END 2024-11-08 07:40 | disposition home or self-care (01) ==
LOC: ANHLAB 07:41
PROVIDERS: PCP Family Medicine; Visit Provider Nurse Practitioner Family
DX: E78.5 Hyperlipidemia, unspecified (principal); R53.83 Other fatigue; I10 Essential (primary) hypertension; E11.9 Type 2 diabetes mellitus without complications; Z79.4 Long term (current) use of insulin
CPT/HCPCS: 36415; 80048; 81001; 83036; 85025; 93005

== ENCOUNTER 2024-11-20 08:30 | Outpatient (CLI) | payer BC, SELFPAY ==
--- OUTSIDE RECORDS SUMMARY | 2024-11-20 08:42 | XMS_ITS | Clinical Summary ---
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
--- OUTSIDE RECORDS SUMMARY | 2024-11-20 08:42 | XMS_ITS | Referral Summary ---
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
[2024-11-20 10:21] LABS: Albumin Level 4.3 g/dL (3.5-5.1)
[2024-11-20 10:22] LABS: INR 1.1; Partial Thromboplastin Time 26.1 Seconds (22.3-36.8); Prothrombin Time 14.1 Seconds (11.1-14.7)
[2024-11-20 10:31] LABS: Urine Cotinine POSITIVE
[2024-11-20 11:20] LABS: MRSA (PCR) NOT DETECTED (NOT DETECTE)
== END 2024-11-20 08:31 | disposition home or self-care (01) ==
LOC: ANHSURGERY 08:34
PROVIDERS: PCP Family Medicine; Visit Provider Orthopaedic Surgery
DX: Z01.818 Encounter for other preprocedural examination (principal); M17.12 Unilateral primary osteoarthritis, left knee; N39.0 Urinary tract infection, site not specified
CPT/HCPCS: 80307; 82040; 85610; 85730; 86850; 86900; 86901; 87086; 87641

== ENCOUNTER 2024-12-20 08:44 | Outpatient (CLI) | payer BC, SELFPAY ==
[2024-12-20 12:06] LABS: Urine Cotinine NEGATIVE
== END 2024-12-20 08:45 | disposition home or self-care (01) ==
LOC: ANHSURGERY 08:47
PROVIDERS: PCP Family Medicine; Visit Provider Orthopaedic Surgery
DX: F17.200 Nicotine dependence, unspecified, uncomplicated (principal); Z80.1 Family history of malignant neoplasm of trachea, bronchus and lung
CPT/HCPCS: 80307

== ENCOUNTER 2025-01-10 14:22 | Outpatient (CLI) | payer BC, SELFPAY ==
[2025-01-10 15:02] LABS: Hematocrit 33.1 % (37.0-47.0); Hemoglobin 11.5 g/dL (12.0-15.0); Immature Granulocyte Percent A 0.2 % (0-0.5); Lymphocytes Absolute Auto 1.44 K/mm3 (0.9-3.2); Mean Corpuscular HGB Conc 34.7 g/dl (32-36); Mean Corpuscular Hemoglobin 31.3 pg (26-34); Mean Corpuscular Volume 90.2 fl (80-100); Nucleated Red Blood Cells Absolute Auto 0.000 K/mm3 (0.0-0.012); Nucleated Red Blood Cells Perc 0.0 % (0.0-0.2); Platelet Count Result 233 k/mm3 (150-375); Red Blood Count 3.67 M/mm3 (4.2-5.4); White Blood Count 4.9 K/mm3 (4.5-10.0)
[2025-01-10 15:14] LABS: Anion Gap 7 mmol/L (4-12); Blood Urea Nitrogen 13 mg/dL (7-17); Calcium 9.1 mg/dL (8.4-10.2); Carbon Dioxide 23 mmol/L (22-30); Chloride 110 mmol/L (98-107); Estimated Glomerular Filt Rate > 60; Glucose 147 mg/dL (65-110); Potassium 3.8 mmol/L (3.4-5.0); Sodium 140 mmol/L (137-145)
== END 2025-01-10 14:23 | disposition home or self-care (01) ==
LOC: ANHSURGERY 14:26
PROVIDERS: PCP Family Medicine; Visit Provider Orthopaedic Surgery
DX: M17.12 Unilateral primary osteoarthritis, left knee (principal); Z01.818 Encounter for other preprocedural examination
CPT/HCPCS: 36415; 80048; 85025; 86850; 86900; 86901

== ENCOUNTER 2025-01-17 01:55 | Day surgery (SDC) | payer BC, SELFPAY ==
--- NOTE | 2024-11-20 08:34 | PC.NURSE ---
Addendum entered by Amira Sarmiento RN 11/20/24 09:25: MAY HAVE CLEAR LIQUIDS UNTIL 7:30AM ON DAY OF SURGERY. PT RELAYS UNDERSTANDING. Original Note: Report to the Outpatient Waiting Room, entrance under the green pavilion located off [facility], at time ___8:30am____ on date ___11/29/24____. Planned Procedure Time: ___10:30am .? Time changes happen often and if your time is changed the preop area will call you the afternoon before. - You and your visitor will be asked to self-screen and do not enter if you have any COVID symptoms. Please call surgeon if you need to reschedule. - A mask is optional within the hospital at this time. Patients may have clear liquids (water, carbonated beverages, clear teas, apple juice) until 3 hours prior to surgery (4:30AM) with a maximum of 20 ounces. - No food from midnight until time of surgery and no smoking, or chewing tobacco (or any form of nicotine). No chewing gum, candy or mints. Take only the following medications with a SIP of water on the morning of surgery: NONE DO NOT STOP ANY OF YOUR OTHER PRESCRIPTION MEDICATIONS PRIOR TO SURGERY EXCEPT THE FOLLOWING Hold all vitamins and supplements for 3 days per anesthesiologist. Medications to discontinue per physician ____HOLD ALEVE FOR 7 DAYS PRE-OP PER DR SÁNCHEZ Date to take last dose 11/21/24 Please no make-up, nail french, hairspray, perfume, deodorant, or body powder the day of surgery.? No jewelry (including any body piercings) or valuables the day of surgery, leave them at home.? Please take a shower or bath the night before, or the morning of, surgery with an antibacterial soap.? Wear comfortable, loose fitting clothing.? - Jewelry must be removed prior to entering the operating room.? Rings and piercings that are not removed may be cut off. - The hospital will not accept responsibility for valuables.? - Please leave all valuables, including medications, at home the day of surgery. If you are going home after surgery, a licensed local company flatbed truck driver must drive you home.? - NO public transportation without another adult if you receive anesthesia. - We recommend that an adult stay with you for 24 hours following discharge. - We also recommend that you do not drive, make important decision, drink alcoholic beverages, or take any drugs that were not prescribed by your health care provider for at least 24 hours after your discharge time. Follow any additional instructions given to you from your surgeon. HIBICLEREA SHOWER PER DR SÁNCHEZ. Telephone instructions given to ___PATIENT and asked if any additional questions and then verbalized understanding. Patient advised to call surgeon office or pre surgery nurse liaison [phone] if any additional questions.
[2024-11-20 08:43] VITALS: BP 131/79; PULSE 56; RESP 16; TEMP 36.7; O2SAT 99; BMI 29.1
--- OUTSIDE RECORDS SUMMARY | 2024-11-29 00:45 | XMS_ITS | Clinical Summary ---
Author Organization [facility] [place] [address] [facility] [address] [place] [address] Care Team Providers Care Labor Relations Director Name Role Phone Camden Brown MD Primary Care Provider Allergies No known active allergies Medications hydrALAZINE [...] 2 diabetes mellitus (HCC),Coronary artery disease involving [place] coronary artery of [place] heart TAKE 1 TABLET DAILY 90 tablet [...] not been on medication long enough to custody assistant affect. 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
--- OUTSIDE RECORDS SUMMARY | 2024-11-29 00:45 | XMS_ITS | Referral Summary ---
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
[2025-01-10 09:41] VITALS: BMI 27.4
--- NOTE | 2025-01-10 09:48 | PC.NURSE ---
Report to the Outpatient Waiting Room, entrance under the green pavilion located off [facility], at time __8:30AM on date ___01/17/25____. Planned Procedure Time: ___10:30AM .? Time changes happen often and if your time is changed the preop area will call you the afternoon before. - You and your visitor will be asked to self-screen and do not enter if you have any COVID symptoms. Please call surgeon if you need to reschedule. - A mask is optional within the hospital at this time. Patients may have clear liquids (water, carbonated beverages, clear teas, apple juice) until 3 hours prior to surgery (7:30AM) with a maximum of 20 ounces. - No food from midnight until time of surgery and no smoking, or chewing tobacco (or any form of nicotine). No chewing gum, candy or mints. Take only the following medications with a SIP of water on the morning of surgery: ___NONE DO NOT STOP ANY OF YOUR OTHER PRESCRIPTION MEDICATIONS PRIOR TO SURGERY EXCEPT THE FOLLOWING Hold all vitamins and supplements for 3 days per anesthesiologist. Medications to discontinue per physician HOLD ALEVE (ALL NSAIDS) 7 DAYS PRE-OP Date to take last dose 01/09/25 Please no make-up, nail [place], hairspray, perfume, deodorant, or body powder the day of surgery.? No jewelry (including any body piercings) or valuables the day of surgery, leave them at home.? Please take a shower or bath the night before, or the morning of, surgery with an antibacterial soap.? Wear comfortable, loose fitting clothing.? - Jewelry must be removed prior to entering the operating room.? Rings and piercings that are not removed may be cut off. - The hospital will not accept responsibility for valuables.? - Please leave all valuables, including medications, at home the day of surgery. If you are going home after surgery, a licensed van cdl driver must drive you home.? - NO public transportation without another adult if you receive anesthesia. - We recommend that an adult stay with you for 24 hours following discharge. - We also recommend that you do not drive, make important decision, drink alcoholic beverages, or take any drugs that were not prescribed by your health care provider for at least 24 hours after your discharge time. Follow any additional instructions given to you from your surgeon. HIBICLENS SHOWERS PER DR SÁNCHEZ. Telephone instructions given to ___PATIENT and asked if any additional questions and then verbalized understanding. Patient advised to call surgeon office or pre surgery nurse liaison [phone] if any additional questions.
[2025-01-17] VITALS (14 sets, daily range): BP systolic 133–155; BP diastolic 58–76; PULSE 58–81; RESP 11–18; TEMP 36.4–37.1; O2SAT 94–100; BMI 29.7
--- NOTE | ~2025-01-17 | XR_ITS ---
EXAMINATION: [id number] DATE: 01/17/2025 14:44 INDICATION: Postoperative evaluation following left total knee arthroplasty. TECHNIQUE: Anteroposterior and lateral views of the left knee were obtained. COMPARISON: None. FINDINGS: Left total knee arthroplasty without patellar resurfacing appears well seated and in near anatomic al ignment. No fractures identified. Expected postoperative subcutaneous and intra-articular gas. IMPRESSION: 1. Left total knee arthroplasty, negative for postoperative purposes. Reviewed, dictated and finalized at location A.
--- OUTSIDE RECORDS SUMMARY | 2025-01-17 01:59 | XMS_ITS | Clinical Summary ---
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
--- OUTSIDE RECORDS SUMMARY | 2025-01-17 01:59 | XMS_ITS | Referral Summary ---
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
--- NOTE | 2025-01-17 07:20 | WPDHPUPDATE1 ---
History and Physical Update Update Date/Time: 01/17/25 07:20 History and Physical has been reviewed, including an updated exam of the patient. There are NO changes in the patient's condition. Risks, benefits, and alternatives have been discussed and questions answered. Patient agrees to proceed with procedure.
[2025-01-17 08:40] LABS: Add Urine Microscopic? NO; Appearance Urine Clear (Clear); Glucose Urine UA Negative (Negative); Leukocyte Esterase Ur Negative LEU/UL (Negative); Nitrate Urine Negative (Negative); Specific Grav Ur 1.017 (1.001-1.035)
[2025-01-17] MEDS: LACTATED RINGERS 1,000 ML 30 ML IV CONT ×2 (08:55→14:28)
[2025-01-17] MEDS: ACETAMINOPHEN 500 MG TABLET 1000 MG PO (09:00)
[2025-01-17] MEDS: TRANEXAMIC ACID 1,000MG/ISO100 1,000 MG/100 ML BAG 200 MG IVPB (10:05)
--- NOTE | 2025-01-17 10:50 | P.PNAN_ITS ---
Anes - Initial Pre Proc Eval Procedure: Operation Date: 01/17/25 10:30 Proposed Procedures p Left Total Knee Arthroplasty - Andrew Fuentes MD Date/Time: 01/17/25 10:50 Surgeon: Andrew Fuentes MD Pre Op Diagnosis: OA left knee Patient Data Age: 64 Gender: F Height: 1.73 m Weight: 88.9 kg Last Vital Signs Temp 98 F 01/17/25 08:15 Pulse 58 L 01/17/25 08:15 Resp 16 01/17/25 08:15 BP 145/73 H 01/17/25 08:15 Pulse Ox 100 01/17/25 08:15 O2 Del Method Room Air 11/20/24 08:43 Allergies Allergy/AdvReac Type Severity Reaction Status Date / Time lisinopril AdvReac Intermediate Cough Verified 01/17/25 09:34 losartan AdvReac Intermediate tachycardia Verified 01/17/25 09:34 Home Medications ?Medication ?Instructions ?Recorded ?Confirmed ?Type rosuvastatin 10 mg tablet (Crestor) 10 mg PO DAILY #90 tabs 11/02/24 11/20/24 Rx naproxen sodium 220 mg capsule 440 mg PO Q8-12H PRN pain 11/20/24 11/20/24 History (Aleve) tirzepatide 12.5 mg/0.5 mL 12.5 mg (0.5 mL) subcut WEEKLY #4 12/23/24 01/17/25 Rx subcutaneous pen injector mL chlorhexidine gluconate 4 % 1 applic topical DAILY #237 mL 01/05/25 01/17/25 Rx topical liquid (Hibiclens) acetaminophen 500 mg tablet 1,000 mg PO Q6H PRN pain 01/10/25 01/10/25 History (Tylenol Extra Strength) Laboratory Tests 01/17/25 01/17/25 08:33 09:01 POC Capillary Glucose 101 mg/dl (65-105) Urine Color Yellow (Yellow) Urine Appearance Clear (Clear) Urine pH 5.0 (5.0-9.0) Ur Specific [place] 1.017 (1.001-1.035) Urine Protein Negative mg/dL (Negative) Urine Glucose (UA) Negative mg/dL (Negative) Urine Ketones Negative mg/dL (Negative) Ur Blood (Man) Negative (Negative) Urine Nitrate Negative (Negative) Urine Bilirubin Negative (Negative) Urine Urobilinogen 0.2 mg/dL (<2.0) Leukocyte Esterase Rfl Negative VARUN/UL (Negative) Patient hx anesthesia problems: none Family hx anesthesia problems: none Results Review: All pre-operative results and documents have been reviewed as part of the pre- operative evaluation. [facility] Past Medical History Medical History Degenerative joint disease of knee Other fatigue Weakness Thoracic compression fracture Flank pain, acute Flank pain Microhematuria Encounter for tobacco use cessation counseling Dizziness Fatigue Atypical chest pain Hand eczema Hypersomnia Acute bronchitis Traumatic compression fracture of eleventh thoracic vertebra Lumbosacral spondylosis New daily persistent headache Post concussion syndrome Daily headache Nonintractable headache Dorsalgia Sacroiliitis Complex tear of medial meniscus, current injury, left knee, initial encounter Urinary frequency Vaginal discharge Urinary symptom or sign Hypokalemia Abdominal discomfort Hx of colonic polyps Elevated liver enzymes Diarrhea Blurry vision Empty sella syndrome Vitamin deficiency, unspecified Glucose found in urine on examination Other hyperlipidemia Other and unspecified hyperlipidemia Irregular heart beat Anxiety disorder, unspecified Depression Major depressive disorder, single episode, unspecified Numbness and tingling of both legs below knees Cubital tunnel syndrome on left Cubital tunnel syndrome on right Left carpal tunnel syndrome Right carpal tunnel syndrome Cubital tunnel syndrome, bilateral Bilateral carpal tunnel syndrome Numbness and tingling in both hands Visual disturbance Facet arthritis of lumbar region COVID Person under investigation for COVID-19 Depression with anxiety Paresthesia of foot Tobacco abuse Family history of lung cancer History of tobacco abuse COPD (chronic obstructive pulmonary disease) Hypertension Anxiety Diabetes mellitus Fracture of right ankle Arthritis Tear of meniscus of left knee GERD (gastroesophageal reflux disease) History of rectal polyps Deviated septum Surgical History Surgical History History of arthroplasty of right ankle History of repair of right rotator cuff H/O oophorectomy History of salpingectomy H/O: hysterectomy H/O tubal ligation H/O colonoscopy H/O cardiac catheterization Family History Family History Grandparent Hypertension Diabetes mellitus Father Family history of lung cancer Diabetes mellitus Mother Brain aneurysm Diabetes mellitus Sibling Brain aneurysm Diabetes mellitus Other Family history of cardiovascular disease Social History Social History Smoking packs per day: 1 Smoking cigarettes per day: 20.0 Years smoked: 6 Smoking pack-years: 6.00 Smoking status: Former smoker Tobacco type: cigarettes and e-cigarettes/vaping Second hand tobacco smoke exposure: No Smoking end date: 12/10/24 Additional smoking assessment comments: QUIT SMOKING CIG ~2019, QUIT VAPING ~ 12/10/24 Alcohol intake: never Substance use: never Substance use type: does not use Do You Feel Safe in your Home?: Yes Lack of Transportation: No Lack of Food: Never True Current Housing: I Have Housing Concerned About Future Housing: No Difficulty Paying Gas/Electric Bills: No Difficulty Paying for Meds: No Currently Unemployed: YES Education: High School Diploma/GED Difficulty w/ Childcare or Family Care: No Living arrangements: with family Additional living arrangements comments: SPOUSE Occupation/Education: occupation Additional occupation/education comments: [employer] Gender identity (if verbalized by the patient): Female Spiritual care concerns: No Anes - Eval Final PreProcedure Day of Procedure 01/17/25 10:50 Patient weight: overweight Lungs: normal air movement Airway: Mallampati scale class II and special considerations (Upper edentulous. ) Neurological: alert and oriented Last oral intake: >/= 8 hours ASA classification: III Emergent: no Anesthetic plan: proceed Anesthesia type and monitoring: general LMA and standard monitoring Results Review: All pre-operative results and documents have been reviewed as part of the pre- operative evaluation. Hyperlipidemia, DM fsbs 101. Pt w overall good functional status, no cp or sob w walking 1-2 fos. Informed Consent: The patient's anesthetic plan and its attendant risks and benefits were discussed with the patient/family/POA. Questions were solicited and answers provided to the satisfaction of the patient/family/POA.
--- NOTE | 2025-01-17 11:37 | WPDANESPNB ---
Anes - Peripheral Nerve Block Date/Time: 01/17/25 11:37 I have discussed with the patient/family/POA the placement of a peripheral nerve block for post-operative pain management, including associated risks, benefits, complications, and side effects. Alternative methods of post-operative analgesia were detailed. Questions were solicited and answers provided to the satisfaction of the patient/family/POA. Time-Out: A pre-procedural Time-Out was completed immediately before starting the procedure and confirmed: Patient Identification, Site, Procedure, Patient Position and the Availability of Requisite Equipment. Clinical Indications: Acute post-operative pain management requested by the operative surgeon. Nerve Block Insertion Note Anes-nerve block: adductor canal left Patient position: supine Skin prep: chlorhexidine Needle: 22 gauge, stimulating, insulated echogenic needle. Needle length: 80 mm Technique: ultrasound Injectate: bupivacaine 0.5% with epi 5 mcg/ml (15 mls. ) Observations: tolerated well Complications: none Procedure start time:: 112 Procedure end time:: 1133
[2025-01-17] MEDS: ceFAZolin 2 GM in SODIUM CHLORIDE 0.9% IV 50 ML 100 ML IVPB (11:39)
[2025-01-17] MEDS: SODIUM CHLORIDE 0.9% IV 37.7 ML, MORPHINE SULFATE INJ (*CRX) 2 MG, ROPivacaine HCL 1% 2... INFILTRATE (12:21)
[2025-01-17] MEDS: TRANEXAMIC ACID 1,000 MG/10 ML AMPUL 1000 MG IV PUSH (13:31)
--- NOTE | 2025-01-17 14:45 | W.PM.PROC2 ---
Procedure Note - Detailed Date of Procedure 01/17/25 Pre-op Diagnosis OA left knee Post-op Diagnosis Same Procedure Performed L TKA Surgeon Andrew Fuentes MD Anesthesia General Description of Procedure THE LEFT KNEE WAS PREPPED AND DRAPED IN THE STERILE FASHION. THERE WAS A 15 DEG OF RECURVATUM. A MIDLINE SKIN INCISION WAS MADE. A MEDIAL PARAPATELLAR ARTHROTOMY WAS MADE. THE PATELLA WAS EVERTED. THERE WAS TRICOMPARTMENT DJD. AN INTRAMEDULLARY PEEWEE WAS PLACED IN THE FEMUR. A DISTAL FEMORAL CUT WAS MADE IN 5 DEGREES OF VALGUS REMOVING APPROXIMATELY 6 MM OF BONE FROM THE DISTAL FEMUR. THE FEMUR WAS SIZED TO 4. A 4 FEMORAL CUTTING BLOCK WAS PLACED IN 3 DEGREES OF EXTERNAL ROTATION AND IN ALIGNMENT WITH GABRIELE'S LINE AND THE TRANSEPICONDYLAR AXIS. ANTERIOR POSTERIOR AND CHAMFER CUTS WERE MADE. THE CUTS WERE EXCELLENT. NEXT AN INTRAMEDULLARY CUTTING GUIDE WAS PLACED IN THE TIBIA. A TRANS TIBIAL CUT WAS MADE ALONG THE LONG AXIS OF THE TIBIA. APPROXIMATELY 8 MM OF BONE WAS REMOVED FROM THE HIGH SIDE OF THE TIBIA. POSTERIOR FEMORAL OSTEOPHYTES WERE REMOVED FROM THE FEMORAL CONDYLES. NEXT A PS CUTTING BLOCK WAS PLACED FOR THE BOX CUT. A 5 TIBIAL TRIAL WAS PLACED IN ALIGNMENT WITH THE 1/3 MEDIAL ASPECT OF THE TIBIAL TUBERCLE. THEN A 4 FEMORAL TRIAL COMPONENT WAS PLACED. BOTH HAD EXCELLENT FITS. EVENTUALLY A 13 MM PS POLYETHYLENE TRIAL COMPONENT WAS PLACED. THE KNEE WAS TAKEN THROUGH A RANGE OF MOTION. THE KNEE CAME OUT TO FULL EXTENSION. THERE WAS NO ABNORMAL TILT TO THE PATELLA. THERE WAS GOOD A/P AND VARUS/VALGUS STABILITY. THERE WAS NO EXCESSIVE ROLL BACK WITH FLEXION. THE TRIAL COMPONENTS WERE REMOVED. THEN A AVA 4 PS FEMORAL COMPONENT AND 5 TIBIAL COMPONENT WITH A 13 PS POLYETHYLENE COMPONENT WERE PRESS FIT INTO PLACE. THE KNEE WAS TAKEN THROUGH A ROM AGAIN AND FOUND TO BE STABLE WITH NO PATELLA TILT NO EXCESSIVE ROLL BACK WITH FLEXION AND GOOD STABILITY WITH COMPLETE AND FULL EXTENSION. THE KNEE WAS IRRIGATED WITH STERILE BETADINE AND WATER FOR ABOUT 3 MINUTES. THE BLEEDERS WERE CAUTERIZED. THE ARTHROTOMY WAS REPAIRED WITH NUMBER 1 VICRYL AND #2 QUIL. THE SUB CUTANEOUS LAYER WITH 2-0 VICRYL AND A SUBCUTICULAR RUNNING 3-0 QUIL WAS USED THEN DERMABOND. ONCE THE DERMABOND WAS DRY A STERILE DRESSING WAS APPLIED. THE WOUND WAS WASHED AND A STERILE DRESSING WAS APPLIED. PATIENT WAS EXTUBATED. Estimated Blood Loss 200 Pathology None sent Complications No immediate complications Condition Stable Disposition PACU
[2025-01-17] MEDS: fentaNYL CITRATE INJ (*CRX) 100 MCG/2 ML VIAL 25 MCG IV PUSH ×3 (15:00→15:50)
[2025-01-17] MEDS: KETOROLAC 15 MG/ML VIAL (*BKC) IV PUSH ×2 (16:51→21:24)
[2025-01-17] MEDS: ONDANSETRON INJ 4 MG/2 ML VIAL IV PUSH (16:52)
[2025-01-17] MEDS: SENNA/DOCUSATE SODIUM TABLET 2 TAB PO (16:52)
[2025-01-17] MEDS: SODIUM CHLORIDE 0.9% IV 1,000 ML 125 ML IV CONT (16:53)
[2025-01-17] MEDS: FAMOTIDINE 20 MG TABLET PO (21:20)
[2025-01-17] MEDS: ASPIRIN 325 MG ENTERIC TABLET PO (21:20)
[2025-01-17] MEDS: ceFAZolin 2 GM/D5W 50 ML 2 GM/50 ML BAG IVPB (21:24)
[2025-01-18] VITALS (7 sets, daily range): BP systolic 122–142; BP diastolic 59–65; PULSE 73–81; RESP 18–20; TEMP 36.9–38.3; O2SAT 96–100
[2025-01-18] MEDS: KETOROLAC 15 MG/ML VIAL (*BKC) IV PUSH ×3 (04:18→16:22)
[2025-01-18] MEDS: ceFAZolin 2 GM/D5W 50 ML 2 GM/50 ML BAG IVPB ×2 (04:18→11:14)
[2025-01-18 07:10] LABS: Hematocrit 33.1 % (37.0-47.0); Hemoglobin 11.2 g/dL (12.0-15.0); Immature Granulocyte Percent A 0.5 % (0-0.5); Lymphocytes Absolute Auto 1.22 K/mm3 (0.9-3.2); Mean Corpuscular HGB Conc 33.8 g/dl (32-36); Mean Corpuscular Hemoglobin 31.4 pg (26-34); Mean Corpuscular Volume 92.7 fl (80-100); Nucleated Red Blood Cells Absolute Auto 0.000 K/mm3 (0.0-0.012); Nucleated Red Blood Cells Perc 0.0 % (0.0-0.2); Platelet Count Result 193 k/mm3 (150-375); Red Blood Count 3.57 M/mm3 (4.2-5.4); White Blood Count 12.4 K/mm3 (4.5-10.0)
[2025-01-18 07:32] LABS: Anion Gap 6 mmol/L (4-12); Blood Urea Nitrogen 12 mg/dL (7-17); Calcium 8.5 mg/dL (8.4-10.2); Carbon Dioxide 26 mmol/L (22-30); Chloride 109 mmol/L (98-107); Estimated CRCL calculation 81 ml/min; Estimated Glomerular Filt Rate > 60; Glucose 101 mg/dL (65-110); Potassium 3.8 mmol/L (3.4-5.0); Sodium 141 mmol/L (137-145)
--- NOTE | 2025-01-18 07:33 | WPDANESPN ---
Anes - Prog Note Post-Op Date/Time: 01/18/25 07:33 Cardiovascular status: normal Respiratory status: normal Airway patency: baseline Mental status: baseline Post-Op hydration status: normal Vital Signs: Last Vital Signs Temp 37.3 C 01/18/25 05:13 Pulse 76 01/18/25 05:13 Resp 18 01/18/25 05:13 BP 142/65 H 01/18/25 05:13 Pulse Ox 99 01/18/25 05:13 O2 Del Method Room Air 01/17/25 16:00 O2 Flow Rate 8 01/17/25 15:00 Pain Score (VAS): 3 I/O: Intake & Output 01/17/25 01/17/25 01/18/25 15:59 23:59 07:59 Intake Total 50 490 1100 Balance 50 490 1100 Laboratory Tests 01/18/25 06:21 01/18/25 06:21 01/17/25 01/17/25 01/18/25 08:33 09:01 06:21 WBC 12.4 H RBC 3.57 L Hgb 11.2 L Hct 33.1 L MCV 92.7 MCH 31.4 MCHC 33.8 RDW 13.1 Plt Count 193 MPV 9.1 Immature Gran % (Auto) 0.5 Neut % (Auto) 80.4 H Lymph % (Auto) 9.8 L [place] % (Auto) 8.8 H Eos % (Auto) 0.2 Baso % (Auto) 0.3 Lymph # (Auto) 1.22 [place] # (Auto) 1.1 H Eos # (Auto) 0.0 Baso # (Auto) 0.0 Abs Immat Gran (auto) 0.06 H Absolute Neuts (auto) 10.0 H Absolute Nucleated RBC 0.000 Nucleated RBC % 0.0 Sodium 141 Potassium 3.8 Chloride 109 H Carbon Dioxide 26 Anion Gap 6 BUN 12 Creatinine 0.73 Estim Creat Clear Calc 81 Estimated GFR > 60 Glucose 101 POC Capillary Glucose 101 Calcium 8.5 Urine Color Yellow Urine Appearance Clear Urine pH 5.0 Ur Specific [place] 1.017 Urine Protein Negative Urine Glucose (UA) Negative Urine Ketones Negative Ur Blood (Man) Negative Urine Nitrate Negative Urine Bilirubin Negative Urine Urobilinogen 0.2 Leukocyte Esterase Rfl Negative Post-procedural complaints: none Patient Feedback: Patient satisfied with anesthetic care.
[2025-01-18] MEDS: SENNA/DOCUSATE SODIUM TABLET 2 TAB PO ×2 (07:40→16:22)
[2025-01-18] MEDS: FAMOTIDINE 20 MG TABLET PO (07:41)
[2025-01-18] MEDS: ASPIRIN 325 MG ENTERIC TABLET PO (07:41)
[2025-01-18] MEDS: oxyCODONE/ACETAMINOPHEN (*CRX) 10-325 MG TABLET 1 TAB PO (13:27)
[2025-01-18] MEDS: ACETAMINOPHEN 500 MG TABLET PO (14:36)
--- NOTE | 2025-01-18 17:19 | P.PNOP_ITS ---
Progress Note: A&P Assessment and Plan (1) Degenerative joint disease of knee: Qualifiers: Osteoarthritis type: primary Laterality: left Qualified Code(s): M17.12 - Unilateral primary osteoarthritis, left knee Code(s): M17.9 - Osteoarthritis of knee, unspecified Status: Acute Assessment and Plan: POD 1 DOING WELL. OK TO DC HOME F/U IN 3 WEEKS Subjective Subjective Date/Time Seen: 01/18/25 17:19 Interval history: POD 1 DOING WELL. NO CALF PAIN. GOOD PROGRESS WITH PT Exam Extrem: Other: VSS AFEBRILE DRESSING DRY NV INTACT NEG HOMANS SIGN CALF AND THIGH SOFT NON TENDER Objective Data Vital Signs Vital Signs: Vital Signs - 24 hr 01/17/25 18:10 01/17/25 21:21 01/18/25 00:40 Temperature 36.7 C 37.1 C 36.9 C Pulse Rate 74 76 73 Respiratory Rate 14 18 20 Blood Pressure 139/70 140/63 137/59 L Pulse Oximetry 99 98 100 Oxygen Delivery 01/18/25 05:13 01/18/25 07:58 01/18/25 08:00 Temperature 37.3 C Pulse Rate 76 Respiratory Rate 18 Blood Pressure 142/65 H Pulse Oximetry 99 Oxygen Delivery Room Air Room Air 01/18/25 08:00 01/18/25 11:44 01/18/25 14:00 Temperature 37.6 C 38.3 C H Pulse Rate 79 81 Respiratory Rate 18 18 Blood Pressure 122/64 135/65 Pulse Oximetry 100 96 99 Oxygen Delivery Room Air 01/18/25 14:36 01/18/25 15:36 Temperature 38.3 C H 37.7 C H Pulse Rate Respiratory Rate Blood Pressure Pulse Oximetry Oxygen Delivery Intake/Output Intake/Output: Intake & Output 01/15/25 01/16/25 01/17/25 01/18/25 23:59 23:59 23:59 23:59 Intake Total 540 3330 Balance 540 3330 Meds/Results Medications: Active Medications Generic Name Dose Route Start Last Admin Trade Name Freq PRN Reason Stop Dose Admin Acetaminophen 500 mg 01/17/25 16:11 01/18/25 14:36 Acetaminophen 500 Mg Tablet PO 500 mg Q6H PRN Administration Pain Rated 1-3 Aspirin 325 mg 01/17/25 21:00 01/18/25 07:41 Aspirin 325 Mg Enteric Tablet PO 325 mg Q12HR CJ Administration Diazepam 5 mg 01/17/25 16:11 Diazepam (*Crx) 5 Mg Tablet PO Q8H PRN Spasms Diphenhydramine HCl 25 mg 01/17/25 16:11 Diphenhydramine Hcl Inj 50 Mg/Ml Vial IV PUSH Q6H PRN Itching Famotidine 20 mg 01/17/25 21:00 01/18/25 07:41 Famotidine 20 Mg Tablet PO 20 mg Q12HR CJ Administration Hydromorphone HCl 1 mg 01/17/25 16:11 Hydromorphone Hcl Inj (*Crx) 1 Mg/Ml Syr IV PUSH Q2H PRN Breakthrough Pain Rated 7-10 or NPO Hydromorphone HCl 0.5 mg 01/17/25 16:11 Hydromorphone Hcl Inj (*Crx) 1 Mg/Ml Syr IV PUSH Q2H PRN Breakthrough Pain Rated 4-6 or NPO Ibuprofen 800 mg in 200 mls @ 400 mls/hr 01/17/25 16:11 Caldolor 800 Mg/200 Ml IVPB Q6H PRN Breakthrough Pain Rated 1-3 or NPO Naloxone HCl 0.1 mg 01/17/25 16:11 Naloxone Hcl 0.4 Mg/Ml Vial IV PUSH Q2M PRN Opiate Reversal Ondansetron HCl 4 mg 01/17/25 16:11 01/17/25 16:52 Ondansetron Inj 4 Mg/2 Ml Vial IV PUSH 4 mg Q4H PRN Administration Nausea And Vomiting Oxycodone/Acetaminophen 1 tablet 01/17/25 16:11 Oxycodone/Acetaminophen (*Crx) 5-325 Mg Tablet PO Q4H PRN Pain Rated 4-6 Oxycodone/Acetaminophen 1 tab 01/17/25 16:11 01/18/25 13:27 Oxycodone/Acetaminophen (*Crx) 10-325 Mg Tablet PO 1 tab Q6H PRN Administration Pain Rated 7-10 Polyethylene Glycol 17 gm 01/18/25 09:00 01/18/25 07:41 Polyethylene Glycol 3350 17 Gm Powd.Pack PO 17 gm QAM CJ Administration Senna/Docusate Sodium 2 tab 01/17/25 17:00 01/18/25 16:22 Senna/Docusate Sodium Tablet PO 2 tab BID CJ Administration Radiology Results: ITS Impressions Knee X-Ray 01/17/25 14:51 IMPRESSION: 1. Left total knee arthroplasty, negative for postoperative purposes. Labs Labs: Laboratory Results - last 24 hr 01/18/25 06:21 WBC 12.4 H RBC 3.57 L Hgb 11.2 L Hct 33.1 L MCV 92.7 MCH 31.4 MCHC 33.8 RDW 13.1 Plt Count 193 MPV 9.1 Immature Gran % (Auto) 0.5 Neut % (Auto) 80.4 H Lymph % (Auto) 9.8 L [place] % (Auto) 8.8 H Eos % (Auto) 0.2 Baso % (Auto) 0.3 Lymph # (Auto) 1.22 [place] # (Auto) 1.1 H Eos # (Auto) 0.0 Baso # (Auto) 0.0 Abs Immat Gran (auto) 0.06 H Absolute Neuts (auto) 10.0 H Absolute Nucleated RBC 0.000 Nucleated RBC % 0.0 Sodium 141 Potassium 3.8 Chloride 109 H Carbon Dioxide 26 Anion Gap 6 BUN 12 Creatinine 0.73 Estim Creat Clear Calc 81 Estimated GFR > 60 Glucose 101 Calcium 8.5
== END 2025-01-18 17:55 | disposition home or self-care (01) ==
LOC: ANHSURGERY 08:02 → ANH3MEDSUR 16:26
PROVIDERS: PCP Family Medicine; Visit Provider Orthopaedic Surgery
PROC: (CPT 27447; principal; 2025-01-17 10:30)
DX: M17.12 Unilateral primary osteoarthritis, left knee (principal); M25.762 Osteophyte, left knee; G89.18 Other acute postprocedural pain; I10 Essential (primary) hypertension; E11.9 Type 2 diabetes mellitus without complications; E56.9 Vitamin deficiency, unspecified; J44.9 Chronic obstructive pulmonary disease, unspecified; E78.49 Other hyperlipidemia; E87.6 Hypokalemia; K21.9 Gastro-esophageal reflux disease without esophagitis; G47.10 Hypersomnia, unspecified; R35.0 Frequency of micturition; I49.9 Cardiac arrhythmia, unspecified; F32.9 Major depressive disorder, single episode, unspecified; E23.6 Other disorders of pituitary gland; R31.29 Other microscopic hematuria; G56.03 Carpal tunnel syndrome, bilateral upper limbs; F41.8 Other specified anxiety disorders; M47.897 Other spondylosis, lumbosacral region; M47.896 Other spondylosis, lumbar region; Z79.4 Long term (current) use of insulin; Z79.1 Long term (current) use of non-steroidal anti-inflammatories (NSAID); Z79.85 Long-term (current) use of injectable non-insulin antidiabetic drugs; Z98.890 Other specified postprocedural states; Z98.51 Tubal ligation status; Z98.61 Coronary angioplasty status; Z87.891 Personal history of nicotine dependence; Z86.0100 Personal history of colon polyps, unspecified; Z80.1 Family history of malignant neoplasm of trachea, bronchus and lung; Z82.49 Family history of ischemic heart disease and other diseases of the circulatory system
CPT/HCPCS: 64447; 27447; 36415; 73560; 80048; 81003; 82948; 85025; 97110; 97161; 97165; 97530; J0690; A9270; C1713; C1776; J0166; J1100; J1171; J1885; J2003; J2250; J2270; J2405; J2704; J2795; J3010; J3373; J7030; J7120

== ENCOUNTER 2025-05-02 13:50 | Outpatient (CLI) | payer BC, SELFPAY ==
[2025-05-02 14:12] LABS: Hematocrit 35.6 % (37.0-47.0); Hemoglobin 12.1 g/dL (12.0-15.0); Immature Granulocyte Percent A 0.2 % (0-0.5); Lymphocytes Absolute Auto 1.82 K/mm3 (0.9-3.2); Mean Corpuscular HGB Conc 34.0 g/dl (32-36); Mean Corpuscular Hemoglobin 29.7 pg (26-34); Mean Corpuscular Volume 87.3 fl (80-100); Nucleated Red Blood Cells Absolute Auto 0.000 K/mm3 (0.0-0.012); Nucleated Red Blood Cells Perc 0.0 % (0.0-0.2); Platelet Count Result 218 k/mm3 (150-375); Red Blood Count 4.08 M/mm3 (4.2-5.4); White Blood Count 6.0 K/mm3 (4.5-10.0)
[2025-05-02 14:41] LABS: Alanine Aminotransferase 11 U/L (6-35); Albumin Level 4.3 g/dL (3.5-5.1); Alkaline Phosphatase 57 U/L (38-126); Anion Gap 8 mmol/L (4-12); Aspartate Amino Transferase 21 U/L (14-36); Bilirubin,Total 0.2 mg/dL (0.2-1.3); Blood Urea Nitrogen 16 mg/dL (7-17); Calcium 9.2 mg/dL (8.4-10.2); Carbon Dioxide 28 mmol/L (22-30); Chloride 103 mmol/L (98-107); Estimated Glomerular Filt Rate > 60; Glucose 96 mg/dL (65-110); Potassium 3.8 mmol/L (3.4-5.0); Sodium 139 mmol/L (137-145); Total Protein 7.1 g/dL (6.3-8.2)
[2025-05-02 15:00] LABS: MALB Creatinine Ratio 33.4 mg/g (0-30)
--- OUTSIDE RECORDS SUMMARY | 2025-05-02 17:51 | XMS_ITS | Clinical Summary ---
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
== END 2025-05-02 13:51 | disposition home or self-care (01) ==
LOC: ANHLAB 13:51
PROVIDERS: PCP Family Medicine; Visit Provider Nurse Practitioner Family
DX: E11.9 Type 2 diabetes mellitus without complications (principal); Z79.4 Long term (current) use of insulin; Z13.1 Encounter for screening for diabetes mellitus
CPT/HCPCS: 36415; 80053; 82043; 85025